=== PATIENT | male | born 1975 | race Hispanic/Latino ===

== ENCOUNTER 2017-01-26 17:33 | Inpatient (IN) | payer OTHER ==
[2017-01-26] MEDS ORDERED: HYDROmorphone 2 mg/ml ISec IVP STA (18:03)
--- NOTE | 2017-01-26 18:11 | ED PDOC ---
Arrival/HPI - General Chief Complaint: Male Genitourinary Time Seen by Provider: 01/26/17 17:51 Historian: Patient - History of Present Illness Narrative History of Present Illness (Text): 01/26/17 18:04 41yo male with PMHx of DM and PE present with complaint of swollen/painful scrotum x days. States it started as abscess on his left sided buttock clef, which he punctured with drained, but then it became worse and spread to his scrotum. States it became worse 2days ago, but he decided to come in today because he is unable to urinate note secondary to the scrotal swelling. States the penis went inside, covered by the scrotal swelling. He denies fever, chills , nausea, vomiting, abdominal pain in ED. Past Medical History - Provider Review Nursing Documentation Reviewed: Yes - Tetanus Immunization Tetanus Immunization: Unknown - Cardiac Hx Cardiac Disorders: Yes Hx Hypertension: Yes Hx Peripheral Edema: Yes - Pulmonary Hx Respiratory Disorders: Yes Hx Chronic Obstructive Pulmonary Disease (COPD): Yes Hx Pulmonary Embolism: Yes Hx Sleep Apnea: Yes - Neurological Hx Neurological Disorder: No - HEENT Hx HEENT Disorder: No - Renal Hx Renal Disorder: No - Endocrine/Metabolic Hx Endocrine Disorders: Yes Hx Diabetes Mellitus Type 1: Yes - Hematological/Oncological Hx Blood Disorders: No - Integumentary Hx Dermatological Disorder: No - Musculoskeletal/Rheumatological Hx Musculoskeletal Disorders: Yes Hx Back Pain: Yes Hx Falls: No - Gastrointestinal Hx Gastrointestinal Disorders: No - Genitourinary/Gynecological Hx Genitourinary Disorders: No - Psychiatric Hx Psychophysiologic Disorder: No Hx Substance Use: Yes - Past Surgical History Past Surgical History: No Previous - Suicidal Assessment Feels Threatened In Home Enviroment: No Family/Social History - Physician Review Nursing Documentation Reviewed: Yes Family/Social History: Unknown Family HX Smoking Status: Heavy Smoker > 10 Cigarettes Daily Hx Alcohol Use: No Hx Substance Use: Yes Allergies/Home Meds Allergies/Adverse Reactions: Allergies No Known Allergies Allergy (Verified 01/26/17 17:55) Home Medications: Home Meds Medication Instructions Recorded Confirmed Atorvastatin [Lipitor] 40 mg PO DAILY 01/26/17 01/26/17 Cholecalciferol [Vitamin D] 50,000 unit PO SAT 01/26/17 01/26/17 Clindamycin [Cleocin] 300 mg PO TID 01/26/17 01/26/17 Dulaglutide [Trulicity] 1.5 mg SC QWK 01/26/17 01/26/17 Empagliflozin [Jardiance] 10 mg PO BID 01/26/17 01/26/17 Furosemide [Lasix] 40 mg PO DAILY 01/26/17 01/26/17 Glyburide/Metformin HCl 2 tab PO BID 01/26/17 01/26/17 [Glyburide-Metformin 2.5-500 mg] Insulin Glargine,Hum.rec.anlog 60 unit SQ DAILY 01/26/17 01/26/17 [Toucristelao Solostar] Potassium Chloride [K-Dur 20] 20 meq PO BID 01/26/17 01/26/17 Pregabalin [Lyrica] 75 mg PO BID 01/26/17 01/26/17 Venlafaxine [Effexor-XR] 75 mg PO DAILY 01/26/17 01/26/17 Warfarin [Coumadin] 5 mg PO QOTHERDAY 01/26/17 01/26/17 Warfarin [Coumadin] 6 mg PO MWF 01/26/17 01/26/17 oxyCODONE [oxyCODONE Immediate 30 mg PO TID PRN 01/26/17 01/26/17 Release Tab] Review of Systems - Physician Review All systems were reviewed & negative as marked: Yes - Review of Systems Constitutional: Normal Eyes: Normal ENT: Normal Respiratory: Normal Cardiovascular: Normal Gastrointestinal: Normal Genitourinary Male: Other (Scrotal swelling) Musculoskeletal: Normal Skin: Normal Neurological: Normal Endocrine: Normal Hemo/Lymphatic: Normal Psychiatric: Normal Physical Exam Vital Signs Reviewed: Yes Vital Signs Temp Pulse Resp BP Pulse Ox 01/26/17 17:52 99.1 F 107 H 20 135/74 97 Temperature: Afebrile Blood Pressure: Normal Pulse: Tachycardic Respiratory Rate: Normal Appearance: Positive for: Well-Appearing, Non-Toxic, Comfortable, Other ( Morbidly obese) Pain Distress: Moderate Mental Status: Positive for: Alert and Oriented X 3 - Systems Exam Head: Present: Atraumatic, Normocephalic Pupils: Present: PERRL Extroacular Muscles: Present: EOMI Conjunctiva: Present: Normal Mouth: Present: Moist Mucous Membranes Neck: Present: Normal Range of Motion Respiratory/Chest: Present: Clear to Auscultation, Good Air Exchange. No: Respiratory Distress, Accessory Muscle Use Cardiovascular: Present: Regular Rate and Rhythm, Normal S1, S2. No: Murmurs Abdomen: Present: Normal Bowel Sounds. No: Tenderness, Distention, Peritoneal Signs Genitourinary Male: Present: Testicle Tenderness, Erythema (From the mid buttocks cleft to diffuse scrotum), Testicle Swelling, Other (No crepitus was noted). No: Penile Swelling (Unable to visualize secondary to scrotal swelling) Back: Present: Normal Inspection Upper Extremity: Present: Normal Inspection. No: Cyanosis, Edema Lower Extremity: Present: Normal Inspection. No: Edema Neurological: Present: GCS=15, CN II-XII Intact, Speech Normal Skin: Present: Warm, Dry, Normal Color. No: Rashes Psychiatric: Present: Alert, Oriented x 3, Normal Insight, Normal Concentration Medical Decision Making ED Course and Treatment: 01/26/17 21:02 IMPRESSION: 1. There is significant scrotal wall thickening/swelling. Clinical correlation is recommended. See the CT abdomen/pelvis report from the same day for further discussion. 2. Increased vascular flow is visualized within the right epididymis, consistent with epididymitis. 3. Bilateral epididymal cysts. There is enlargement of the bilateral epididymal heads, which are heterogeneous in echogenicity. 4. There is physiologic vascular flow within the bilateral testes, without evidence of torsion. 01/26/17 21:03 IMPRESSION: 1. Significant scrotal fluid and surrounding soft tissue swelling are visualized. There are multiple foci of gas within the scrotum extending towards the perineum. In the absence of trauma, these findings are concerning for necrotizing infection/necrotizing fasciitis. 2. Enlarging lymph nodes are seen bilaterally. Mildly enlarged intrapelvic lymph nodes are also visualized. 3. The gallbladder is distended with layering sludge and probable gallstones. Clinical correlation is recommended. 4. There is hypodense fatty infiltration of the liver. Hepatomegaly. 5. Splenomegaly. 6. Incidental/non-acute findings are described above. Dictated By: Lance Garcia MD, MD Dictated Date/Time: 01/26/171932 Signed By: Lance Moore MD Date Signed: 1932 Transcribed By: OLIMPIA Transcribe Date/Time : 01/26/171932 SANJAY/BETO 01/26/17 21:04 PT presented for stated history. He was physically in pain. His pain was controlled in ED with medication. He had prominent erythema/swelling of his perineum/scrotum. He have leukocytosis. Plasma Lactic acid was elevated. He was also hyponatremic. both Abdominal/pelvic/Testicular imaging result as noted above. Case was DW Dr. Cummins, while he was in ED. He saw the patient and accepted pt to his service. He requested Drs. Lara, Araseli, sami consult. Case was DW the surgical sales representative who saw pt in ED and DC findings with Dr. Lara. the community development aide paged Dr. Lara without response. The Resident notes that Dr Mclean wants him to call him back after seeing the pt. Dr. Lara is aware of the case and plan to take patient to OR at 1000pm. Dr. gallardo also aware of the case. Pt was started on Vancomycin and Zosyn in ED. Fluid was ordered EKG NSR; RBBB @95bpm the surgical sales representative added VBG. - Lab Interpretations Lab Results: 01/26/17 18:20 01/26/17 18:20 Lab Results 01/26/17 19:18: Lactic Acid 2.7 H 01/26/17 18:20: PT 28.0 H, INR 2.52 H, APTT 37.7 H 01/26/17 18:20: Sodium 129 L, Potassium 4.1, Chloride 97 L, Carbon Dioxide 23, Anion Gap 14, BUN 11, Creatinine 0.8, Est GFR ( Amer) > 60, Est GFR (Non- Af Amer) > 60, Random Glucose 163 H, Calcium 9.1, Total Bilirubin 1.0, AST 32, ALT 25, Alkaline Phosphatase 155 H, Total Protein 7.1, Albumin 3.5, Globulin 3.6 , Albumin/Globulin Ratio 1.0 L 01/26/17 18:20: WBC 20.2 H D, RBC 4.31, Hgb 12.5 L, Hct 37.6 L, MCV 87.2, MCH 29.0, MCHC 33.2, RDW 16.2 H, Plt Count 207, MPV 9.9, Gran % 87.9 H, Lymph % ( Auto) 6.3 L, White % (Auto) 5.6, Eos % (Auto) 0.1 L, Baso % (Auto) 0.1, Gran # 17.78 H, Lymph # 1.3, White # 1.1 H, Eos # 0.0, Baso # 0.02 - RAD Interpretation Radiology Orders: 01/26/17 18:03 ABD & PELVIS IV CONTRAST ONLY [CT] Stat 01/26/17 19:16 TESTES DUPLEX COMPLETE [US] Stat - Medication Orders Current Medication Orders: Hydromorphone HCl (Dilaudid) 1 mg IVP Q4H PRN PRN Reason: Pain, severe (8-10) Sodium Chloride (Sodium Chloride 0.9%) 1,000 mls @ 999 mls/hr IV .Q1H1M STA Stop: 01/26/17 21:46 Last Admin: 01/26/17 20:50 Dose: 999 mls/hr eMAR Start Stop Document 01/26/17 20:50 EQ (Rec: 01/26/17 20:50 EQ [id number]) Intravenous Solution Start Date 01/26/17 Start Time 20:50 Ondansetron HCl (Zofran Inj) 4 mg IVP Q6H PRN PRN Reason: Nausea/Vomiting Discontinued Medications Hydromorphone HCl (Dilaudid) 2 mg IVP STAT STA Stop: 01/26/17 18:04 Last Admin: 01/26/17 18:26 Dose: 2 mg MAR Pain Assessment Document 01/26/17 18:26 EQ (Rec: 01/26/17 18:26 EQ [id number]) Pain Reassessment Is this a pain reassessment? No Sleep Is patient sleeping during reassessment? No Presence of Pain Presence of Pain Yes Pain Scale Used Pain Scale Used Numeric IVP Administration Document 01/26/17 18:26 EQ (Rec: 01/26/17 18:26 EQ [id number]) Charges for Administration # of IVP Administrations 1 Vancomycin HCl (Vancomycin 1gm) 1 gm in 250 mls @ 167 mls/hr IVPB STAT STA PRN Reason: Protocol Stop: 01/26/17 20:52 Last Admin: 01/26/17 20:50 Dose: 167 mls/hr eMAR Start Stop Document 01/26/17 20:50 EQ (Rec: 01/26/17 20:51 EQ [id number]) Intravenous Solution Start Date 01/26/17 Start Time 20:50 Piperacillin Sod/Tazobactam Sod (Zosyn 3.375 In Ns 100ml) 100 mls @ 200 mls/hr IVPB STAT STA PRN Reason: Protocol Stop: 01/26/17 19:53 Last Admin: 01/26/17 20:36 Dose: 200 mls/hr eMAR Start Stop Document 01/26/17 20:36 EQ (Rec: 01/26/17 20:36 EQ [id number]) Intravenous Solution Start Date 01/26/17 Start Time 20:36 Sodium Chloride 4,500 ml/ IV (SUPPLIES) 4,500 mls @ 9,198.84 mls/hr IV ONCE ONE PRN Reason: 60 ML/KG/HR Stop: 01/26/17 20:47 Disposition/Present on Arrival - Present on Arrival Any Indicators Present on Arrival: No History of DVT/PE: Yes History of Uncontrolled Diabetes: No Urinary Catheter: No History of Decub. Ulcer: No History Surgical Site Infection Following: None - Disposition Have Diagnosis and Disposition been Completed?: Yes Diagnosis: Scrotal abscess, Perirectal abscess, Hyponatremia, Necrotizing fasciitis, Acute epididymitis Disposition: HOSPITALIZED Disposition Time: 19:30 Patient Problems: Current Active Problems Problem Status Onset Acute epididymitis Acute Hyponatremia Acute Necrotizing fasciitis Acute Perirectal abscess Acute Scrotal abscess Acute Condition: FAIR
[2017-01-26 18:36] LABS: BASO # 0.02 K/mm3 (0.0-2.0); BASO % 0.1 % (0.0-3.0); EOS % 0.1 % (1.5-5.0); GRAN # 17.78 (1.4-6.5); GRAN % 87.9 % (50.0-68.0); HEMATOCRIT 37.6 % (42.0-52.0); LYMPH # 1.3 (1.2-3.4); LYMPH % 6.3 % (22.0-35.0); MEAN CELL VOLUME 87.2 fl (80.0-105.0); MEAN CORPUSCULAR HGB CONC 33.2 g/dl (31.0-37.0); MEAN PLATELET VOLUME 9.9 fl (7.0-11.0); MONO # 1.1 (0.1-0.6); MONO % 5.6 % (1.0-6.0); RED CELL DISTRIBUTION WIDTH 16.2 % (11.5-14.5); WHITE BLOOD COUNT 20.2 10^3/ul (4.5-11.0)
[2017-01-26 18:42] LABS: ALKALINE PHOSPHATASE 155 U/L (38-126); ALT/SGPT 25 U/L (7-56); AST/SGOT 32 U/L (17-59); BLOOD UREA NITROGEN 11 mg/dL (7-21); CALCIUM 9.1 mg/dL (8.4-10.5); CARBON DIOXIDE 23 mmol/L (21-33); CHLORIDE 97 mmol/L (98-107); GFR AFRICAN-AMERICAN > 60; GLUCOSE,RANDOM 163 mg/dL (70-110); POTASSIUM 4.1 mmol/L (3.6-5.0); SODIUM 129 mmol/L (132-148); TOTAL PROTEIN 7.1 g/dL (5.8-8.3)
[2017-01-26] MEDS ORDERED: Iohexol 350 MG/100 ML VIAL ONE (18:49)
[2017-01-26] MEDS ORDERED: Vancomycin 1gm in NS 250ml 1 GM/250 ML BAG IVPB STA (19:23)
[2017-01-26] MEDS ORDERED: Piperacillin/Tazobact 3.375 gm 100 ML IVPB STA (19:24)
--- NOTE | 2017-01-26 19:34 | CT ---
EXAM: CT Abdomen and Pelvis With Intravenous Contrast EXAM DATE/TIME: 01/26/2017 6:03 PM CLINICAL HISTORY: The patient age is 41 years old and is male; Condition or disease; Abscess; Abscess location: Scrotal abcess; Additional info: Pelvic scrotal pain/swelling Facility exam id and description: Ct abdpelciv abd pelvis iv contrast only TECHNIQUE: Axial computed tomography images of the abdomen and pelvis with intravenous contrast. All CT scans at this facility use one or more dose reduction techniques, viz.: automated exposure control; ma/kV adjustment per patient size (including targeted exams where dose is matched to indication; i.e. head); or iterative reconstruction technique. Coronal and sagittal reformatted images were created and reviewed. CONTRAST: 100 mL of omni administered intravenously. COMPARISON: No relevant prior studies available. FINDINGS: Lower thorax: Mild atelectatic changes are identified within the right middle lobe of the lung. ABDOMEN: Liver: There is hypodense fatty infiltration of the liver. The liver measures 21.9 cm in the craniocaudad dimension, consistent with hepatomegaly. Gallbladder and bile ducts: The gallbladder is distended with layering sludge and probable gallstones of increased density. Pancreas: Normal contour, without acute peripancreatic stranding. Spleen: The spleen measures 14.6 cm in the AP dimension, consistent with splenomegaly. Adrenals: No mass. Kidneys and ureters: Mild nonspecific bilateral perinephric standing is seen. There is no hydronephrosis bilaterally. Stomach and bowel: There is moderate fecal material within the colon. Appendix: No findings to suggest acute appendicitis. PELVIS: Bladder: No mass. Reproductive: Calcifications identified within the prostate. ABDOMEN and PELVIS: Intraperitoneal space: No free air. Bones/joints: Degenerative changes are identified within the visualized lower thoracic spine. Soft tissues: There is significant soft tissue swelling within each groin and anterior pelvic soft tissues extending into the scrotum. Significant scrotal fluid is visualized. There are multiple foci of gas within the scrotum extending towards the perineum. In the absence of trauma, these findings are concerning for necrotizing infection/necrotizing fasciitis. There is a small fat containing ventral abdominal hernia. Vasculature: Mild atherosclerotic changes are identified. No abdominal aortic aneurysm. Lymph nodes: Enlarging lymph nodes are seen bilaterally. A left inguinal lymph node measures 2.3 cm in length. Mildly enlarged intrapelvic lymph nodes are also visualized. There is no significant retroperitoneal lymphadenopathy. IMPRESSION: 1. Significant scrotal fluid and surrounding soft tissue swelling are visualized. There are multiple foci of gas within the scrotum extending towards the perineum. In the absence of trauma, these findings are concerning for necrotizing infection/necrotizing fasciitis. 2. Enlarging lymph nodes are seen bilaterally. Mildly enlarged intrapelvic lymph nodes are also visualized. 3. The gallbladder is distended with layering sludge and probable gallstones. Clinical correlation is recommended. 4. There is hypodense fatty infiltration of the liver. Hepatomegaly. 5. Splenomegaly. 6. Incidental/non-acute findings are described above.
[2017-01-26 19:50] LABS: INR 2.52 (0.93-1.08); PARTIAL THROMBOPLASTIN TIME 37.7 Seconds (25.1-36.5)
--- NOTE | 2017-01-26 20:23 | CP.PCM.HP ---
<Edinson Carrera - Last Filed: 01/26/17 21:53> History of Present Illness - History of Present Illness History of Present Illness: CC: swollen/painful scrotum Subjective: HPI: Patient is a 41 year old male with past medical history of DM, hyperlipidemia, and PE who presents to the Ed for evaluation and treatment of swollen/painful scrotum which began 2 days ago. Patient states there was a lesion on his left buttock which he punctured with a needle leading to yellow drainage. The lesion then spread to his scrotum since drainage.States that he experienced multiple buttock lesions in the past. Admits to sharp localized pain in the scrotal region. Rated a 10/10. Exacerbated by touch and movement. No relieving factors. Admits to decreased urine output which he attributes to the scrotal swelling. Denies recent travel and sick contacts. Patient denies intractable headache, fever, chills, dizziness, blurry vision, ringing in the ears, chest pain, shortness of breath, abdominal pain, nausea, vomiting, diarrhea, constipation, and urinary symptoms. ROS: 12 point review of systems negative except as indicated in HPI PMHx: diabetes, pulmonary embolism, hyperlipidemia, depression PSHx: denies Family Hx: mother- breast cancer; father- colon cancer Social Hx: denies ETOH use, 1 ppd tobacco use for 30 years, denies illicit drug use Medications: Please see medication reconciliation PMD: lizzette smith Pharmacy: medicaid Physical Examination: - Constitutional Appears: Non-toxic, No Acute Distress - Head Exam Head Exam: atraumatic, normocephalic - Eye Exam Eye Exam: Normal appearance, PERRL. absent: Scleral icterus - ENT Exam ENT Exam: Mucous Membranes Moist - Neck Exam Neck exam: Normal Inspection - Respiratory Exam Respiratory Exam: Normal Breathing Pattern - Cardiovascular Exam Cardiovascular Exam: +S1, +S2. absent: Gallop, JVD - GI/Abdominal Exam GI & Abdominal Exam: Normal Bowel Sounds, absent: Distended, Guarding, Pulsatile Mass, Rebound, Rigid - Genital Exam Genital exam: Testicle Tenderness, Erythema (From the mid buttocks cleft to diffuse scrotum), Testicle Swelling, No crepitus was noted. Unable to visualize penis secondary to scrotal swelling - Extremities Exam Extremities exam: Negative for: calf tenderness - Neurological Exam Neurological exam: Patient is awake, alert, responds to verbal stimuli, answers questions appropriately, follows commands, and moves extremities past midline - Psychiatric Exam Psychiatric exam: Normal Affect, Normal Mood - Skin Skin Exam: warm and dry Assessment and Plan: Patient is a 41 year old male with past medical history of DM and PE who presents to the Ed for evaluation and treatment of swollen/painful scrotum. Symptoms of [place] Gangrene; Necrotizing infection/necrotizing fasciitis; Sepsis - greater than 2/4 SIRS criteria met in setting of infectious source - lactic acid elevated - blood cultures x 2 - wound cultures - urine culture - IVF 30cc/kg bolus and IVF maintainence fluids - vancomycin and zosyn - CT abdomen and pelvis IV contrast only- 1. Significant scrotal fluid and surrounding soft tissue swelling are visualized. There are multiple foci of gas within the scrotum extending towards the perineum. In the absence of trauma, these findings are concerning for necrotizing infection/necrotizing fasciitis. 2. Enlarging lymph nodes are seen bilaterally. Mildly enlarged intrapelvic lymph nodes are also visualized. 3. The gallbladder is distended with layering sludge and probable gallstones. 4. There is hypodense fatty infiltration of the liver. Hepatomegaly. 5. Splenomegaly - testicular ultrasound is pending - pain control diluadid prn - general surgery consulted- appreciate recommendations- OR today for potential debridement - urology consulted- appreciated recommendations - infectious disease is consulted- appreciate recommendations Electrolyte Abnormality - hyponatremia IVF - repleted and monitor closely via CMP Elevated INR - patient is on warfarin for PE - FFP ordered- OR planned for today Hx of PE - HR and BP reviewed, trended, and appreciated - hold warfarin as per surgery team Hx of Anemia - Hgb reviewed, trended, and appreciated - monitor closely via CBC - consider iron, tibc, ferritin, peripheral smear pending patients clinical course Hx of Hyperlipidemia - c/w statin - lipid profile pending Hx of Diabetes - hold home diabetic medications - fingersticks ACHS - insulin sliding scale- lispro medium - resume diet as carb consistent once no longer NPO Tobacco Abuse - nicotine patch offered - smoking cessation advised - patient education provided on dangers of tobacco abuse Prophylaxis - DVT ppx- patients INR between 2-3, hold coumadin, will add subq heparin pending patients clinical course - GI ppx- protonix Patient case discussed with and plan approved by attending physician. 01/26/17 20:06 Present on Admission - Present on Admission Any Indicators Present on Admission: Yes Past Patient History - Tetanus Immunizations Tetanus Immunization: Unknown - Past Social History Smoking Status: Heavy Smoker > 10 Cigarettes Daily - CARDIAC Hx Cardiac Disorders: Yes Hx Hypertension: Yes Hx Peripheral Edema: Yes - PULMONARY Hx Respiratory Disorders: Yes Hx Chronic Obstructive Pulmonary Disease (COPD): Yes Hx Pulmonary Embolism: Yes Hx Sleep Apnea: Yes - NEUROLOGICAL Hx Neurological Disorder: No - HEENT Hx HEENT Problems: No - RENAL Hx Chronic Kidney Disease: No - ENDOCRINE/METABOLIC Hx Endocrine Disorders: Yes Hx Diabetes Mellitus Type 1: Yes - HEMATOLOGICAL/ONCOLOGICAL Hx Blood Disorders: No - INTEGUMENTARY Hx Dermatological Problems: No - MUSCULOSKELETAL/RHEUMATOLOGICAL Hx Musculoskeletal Disorders: Yes Hx Back Pain: Yes Hx Falls: No - GASTROINTESTINAL Hx Gastrointestinal Disorders: No - GENITOURINARY/GYNECOLOGICAL Hx Genitourinary Disorders: No - PSYCHIATRIC Hx Psychophysiologic Disorder: No Hx Substance Use: Yes - SURGICAL HISTORY Hx Surgeries: No Meds Allergies/Adverse Reactions: Allergies Allergy/AdvReac Type Severity Reaction Status Date / Time No Known Allergies Allergy Verified 01/26/17 17:55 Results - Vital Signs Recent Vital Signs: Last Vital Signs Temp 99.1 F 01/26/17 17:52 Pulse 107 H 01/26/17 17:52 Resp 20 01/26/17 17:52 BP 135/74 01/26/17 17:52 Pulse Ox 97 01/26/17 17:52 - Labs Result Diagrams: 01/26/17 18:20 01/26/17 18:20 <Maria GDakotah U - Last Filed: 02/07/17 14:49> Results - Vital Signs Recent Vital Signs: Last Vital Signs Temp 97.8 F 02/02/17 08:15 Pulse 57 L 02/02/17 09:13 Resp 18 02/02/17 08:15 BP 137/73 02/02/17 09:13 Pulse Ox 96 02/02/17 08:15 - Labs Result Diagrams: 02/02/17 05:30 02/02/17 05:30 Attending/Attestation - Attestation I have personally seen and examined this patient.: Yes I have fully participated in the care of the patient.: Yes I have reviewed all pertinent clinical information: Yes Notes (Text): Please read/see my dictated notes.
--- NOTE | 2017-01-26 20:42 | CP.PCM.CON ---
History of Present Illness - History of Present Illness History of Present Illness: General Surgery Consult Note for Dr. Lara Reason for consult: Perineal erythema and edema with Ct findings concerning for Dakota'guillermo 41 M with past medical history of DM, hyperlipidemia, DVT and PE who presents to [facility] for swollen and painful scrotum/perineum which began 2 days ago. Patient states he discovered a "boil" on his left buttock 5 days ago which he punctured with a needle to drain. The lesion did not get better and then spread to his scrotum. He states that entire perineum is extremely swollen and painful. The swelling is so severe that he is unable to urinate properly. He reports to having experienced countless buttock lesions in the past that he has drained in similar manner. He rates pain as severe. He describes pain as constant and sharp located in his scrotum with radiation throughout perineum to rectum. He states it is exacerbated by touch and movement. Denies alleviating factors. swelling. Admits subjective fever/chills, diaphoresis, nausea and constipation. Denies headache, SOB, chest pain, abdominal pain, vomiting, diarrhea, incontinence. PMHx: diabetes, pulmonary embolism, hyperlipidemia, depression Meds: as per EMR Allergy: NKDA PSHx: denies Family Hx: breast cancer, colon cancer Social: denies ETOH use, 1 ppd tobacco use for 30 years, denies illicit drug use Review of Systems - Review of Systems All systems: reviewed and no additional remarkable complaints except (as per HPI ) Past Patient History - Tetanus Immunizations Tetanus Immunization: Unknown - Past Social History Smoking Status: Heavy Smoker > 10 Cigarettes Daily - CARDIAC Hx Cardiac Disorders: Yes Hx Hypertension: Yes Hx Peripheral Edema: Yes - PULMONARY Hx Respiratory Disorders: Yes Hx Chronic Obstructive Pulmonary Disease (COPD): Yes Hx Pulmonary Embolism: Yes Hx Sleep Apnea: Yes - NEUROLOGICAL Hx Neurological Disorder: No - HEENT Hx HEENT Problems: No - RENAL Hx Chronic Kidney Disease: No - ENDOCRINE/METABOLIC Hx Endocrine Disorders: Yes Hx Diabetes Mellitus Type 1: Yes - HEMATOLOGICAL/ONCOLOGICAL Hx Blood Disorders: No - INTEGUMENTARY Hx Dermatological Problems: No - MUSCULOSKELETAL/RHEUMATOLOGICAL Hx Musculoskeletal Disorders: Yes Hx Back Pain: Yes Hx Falls: No - GASTROINTESTINAL Hx Gastrointestinal Disorders: No - GENITOURINARY/GYNECOLOGICAL Hx Genitourinary Disorders: No - PSYCHIATRIC Hx Psychophysiologic Disorder: No Hx Substance Use: Yes - SURGICAL HISTORY Hx Surgeries: No Meds Allergies/Adverse Reactions: Allergies Allergy/AdvReac Type Severity Reaction Status Date / Time No Known Allergies Allergy Verified 01/26/17 17:55 - Medications Medications: Current Medications Vancomycin HCl (Vancomycin 1gm) 1 gm in 250 mls @ 167 mls/hr IVPB STAT STA PRN Reason: Protocol Stop: 01/26/17 20:52 Physical Exam - Constitutional Appears: Toxic, In Acute Distress - Head Exam Head Exam: ATRAUMATIC, NORMOCEPHALIC - Eye Exam Eye Exam: EOMI, Normal appearance Pupil Exam: PERRL - ENT Exam ENT Exam: Mucous Membranes Dry - Respiratory Exam Respiratory Exam: NORMAL BREATHING PATTERN - Cardiovascular Exam Cardiovascular Exam: Tachycardia - GI/Abdominal Exam GI & Abdominal Exam: Hernia (reducible ventral hernia), Soft. absent: Tenderness - Exam Exam: Scrotal Swelling, Testicular Tenderness. absent: Uretheral Discharge Additional comments: tender to palpation, erythema, edema through perineum - Extremities Exam Extremities exam: Positive for: normal capillary refill, pedal edema, pedal pulses present - Back Exam Back exam: absent: CVA tenderness (L), CVA tenderness (R) - Neurological Exam Neurological exam: Alert, CN II-XII Intact, Oriented x3 - Psychiatric Exam Psychiatric exam: Normal Affect, Normal Mood - Skin Skin Exam: Dry, Warm Additional comments: erythema/edema in scrotum and perineum numerous scars from previous lanced boils on bilateral buttock and groin Results - Vital Signs Recent Vital Signs: Last Vital Signs Temp 99.1 F 01/26/17 17:52 Pulse 107 H 01/26/17 17:52 Resp 20 01/26/17 17:52 BP 135/74 01/26/17 17:52 Pulse Ox 97 01/26/17 17:52 - Labs Result Diagrams: 01/26/17 18:20 01/26/17 18:20 Assessment & Plan - Assessment and Plan (Free Text) Plan: 41 M with multiple perirectal and scrotal abscesses with CT findings of gas in scrotum and rectum -OR for I&D -Aggressive IV hydration -IV antibiotics -Analgesics/Antiemetics PRN -FFP for coagulopathy -Monitor H/H -Discussed with Dr. Marco Shelby PGY1
[2017-01-26] MEDS ORDERED: Sodium Chloride 0.9% 1,000 ML IV STA (20:46)
--- NOTE | 2017-01-26 20:50 | US ---
EXAM: US Scrotum EXAM DATE/TIME: 01/26/2017 7:16 PM CLINICAL HISTORY: The patient age is 41 years old and is male; Pain; Scrotum pain; Additional info: Testicular swelling/pain Facility exam id and description: Us testidp testes duplex complete TECHNIQUE: Real-time ultrasound of the scrotum with color Doppler and image documentation. COMPARISON: CT - ABD PELVIS IV CONTRAST ONLY 01/26/2017 6:57:16 PM FINDINGS: Right testicle: The right testis measures 3.1 x 1.8 x 1.6 cm. There is physiologic vascular flow within the right testis, without evidence of torsion. No intratesticular mass. Left testicle: The left testis measures 2.7 x 1.9 x 2.6 cm. There is physiologic vascular flow within the left testis, without evidence of torsion. No intratesticular mass Epididymides: The right epididymal head is enlarged and heterogeneous in echogenicity measuring 2.2 x 1.6 x 1.4 cm. Within the right epididymal head, there is a hypoechoic cyst measuring 0.7 x 0.5 x 0.7 cm. Increased vascular flow is visualized within the right epididymis, consistent with epididymitis. The left epididymal head measures 3.4 x 1.2 x 1.1 cm and is enlarged. Within the left epididymal head, there is a 0.4 x 0.3 by 0.5 cm hypoechoic cyst. An additional tiny hypoechoic cyst is seen within the left epididymal head. Scrotum: There is significant scrotal wall thickening/swelling. This measures up to 1.7 cm in thickness. IMPRESSION: 1. There is significant scrotal wall thickening/swelling. Clinical correlation is recommended. See the CT abdomen/pelvis report from the same day for further discussion. 2. Increased vascular flow is visualized within the right epididymis, consistent with epididymitis. 3. Bilateral epididymal cysts. There is enlargement of the bilateral epididymal heads, which are heterogeneous in echogenicity. 4. There is physiologic vascular flow within the bilateral testes, without evidence of torsion.
[2017-01-26] MEDS ORDERED: HYDROmorphone 1 mg/ml ISec IVP PRN (20:55)
[2017-01-26 21:04] LABS: URINE BILIRUBIN NEGATIVE (NEGATIVE); URINE BLOOD LARGE (NEGATIVE); URINE GLUCOSE (UA) >=1000 mg/dL (NEGATIVE); URINE KETONE NEGATIVE (NEGATIVE); URINE LEUKOCYTE ESTERASE TRACE Leu/uL (NEGATIVE); URINE PROTEIN 30 mg/dL (<30 mg/dL); URINE UROBILINOGEN 0.2 E.U./dL (<1 E.U./dL)
[2017-01-26 21:11] LABS: URINE APPEARANCE CLEAR (CLEAR); URINE COLOR YELLOW (YELLOW)
[2017-01-26] MEDS ORDERED: Sodium Chloride 0.9% 1,000 ML IV SCH ×4 (21:15→23:26)
[2017-01-26 21:24] LABS: VENOUS BLOOD GAS BASE EXCESS -0.4 mmol/L (0.0-2.0); VENOUS BLOOD PH 7.31 (7.32-7.43)
[2017-01-26 21:31] LABS: CHOLESTEROL 175 mg/dL (130-200)
[2017-01-26 21:45] LABS: URINE AMORPHOUS SEDIMENT SMALL; URINE BACTERIA MANY (NEG)
[2017-01-26] MEDS ORDERED: Bupivacaine 0.5% Inj(30mL) ONE (21:57)
[2017-01-26] MEDS ORDERED: Oxychlorosene Topical 2 gm Packet TOP ONE (21:58)
[2017-01-26] MEDS ORDERED: Morphine 2 mg/ml ISec IVP PRN (22:06)
[2017-01-26] MEDS ORDERED: Propofol 10 mg/ml Inj (20 ML) ONE (22:20)
[2017-01-26] MEDS ORDERED: Midazolam 2 MG/2 ML VIAL ONE (22:21)
[2017-01-26] MEDS ORDERED: metroNIDAZOLE IV 500 mg/100 ml 500 MG/100 ML BAG ONE (22:23)
[2017-01-26 22:30] VITALS: BMI 44.6
[2017-01-26] MEDS ORDERED: Sevoflurane - Inhalation Anesthetic Liq (250 ml) ONE (22:59)
[2017-01-26] MEDS ORDERED: Ergocalciferol 50,000 Intl Units Cap PO SCH (23:01)
--- NOTE | 2017-01-26 23:25 | PCM.SURG1 ---
Surgeon's Initial Post Op Note - Surgeon's Notes Surgeon: Dr. Lara Maintenance Of Way Supervisor: Heron Ellison PGY1 Type of Anesthesia: General Mask Anesthesia Administered By: Dr. 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
[2017-01-26] MEDS ORDERED: HYDROmorphone 2 mg/ml ISec IVP PRN (23:43)
[2017-01-27] MEDS ORDERED: Piperacillin/Tazobact 3.375 gm 100 ML IVPB SCH
--- NOTE | 2017-01-27 00:34 | CP.PCM.CON ---
<Edinson Carrera - Last Filed: 01/27/17 00:10> History of Present Illness - History of Present Illness History of Present Illness: CC: swollen/painful scrotum Subjective: HPI: Patient is a 41 year old male with past medical history of DM, hyperlipidemia, and PE who presented to the Ed for evaluation and treatment of swollen/painful scrotum which began 2 days ago. Patient states there was a lesion on his left buttock which he punctured with a needle leading to yellow drainage. The lesion then spread to his scrotum since drainage.States that he experienced multiple buttock lesions in the past. Admits to sharp localized pain in the scrotal region. Rated a 10/10. Exacerbated by touch and movement. No relieving factors. Admits to decreased urine output which he attributes to the scrotal swelling. Denies recent travel and sick contacts. Patient was taken to the OR for surgical intervention and was transferred to the ICU for management of initial post operative course. Patient denies intractable headache, fever, chills, dizziness, blurry vision, ringing in the ears, chest pain, shortness of breath, abdominal pain, nausea, vomiting, diarrhea, constipation, and urinary symptoms. ROS: 12 point review of systems negative except as indicated in HPI PMHx: diabetes, pulmonary embolism, hyperlipidemia, depression PSHx: denies Family Hx: mother- breast cancer; father- colon cancer Social Hx: denies ETOH use, 1 ppd tobacco use for 30 years, denies illicit drug use Medications: Please see medication reconciliation PMD: lizzette smith Pharmacy: medicaid Physical Examination: - Constitutional Appears: Non-toxic, No Acute Distress - Head Exam Head Exam: atraumatic, normocephalic - Eye Exam Eye Exam: Normal appearance, PERRL. absent: Scleral icterus - ENT Exam ENT Exam: Mucous Membranes Moist - Neck Exam Neck exam: Normal Inspection - Respiratory Exam Respiratory Exam: Normal Breathing Pattern - Cardiovascular Exam Cardiovascular Exam: +S1, +S2. absent: Gallop, JVD - GI/Abdominal Exam GI & Abdominal Exam: Normal Bowel Sounds, absent: Distended, Guarding, Pulsatile Mass, Rebound, Rigid - Genital Exam Genital exam: ruthie catheters in place, packing noted - Extremities Exam Extremities exam: Negative for: calf tenderness - Neurological Exam Neurological exam: Patient is awake, alert, responds to verbal stimuli, answers questions appropriately, follows commands, and moves extremities past midline - Psychiatric Exam Psychiatric exam: Normal Affect, Normal Mood - Skin Skin Exam: warm and dry Assessment and Plan: Patient is a 41 year old male with past medical history of DM and PE who presents to the Ed for evaluation and treatment of swollen/painful scrotum. Neuro - GCS 15 - monitor closely post anesthesia Cardiovascular Hx of Hyperlipidemia - c/w statin - lipid profile reviewed and appreciated- TAG elevated and low HDL Tobacco Abuse - nicotine patch offered - smoking cessation advised - patient education provided on dangers of tobacco abuse Pulm Hx of PE - HR and BP reviewed, trended, and appreciated - hold warfarin as per surgery team - abg reviewed and appreciated- keep SaO2 > 92% GI - alkaline phos elevated- abdominal ultrasound pending as per primary - HH diet as per surgery in AM - ppx via protonix Infectious Disease Multiple Scrotal Abscess; Sepsis - greater than 2/4 SIRS criteria met in setting of infectious source - lactic acid elevated - blood cultures x 2 - wound cultures - urine culture - IVF 30cc/kg bolus and IVF maintainence fluids - c/w vancomycin and meropenem - CT abdomen and pelvis IV contrast only- 1. Significant scrotal fluid and surrounding soft tissue swelling are visualized. There are multiple foci of gas within the scrotum extending towards the perineum. In the absence of trauma, these findings are concerning for necrotizing infection/necrotizing fasciitis. 2. Enlarging lymph nodes are seen bilaterally. Mildly enlarged intrapelvic lymph nodes are also visualized. 3. The gallbladder is distended with layering sludge and probable gallstones. 4. There is hypodense fatty infiltration of the liver. Hepatomegaly. 5. Splenomegaly - testicular ultrasound- reviewed and appreciated 1. There is significant scrotal wall thickening/swelling. 2. Increased vascular flow is visualized within the right epididymis, consistent with epididymitis. 3. Bilateral epididymal cysts. There is enlargement of the bilateral epididymal heads, which are heterogeneous in echogenicity. 4. There is physiologic vascular flow within the bilateral testes, without evidence of torsion. - pain control diluadid prn - general surgery consulted- appreciate recommendations - urology consulted- appreciated recommendations - infectious disease is consulted- appreciate recommendations Renal/Electrolytes Electrolyte Abnormality - hyponatremia- c/w IVF, monitor closely via CMP Heme Hx of Anemia - Hgb reviewed, trended, and appreciated - monitor closely via CBC - consider iron, tibc, ferritin, peripheral smear pending patients clinical course Endo Hx of Diabetes - hold home diabetic medications - fingersticks ACHS - insulin sliding scale- lispro medium - resume diet as carb consistent once no longer NPO - HgbA1c pending Patient case discussed with and plan approved by attending physician. Past Patient History - Tetanus Immunizations Tetanus Immunization: Unknown - Past Social History Smoking Status: Current Some Days Smoker - CARDIAC Hx Cardiac Disorders: Yes Hx Hypertension: Yes Hx Peripheral Edema: Yes - PULMONARY Hx Respiratory Disorders: Yes Hx Chronic Obstructive Pulmonary Disease (COPD): Yes Hx Sleep Apnea: Yes - NEUROLOGICAL Hx Neurological Disorder: No - HEENT Hx HEENT Problems: No Hx Deafness: Yes ([place]) - RENAL Hx Chronic Kidney Disease: No - ENDOCRINE/METABOLIC Hx Endocrine Disorders: Yes Hx Diabetes Mellitus Type 1: Yes - HEMATOLOGICAL/ONCOLOGICAL Hx Blood Disorders: No - INTEGUMENTARY Hx Dermatological Problems: Yes Other/Comment: abscess to buttocks - MUSCULOSKELETAL/RHEUMATOLOGICAL Hx Falls: No - GASTROINTESTINAL Hx Gastrointestinal Disorders: No - GENITOURINARY/GYNECOLOGICAL Other/Comment: scrotum swollen and gangrenedifficulty voiding from swelling - PSYCHIATRIC Hx Psychophysiologic Disorder: No Hx Substance Use: No - SURGICAL HISTORY Hx Surgeries: No - ANESTHESIA Hx Anesthesia Reactions: No (never had) Hx Malignant Hyperthermia: No Meds Allergies/Adverse Reactions: Allergies Allergy/AdvReac Type Severity Reaction Status Date / Time No Known Allergies Allergy Verified 01/26/17 17:55 - Medications Medications: Current Medications Acetylcysteine (Acetylcysteine 20%) 4 ml IH [id number] [facility] Atorvastatin Calcium (Lipitor) 40 mg PO DAILY [facility] Carvedilol (Coreg) 3.125 mg PO BID [facility] Ergocalciferol (Drisdol 50,000 Intl Units Cap) 1 cap PO Q7D [facility] Hydromorphone HCl (Dilaudid) 2 mg IVP Q3H PRN PRN Reason: Pain, moderate (4-7) Sodium Chloride (Sodium Chloride 0.9%) 1,000 mls @ 75 mls/hr IV .[id number] [facility] Stop: 01/27/17 00:16 Meropenem 1 gm/ Dextrose 100 mls @ 100 mls/hr IVPB Q8 JUN PRN Reason: Protocol Stop: 02/02/17 23:16 Vancomycin HCl 1.5 gm/ Sodium (Chloride) 500 mls @ 250 mls/hr IVPB Q12H JUN PRN Reason: Protocol Sodium Chloride (Sodium Chloride 0.9%) 1,000 mls @ 200 mls/hr IV .Q5H [facility] Acetaminophen (Ofirmev) 1,000 mg in 100 mls @ 400 mls/hr IVPB Q6H JUN Stop: 01/29/17 00:16 Insulin Human Lispro (Humalog Med) 0 units SC ACHS JUN PRN Reason: Protocol Insulin Human NPH (Humulin N) 20 units SC ACB JUN Insulin Human NPH (Humulin N) 20 units SC DAILY@1745 [facility] Levalbuterol HCl (Xopenex) 0.63 mg IH [id number] [facility] Morphine Sulfate (Morphine) 2 mg IVP Q15M PRN PRN Reason: Pain, severe (8-10) Stop: 01/27/17 01:00 Nicotine (Nicoderm Cq) 1 patch TD DAILY PRN PRN Reason: URGE TO SMOKE Ondansetron HCl (Zofran Inj) 4 mg IVP Q6H PRN PRN Reason: Nausea/Vomiting Ondansetron HCl (Zofran Inj) 4 mg IVP ONCE PRN PRN Reason: Nausea/Vomiting Stop: 01/27/17 04:00 Pantoprazole Sodium (Protonix Inj) 40 mg IVP DAILY [facility] Polyethylene Glycol (Miralax) 17 gm PO BID [facility] Pregabalin (Lyrica) 75 mg PO BID [facility] Ursodiol (Actigall) 300 mg PO BID [facility] Venlafaxine HCl (Effexor Xr) 75 mg PO DAILY [facility] Results - Vital Signs Recent Vital Signs: Last Vital Signs Temp 98.6 F 01/26/17 22:20 Pulse 98 H 01/26/17 22:37 Resp 19 01/26/17 22:20 BP 179/88 H 01/26/17 22:20 Pulse Ox 95 01/26/17 22:20 - Labs Result Diagrams: 01/26/17 18:20 01/26/17 18:20 Labs: Laboratory Results - last 24 hr 01/26/17 01/26/17 01/26/17 20:49 21:10 21:17 pO2 30 VBG pH 7.31 L VBG pCO2 53.0 VBG HCO3 26.7 VBG Total CO2 28.3 H VBG O2 Sat (Calc) 69.8 H VBG Base Excess -0.4 L VBG Potassium 3.5 L Sodium 129.0 L Chloride 96.0 L Glucose 95 Lactate 1.8 FiO2 21.0 Venous Blood Potassium 3.5 L Urine Color Yellow Urine Appearance Clear Urine pH 6.0 Ur Specific [place] <= 1.005 Urine Protein 30 H Urine Glucose (UA) >=1000 Urine Ketones Negative Urine Blood Large H Urine Nitrate Negative Urine Bilirubin Negative Urine Urobilinogen 0.2 Ur Leukocyte Esterase Trace H Urine RBC 5 - 10 Urine WBC 2 - 5 Ur Epithelial Cells 1 - 3 Amorphous Sediment Small Urine Bacteria Many Blood Type A NEGATIVE Blood Type Confirm Antibody Screen Negative Crossmatch See Detail BBK History Checked No verified bt 01/26/17 21:56 pO2 VBG pH VBG pCO2 VBG HCO3 VBG Total CO2 VBG O2 Sat (Calc) VBG Base Excess VBG Potassium Sodium Chloride Glucose Lactate FiO2 Venous Blood Potassium Urine Color Urine Appearance Urine pH Ur Specific [place] Urine Protein Urine Glucose (UA) Urine Ketones Urine Blood Urine Nitrate Urine Bilirubin Urine Urobilinogen Ur Leukocyte Esterase Urine RBC Urine WBC Ur Epithelial Cells Amorphous Sediment Urine Bacteria Blood Type Blood Type Confirm A NEGATIVE Antibody Screen Crossmatch BBK History Checked <Sarbjit Guzman Q - Last Filed: 01/27/17 01:57> Meds - Medications Medications: Current Medications Acetylcysteine (Acetylcysteine 20%) 4 ml IH [id number] [facility] Atorvastatin Calcium (Lipitor) 40 mg PO DAILY [facility] Carvedilol (Coreg) 3.125 mg PO BID [facility] Last Admin: 01/27/17 00:39 Dose: 3.125 mg Ergocalciferol (Drisdol 50,000 Intl Units Cap) 1 cap PO Q7D [facility] Last Admin: 01/27/17 00:38 Dose: 1 cap Hydromorphone HCl (Dilaudid) 1 mg IVP Q3H PRN PRN Reason: Pain, moderate (4-7) Last Admin: 01/27/17 01:08 Dose: 1 mg Hydromorphone HCl (Dilaudid) 2 mg IVP Q3H PRN PRN Reason: Pain, severe (8-10) Meropenem 1 gm/ Dextrose 100 mls @ 100 mls/hr IVPB Q8 [facility] PRN Reason: Protocol Stop: 02/02/17 23:16 Last Admin: 01/27/17 00:50 Dose: 100 mls/hr Vancomycin HCl 1.5 gm/ Sodium (Chloride) 500 mls @ 250 mls/hr IVPB Q12H JUN PRN Reason: Protocol Acetaminophen (Ofirmev) 1,000 mg in 100 mls @ 400 mls/hr IVPB Q6H JUN Stop: 01/29/17 00:16 Last Admin: 01/27/17 00:39 Dose: 400 mls/hr Sodium Chloride (Sodium Chloride 0.9%) 1,000 mls @ 150 mls/hr IV .Q6H40M [facility] Last Admin: 01/27/17 01:03 Dose: 150 mls/hr Insulin Human Lispro (Humalog Med) 0 units SC ACHS JUN PRN Reason: Protocol Last Admin: 01/27/17 01:16 Dose: Not Given Insulin Human NPH (Humulin N) 20 units SC ACB [facility] Insulin Human NPH (Humulin N) 20 units SC DAILY@1745 [facility] Levalbuterol HCl (Xopenex) 0.63 mg IH [id number] [facility] Nicotine (Nicoderm Cq) 1 patch TD DAILY PRN PRN Reason: URGE TO SMOKE Ondansetron HCl (Zofran Inj) 4 mg IVP Q6H PRN PRN Reason: Nausea/Vomiting Ondansetron HCl (Zofran Inj) 4 mg IVP ONCE PRN PRN Reason: Nausea/Vomiting Stop: 01/27/17 04:00 Pantoprazole Sodium (Protonix Inj) 40 mg IVP DAILY [facility] Polyethylene Glycol (Miralax) 17 gm PO BID [facility] Pregabalin (Lyrica) 75 mg PO BID [facility] Ursodiol (Actigall) 300 mg PO BID [facility] Venlafaxine HCl (Effexor Xr) 75 mg PO DAILY [facility] Results - Vital Signs Recent Vital Signs: Last Vital Signs Temp 98.6 F 01/26/17 22:20 Pulse 98 H 01/26/17 22:37 Resp 19 01/26/17 22:20 BP 179/88 H 01/26/17 22:20 Pulse Ox 95 01/26/17 22:20 - Labs Result Diagrams: 01/27/17 00:20 01/26/17 18:20 Labs: Laboratory Results - last 24 hr 01/26/17 01/26/17 01/26/17 20:49 21:10 21:17 WBC RBC Hgb Hct MCV MCH MCHC RDW Plt Count MPV Gran % Lymph % (Auto) [place] % (Auto) Eos % (Auto) Baso % (Auto) Gran # Lymph # [place] # Eos # Baso # pO2 30 VBG pH 7.31 L VBG pCO2 53.0 VBG HCO3 26.7 VBG Total CO2 28.3 H VBG O2 Sat (Calc) 69.8 H VBG Base Excess -0.4 L VBG Potassium 3.5 L Sodium 129.0 L Chloride 96.0 L Glucose 95 Lactate 1.8 FiO2 21.0 POC Glucose (mg/dL) Venous Blood Potassium 3.5 L Urine Color Yellow Urine Appearance Clear Urine pH 6.0 Ur Specific [place] <= 1.005 Urine Protein 30 H Urine Glucose (UA) >=1000 Urine Ketones Negative Urine Blood Large H Urine Nitrate Negative Urine Bilirubin Negative Urine Urobilinogen 0.2 Ur Leukocyte Esterase Trace H Urine RBC 5 - 10 Urine WBC 2 - 5 Ur Epithelial Cells 1 - 3 Amorphous Sediment Small Urine Bacteria Many Blood Type A NEGATIVE Blood Type Confirm Antibody Screen Negative Crossmatch See Detail BBK History Checked No verified bt 01/26/17 01/27/17 01/27/17 21:56 00:20 01:00 WBC 19.4 H RBC 4.12 Hgb 11.9 L Hct 36.4 L MCV 88.3 MCH 28.9 MCHC 32.7 RDW 16.4 H Plt Count 205 MPV 9.8 Gran % 87.4 H Lymph % (Auto) 6.1 L [place] % (Auto) 6.2 H Eos % (Auto) 0.2 L Baso % (Auto) 0.1 Gran # 16.98 H Lymph # 1.2 [place] # 1.2 H Eos # 0.0 Baso # 0.02 pO2 VBG pH VBG pCO2 VBG HCO3 VBG Total CO2 VBG O2 Sat (Calc) VBG Base Excess VBG Potassium Sodium Chloride Glucose Lactate FiO2 POC Glucose (mg/dL) 120 H Venous Blood Potassium Urine Color Urine Appearance Urine pH Ur Specific [place] Urine Protein Urine Glucose (UA) Urine Ketones Urine Blood Urine Nitrate Urine Bilirubin Urine Urobilinogen Ur Leukocyte Esterase Urine RBC Urine WBC Ur Epithelial Cells Amorphous Sediment Urine Bacteria Blood Type Blood Type Confirm A NEGATIVE Antibody Screen Crossmatch BBK History Checked Attending/Attestation - Attestation I have personally seen and examined this patient.: Yes I have fully participated in the care of the patient.: Yes I have reviewed all pertinent clinical information: Yes Notes (Text): 01/27/17 01:52 I agree with the above note and exam by the resident with the addition of the followin41 y/o male with a PMHx DM, DLD and PE in 08/2014 presented to the ED with a history of worsening 2-3 days of abscess pain as well as scrotal swelling. 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 Patient was taken to the OR by the surgical team where he underwent further drainage of his abscess(es) and exploration for necrotic tissue which was largely not found. The patient has been brought to the ICU now and is resting comfortably with [address] He will remain in the ICU overnight for closer monitoring and care. labs and images reviewed case discussed with both the medical and surgical garment inspector
[2017-01-27 00:37] LABS: BASO # 0.02 K/mm3 (0.0-2.0); BASO % 0.1 % (0.0-3.0); EOS % 0.2 % (1.5-5.0); GRAN # 16.98 (1.4-6.5); GRAN % 87.4 % (50.0-68.0); HEMATOCRIT 36.4 % (42.0-52.0); LYMPH # 1.2 (1.2-3.4); LYMPH % 6.1 % (22.0-35.0); MEAN CELL VOLUME 88.3 fl (80.0-105.0); MEAN CORPUSCULAR HEMOGLOBIN 28.9 pg (25.0-35.0); MEAN CORPUSCULAR HGB CONC 32.7 g/dl (31.0-37.0); MEAN PLATELET VOLUME 9.8 fl (7.0-11.0); MONO # 1.2 (0.1-0.6); MONO % 6.2 % (1.0-6.0); RED CELL DISTRIBUTION WIDTH 16.4 % (11.5-14.5); WHITE BLOOD COUNT 19.4 10^3/ul (4.5-11.0)
[2017-01-27] MEDS: Meropenem 1 GM in Dextrose 5% In Water 100 ML IVPB SCH ×3 (00:50→13:31)
[2017-01-27] MEDS: Sodium Chloride 0.9% 1,000 ML IV SCH ×4 (01:03→21:02)
[2017-01-27] MEDS: HYDROmorphone 1 mg/ml ISec IVP PRN ×3 (01:08→17:15)
[2017-01-27] MEDS: Insulin Lispro (humaLOG) MEDIUM Coverage SC SCH ×5 (01:16→22:04)
[2017-01-27] MEDS: Levalbuterol 0.63 MG/3 ML Inhal Soln UD IH SCH ×4 (02:52→20:07)
[2017-01-27] MEDS: Acetylcysteine 20% Inhal Soln (4ml) IH SCH ×4 (02:52→20:07)
--- NOTE | 2017-01-27 05:58 | HP ---
HISTORY OF PRESENT ILLNESS: The patient is a 41-year-old morbidly obese male presented to the [facility] Emergency Room. The patient came to the Emergency Room by the [facility]. The patient stated that the patient has been noticing increasing of scrotal swelling and redness and pain with severe pain in the perineum, perirectal area and scrotum area of 10/10. The patient stated that the patient's symptoms started about few days ago when he noticed a blister around the perineum area which he busted and after that the patient noticed the redness and swelling of the perineum area, swelling of the scrotum and the patient also noted that he had difficulty urinating and probably in the last 24 hours, the patient's stats he could even not urinate because his penis was all buried into the scrotum. The patient also stated that he had a boil on the left side of the buttock, which he punctured with the needle and it became worse and spread to the scrotum. The patient states that all of this is happened in the last 3-5 days, but the patient came to the Emergency Room today. The patient also stated that he was unable to urinate secondary to scrotal swelling and the penis going inside the scrotum. The patient also reported swelling and painful scrotum for the last 3-5 days and this happened after the patient punctured left buttock and left gluteal area blister around the perineum area, which the patient noted that he had purulent discharge. After that, the patient noted that the swelling and redness spread anteriorly around the scrotum. The patient stated that the pain scale was 10/10. CODE STATUS: Full code. The patient was seen in stretcher #18 in the Emergency Room. The patient is lying in the bed with the patient's son at bedside. LIVING WILL ADVANCE DIRECTIVE: None. Height is 6 feet 1 inch. Weight is 338 pounds. BMI is 45. HOME MEDICATIONS: 1. Oxycodone IR 30 mg t.i.d. p.r.n. 2. Glyburide and metformin 2.5/500, 2 tablets twice a day. 3. Toujeo SoloStar insulin 60 units daily. 4. Trulicity 1.5 mg subcutaneous weekly. 5. Coumadin 5 mg Thursday, , Thursday and Thursday and 6 mg Thursday, Thursday and Thursday. 6. Vitamin D2 50,000 units weekly. 7. Lasix 40 mg daily. 8. Lipitor 40 mg daily. 9. Effexor 75 mg daily. 10. Lyrica 75 mg twice a day. 11. Jardiance 10 mg twice a day. 12. K-Dur 20 mEq twice a day. 13. Clindamycin 300 mg three times a day. SOCIAL HISTORY: Positive for smoking, active smoking. Denies alcohol. Denies drug use. Denies communicable transmissible disease. OCCUPATIONAL HISTORY: Disabled. FAMILY HISTORY: Positive for diabetes and hypertension. PAST MEDICAL AND SURGICAL HISTORY: 1. History of chronic narcotic dependent pain syndrome. 2. History of type 1 insulin-requiring diabetes mellitus. 3. History of pulmonary embolism, history of hypovitaminosis D, history of dyslipidemia, history of diabetic neuropathy, history of depression, history of hypokalemia. Past medical history is also significant for hypertension, hyperlipidemia. Bilateral lower extremity venous stasis, history of diabetes mellitus, history of hearing deficit, history of degenerative joint disease, history of nicotine dependence, history of chronic obstructive pulmonary disease, history of sleep apnea, history of pulmonary embolism. The patient's past medical history is significant for anemia, history of Coumadin dependent, pulmonary embolism. The patient's past medical history is significant for elevated antithrombin III activity. 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 The patient's past medical history is significant for morbid obesity, history of multiple bilateral upper and lower lobe pulmonary embolism, history of nicotine addiction and dependence, history of right popliteal vein adherent hypoechoic thrombus, history of right popliteal vein DVT. The patient's past medical history is significant for bilateral ethmoid sinusitis, history of bilateral maxillary sinusitis, history of bilateral ostiomeatal complex soft tissue thickening and obstruction, history of narcotic dependent pain syndrome, history of pulmonary arterial hypertension with elevated right ventricular systolic pressure of 70 mmHg, history of moderate concentric left ventricular hypertrophy with left ventricle ejection fraction around 50%, history of severely dilated right ventricle, history of severely reduced right ventricular systolic function, history of severely dilated right atrium and mildly dilated left atrium, history of thickened tricuspid valve leaflet, history of [id number] tricuspid regurgitation with elevated right ventricular systolic pressure of 68 mmHg, history of pulmonary arterial hypertension, history of right ventricular dysfunction, history of bilateral lower extremity venous stasis, history of diastolic right-sided congestive heart failure with tricuspid regurgitation and elevated right ventricular systolic pressure, history of right bundle-branch block, history of improving left ventricle ejection fraction to 61% in 2016, history of decreasing right ventricular systolic pressure to 46 mmHg on echo of 2016, history of moderately dilated right ventricle, history of tricuspid regurgitation, history of intra-atrial septal aneurysm, history of left anterior hemiblock and bifascicular block, history of knee pain, history of deep venous thrombosis of the right lower extremity, history of bilateral multiple pulmonary embolism, history of tricuspid regurgitation, history of deconditioning, history of signing out against medical advise, family history of malignancy and deep venous thrombosis, history of noncompliance and signing out against medical advise, history of diabetes mellitus, history of right right popliteal vein DVT. The patient's past medical history is also significant for hyperlipidemia, history of depression. PHYSICAL EXAMINATION GENERAL: The patient is seen in stretcher #18 in the emergency room with the patient's son at bedside. The patient lying in the bed. VITAL SIGNS: T-max 99.1, heart rate is 107, 94, 98, and 91, blood pressure is 135/74, 127/65. The patient is seen lying in the bed. The patient is unable to sit up or stand up because of the scrotal and lower abdominal and perineal pain. HEAD: Examination normocephalic, atraumatic. HEENT: Examination shows pinkish pale conjunctivae. Dry oral mucosa. No neck rigidity. CHEST: Examination symmetrical. LUNGS: Examination shows bilateral upper lung field rhonchi bilaterally. CARDIOVASCULAR: S1 and S2, tachycardic rhythm. Positive systolic murmur, right second intercostal space, left sternal border, left second intercostal space. ABDOMEN: Morbidly obese. GENITALIA: Shows severely swollen and erythematous scrotum, unable to visualize penis, positive suprapubic and bilateral inguinal area and lower abdominal severe tenderness. Positive rebound tenderness. Positive scrotal tenderness. RECTAL: Examination could not be assessed. LOWER EXTREMITY: Shows positive varicose veins and chronic swelling of the lower extremity. VASCULAR: Examination palpable decreased pulses. MUSCULOSKELETAL: Examination shows a body mass index of 45. NEUROLOGIC: The patient is alert, awake, oriented x3, is able to move upper extremity without assistance. The patient has difficulty moving lower extremity because of the scrotal and groin area pain. PSYCHIATRIC: Examination positive for depression and anxiety. Gait examination could not be tested. Patient psychiatric examination is also negative for anxiety. Negative for suicidal, homicidal ideation. Negative for auditory visualization. DIAGNOSTICS: On 01/26/2017, WBC 20.2, hemoglobin/hematocrit 12.5, 37.6, platelet 207. Granulocytes 88% segs. PT/PTT 28.0, INR 2.5, PTT 38. VBG shows a pH of 7.31, pO2 30, pCO2 53, bicarb 27, saturation of 70%. Lactate 1.8. Sodium 129, potassium 4.1, chloride 97, CO2 23, anion gap 14, BUN 11, creatinine 0.8, GRF greater than 60, glucose 163, lactic acid 2.7, alk phos 155, triglyceride 241, cholesterol 175, LDL 88, HDL 23. Urine pH is 6.0, specific gravity less than 1.005, 30 protein, large blood, urine glucose greater than 1000, trace leukocyte esterase, many bacteria, blood type is A negative. The patient's CT of the abdomen and pelvis was done in the Emergency Room, which was reviewed. The patient's testicular ultrasound was done, which was reviewed. The patient was seen in the Emergency Room by the physician assistant to the dean. The patient was later on seen by the medical delivery driver. The patient's EKG, chest x-ray pending. IMPRESSION AND PLAN: 1. 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 2. Bilateral adenopathy with intrapelvic adenopathy. 3. Distended gallbladder with gallbladder sludge and possible cholelithiasis. 4. Hepatic steatosis and hepatomegaly and fatty infiltration of the liver. 5. Hepatosplenomegaly. 6. Super morbid obesity. 7. Questionable and possible perineal and scrotal abscess. 8. Bibasilar atelectasis, right more than the left. 9. Hepatic steatosis and fatty infiltration of the liver and hepatic splenomegaly. 10. Distended gallbladder with gallbladder sludge and probable gallstone. 11. Splenomegaly. 12. Bilateral perinephric stranding. 13. Fecal retention and fecal stasis. 14. Prostatic calcification. 15. Degenerative joint disease of the bones and the spine. 16. Inguinal and anterior pelvic soft tissue swelling extending into the scrotum with multiple foci of gas within the scrotum extending towards the perineum suggestive of necrotizing infection versus necrotizing fasciitis. 17. Fat containing ventral abdominal hernia. 18. Inguinal and intrapelvic lymphadenopathy. 19. Sepsis. 20. Fever. 21. Tachycardia. 22. Leukocytosis with granulocytosis. 23. Normocytic anemia. 24. Coumadin dependent, history of deep venous thrombosis and pulmonary embolism. 25. Insulin-requiring and dependent diabetes mellitus. 26. Hyponatremia. 27. Mild hypochloremia. 28. Hyperglycemia. 29. Lactic acidosis. 30. Hypertriglyceridemia, hypercholesteremia with decreased HDL. 31. Proteinuria, glycosuria, hematuria, pyuria and bacteriuria. 32. A negative blood type. 33. Nicotine addiction and dependence. 34. History of chronic narcotic dependent pain syndrome. 35. Hypovitaminosis D. 36. History of depression. 37. Diabetic neuropathy. 38. Hypokalemia. PLAN: At this time, the patient is admitted to [place], the patient was seen by the medical delivery driver, Dr. Carrera. The patient has been admitted to ICU. The patient has been ordered C-reactive protein. Urine drug screen and hemoglobin A1c has been ordered. The patient will be ordered an ultrasound of the abdomen. Actigall will be started, MiraLax will be started, repeat CMP, LFTs, magnesium has been ordered, thyroid panel, vitamin D level ordered, fructosamine, hemoglobin A1c, erythrocyte sedimentary rate, CBC, daily PT/PTT ordered. Blood and urine cultures ordered. CURRENT CONSULTATIONS: 1. Endocrinology. 2. Surgery. 3. Infectious Disease ordered. The patient has been ordered type and crossmatch. PRBC and FFP, procalcitonin level ordered. The patient is currently started on Mucomyst nebulizer with Xopenex nebulizer every 6 hours, Coreg 3.125 twice a day, Dilaudid 1 mg IV q. 4 hours p.r.n., Drisdol 50,000 units q. 7 days has been ordered. The patient's Effexor is resumed at 75 mg daily, Humalog medium dose sliding scale coverage a.c. and at bedtime. The patient is started NPH insulin 20 units with breakfast, 20 units with supper, Lipitor 40 mg daily reordered, Lyrica 75 mg twice a day ordered. The patient is on nicotine patch 21 mg daily, Protonix 40 mg daily, the patient is started on IV fluid replacement for sepsis at 30-35 mL per kg per hour. After the patient's fluid challenges are complete, the patient will be started on 0.9 normal saline at 125 mL an hour. The patient received vancomycin 1 g IV stat in the ER. The patient is put on Zofran 4 mg q. 6 p.r.n., the patient is also started on Zosyn 3.375 g IV q. 6. Chest x-ray PA and lateral ordered and EKG ordered. The patient is presently ordered n.p.o. diet. The patient is on SCDs, CHRISTIAN stockings. The patient has been ordered transfusion of FFP in anticipation for surgical intervention by surgery who have been consulted in the Emergency Room at present. The patient's further management at this time will be dependent upon the patient's clinical condition, hemodynamic status and as per response to therapeutic intervention and as per recommendation by all the physician involved in the care of the patient. Addendum to the impression 1. Possible right epididymitis with enlarged right epididymal head and heterogenous echogenicity hypoechoic cyst with increased vascular flow of the right epididymis consistent with right epididymitis with significant scrotal wall thickening and swelling. 2. Bilateral epididymal cyst with enlargement of the bilateral epididymal head with heterogenous echogenicity. 3. Uncontrolled diabetes mellitus. 4. Morbid obesity. 5. Active nicotine addiction and dependence. At present, the patient was seen in the Emergency Room. The patient is awaiting for a bed assignment. The patient was seen by the surgical team. The patient is in anticipation for surgical intervention tonight, which the patient is agreeable to proceed with. The patient's further management will be dependent upon the patient's clinical condition, hemodynamic status and as per the patient response to therapeutic intervention, as per the patient's diagnostic test results and as per recommendation by all the above physicians involved in the care of the patient. Dictated and electronically signed, not read. Signing off; Dakotah Cummins MD
[2017-01-27 07:15] LABS: BASO # 0.02 K/mm3 (0.0-2.0); BASO % 0.1 % (0.0-3.0); EOS # 0.1 (0.0-0.7); EOS % 0.3 % (1.5-5.0); GRAN # 16.41 (1.4-6.5); GRAN % 84.9 % (50.0-68.0); HEMATOCRIT 34.2 % (42.0-52.0); LYMPH # 1.4 (1.2-3.4); LYMPH % 7.2 % (22.0-35.0); MEAN CELL VOLUME 89.3 fl (80.0-105.0); MEAN CORPUSCULAR HEMOGLOBIN 28.2 pg (25.0-35.0); MEAN CORPUSCULAR HGB CONC 31.6 g/dl (31.0-37.0); MONO # 1.4 (0.1-0.6); MONO % 7.5 % (1.0-6.0); RED CELL DISTRIBUTION WIDTH 16.6 % (11.5-14.5); WHITE BLOOD COUNT 19.3 10^3/ul (4.5-11.0)
--- NOTE | 2017-01-27 07:32 | CON ---
DATE: ENDOCRINOLOGY CONSULTATION LOCATION: ICU 128, room 4. 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 PAST MEDICAL HISTORY: History of type 2 insulin-requiring diabetes, currently on a combination of both oral hypoglycemic therapy and insulin therapy as given. He is currently on Jardiance at 10 mg b.i.d. with metformin/glyburide combination of 2.5/500 given as 2 tabs b.i.d. He is also on Trulicity given as 1.5 mg once a week with Toujeo long-acting insulin given as 60 units once daily. History of morbid obesity with concomitant hypertension and dyslipidemia. History of pulmonary embolism, currently on warfarin anticoagulation therapy. History of generalized anxiety and depression. FAMILY HISTORY: Positive for diabetes, hypertension, and also breast and colon cancer with his parents. SOCIAL HISTORY: The patient admits to nicotine dependence over 30 years. He has a supportive family, otherwise. REVIEW OF SYSTEMS: Admits to generalized body weakness with easy fatigability and tiredness and suboptimal energy level. Also admits to episodic bouts of dizziness and lightheadedness with bifrontal headaches. No chest pains, palpitations, or PNDs. His oral intake has been variable with nausea, dyspepsia, and vague upper abdominal pains. Also admits to sudden swelling in the scrotal and perirectal areas and also in the gluteal areas as noted. PHYSICAL EXAMINATION: GENERAL: This is an obese male in no apparent distress. VITAL SIGNS: Blood pressure of 150/90, pulse of 70 beats per minute and regular, temperature 99, respirations 20. Height is 6 feet 1 inch, weight is 338 pounds. HEENT: Head is normocephalic. Eyes anicteric with pink conjunctivae. Funduscopy is not possible at this time. Ears, nose and throat otherwise normal. NECK: Supple. Thyroid gland is normal in size. No carotid bruits or any cervical adenopathy. CARDIOPULMONARY: Has some adynamic precordium. S1 and S2 are rapid and regular. LUNGS: Clear to auscultation. ABDOMEN: Obese, soft with positive bowel sounds. EXTREMITIES: No peripheral edema. Pulses are +2 bilaterally. The above-mentioned gluteal and scrotal areas have been noted as per the historical data. LABORATORY DATA: The initial CBC showed a WBC of 20.2, hemoglobin of 12.5, hematocrit of 37.6, MCV 87, platelets 207. Chemistry showed a BUN of 11, sodium 129, potassium 4.1, chloride 97, CO2 of 23, glucose 163, and creatinine 0.8. ASSESSMENT: This is a 41-year-old male with uncontrolled and decompensated type 2 insulin-requiring diabetes, presenting here with perirectal and scrotal abscesses with concomitant Dakota's gangrene and underwent incision and drainage procedure today as noted. PLAN OF MANAGEMENT: As discussed with the patient and staff. We will continue the current combination of NPH given twice daily and Humalog insulin given as a coverage scale. If hyperglycemic levels supervene by tomorrow, we will modify his dosing regimen to a more physiologic insulin drug combination with Levemir at bedtime and Humalog given before each meal t.i.d. as indicated. We will obtain a hemoglobin A1c to confirm his prior glycemic control and baseline thyroid function studies will be ordered. We will follow and advise accordingly. Kirti Mc MD
[2017-01-27 07:35] LABS: INR 2.4 (0.93-1.08); PARTIAL THROMBOPLASTIN TIME 38.6 Seconds (25.1-36.5)
[2017-01-27 07:38] LABS: ALB/GLOB RATIO 0.9 (1.1-1.8); ALKALINE PHOSPHATASE 145 U/L (38-126); ALT/SGPT 30 U/L (7-56); AST/SGOT 30 U/L (17-59); BILIRUBIN,DIRECT 0.8 mg/dL (0.0-0.4); BILIRUBIN,TOTAL 0.8 mg/dL (0.2-1.3); BLOOD UREA NITROGEN 9 mg/dL (7-21); CALCIUM 8.5 mg/dL (8.4-10.5); CARBON DIOXIDE 24 mmol/L (21-33); CHLORIDE 101 mmol/L (98-107); CHOLESTEROL 161 mg/dL (130-200); GFR AFRICAN-AMERICAN > 60; GLUCOSE,RANDOM 120 mg/dL (70-110); MAGNESIUM 1.5 mg/dL (1.7-2.2); POTASSIUM 4.1 mmol/L (3.6-5.0); SODIUM 134 mmol/L (132-148); TOTAL PROTEIN 6.9 g/dL (5.8-8.3)
--- NOTE | 2017-01-27 08:25 | RAD ---
HISTORY: Sepsis Patient COMPARISON: 09/06/2014 FINDINGS: LUNGS: No active pulmonary disease. PLEURA: No significant pleural effusion identified, no pneumothorax apparent. CARDIOVASCULAR: Mild cardiomegaly OSSEOUS STRUCTURES: No significant abnormalities. VISUALIZED UPPER ABDOMEN: Normal. OTHER FINDINGS: None. IMPRESSION: No active disease.
--- NOTE | 2017-01-27 08:45 | CP.PCM.PN ---
Subjective - Date & Time of Evaluation Date of Evaluation: 01/27/17 Time of Evaluation: 08:43 - Subjective Subjective: Surgery Pt s&e. Pt underwent surgery yesterday. Tolerated it well. C/O pain. Denies F/C/ N/V/D/CP/SOB. Objective - Vital Signs/Intake and Output Vital Signs (last 24 hours): Temp Pulse Resp BP Pulse Ox 99 F 82 20 101/54 L 98 01/27/17 04:44 01/27/17 04:40 01/27/17 04:40 01/27/17 04:01 01/27/17 04:40 Intake and Output: 01/27/17 01/27/17 06:59 18:59 Intake Total 1650 Output Total 1200 Balance 450 - Medications Medications: Current Medications Acetylcysteine (Acetylcysteine 20%) 4 ml IH [id number] [facility] Last Admin: 01/27/17 07:07 Dose: 4 ml Atorvastatin Calcium (Lipitor) 40 mg PO DAILY [facility] Carvedilol (Coreg) 3.125 mg PO BID [facility] Last Admin: 01/27/17 00:39 Dose: 3.125 mg Docusate Sodium (Colace) 100 mg PO DAILY [facility] Ergocalciferol (Drisdol 50,000 Intl Units Cap) 1 cap PO Q7D [facility] Last Admin: 01/27/17 00:38 Dose: 1 cap Hydromorphone HCl (Dilaudid) 1 mg IVP Q3H PRN PRN Reason: Pain, moderate (4-7) Last Admin: 01/27/17 01:08 Dose: 1 mg Hydromorphone HCl (Dilaudid) 2 mg IVP Q3H PRN PRN Reason: Pain, severe (8-10) Meropenem 1 gm/ Dextrose 100 mls @ 100 mls/hr IVPB Q8 [facility] PRN Reason: Protocol Stop: 02/02/17 23:16 Last Admin: 01/27/17 05:07 Dose: 100 mls/hr Vancomycin HCl 1.5 gm/ Sodium (Chloride) 500 mls @ 250 mls/hr IVPB Q12H [facility] PRN Reason: Protocol Acetaminophen (Ofirmev) 1,000 mg in 100 mls @ 400 mls/hr IVPB Q6H [facility] Stop: 01/29/17 00:16 Last Admin: 01/27/17 00:39 Dose: 400 mls/hr Sodium Chloride (Sodium Chloride 0.9%) 1,000 mls @ 150 mls/hr IV .Q6H40M [facility] Last Admin: 01/27/17 01:03 Dose: 150 mls/hr Insulin Human Lispro (Humalog Med) 0 units SC ACHS [facility] PRN Reason: Protocol Last Admin: 01/27/17 08:23 Dose: Not Given Insulin Human NPH (Humulin N) 20 units SC ACB [facility] Insulin Human NPH (Humulin N) 20 units SC DAILY@1745 [facility] Levalbuterol HCl (Xopenex) 0.63 mg IH [id number] [facility] Last Admin: 01/27/17 07:07 Dose: 0.63 mg Nicotine (Nicoderm Cq) 1 patch TD DAILY PRN PRN Reason: URGE TO SMOKE Ondansetron HCl (Zofran Inj) 4 mg IVP Q6H PRN PRN Reason: Nausea/Vomiting Oxycodone HCl (Oxycodone Immediate Release Tab) 10 mg PO Q6H PRN PRN Reason: Pain, moderate (4-7) Pantoprazole Sodium (Protonix Inj) 40 mg IVP DAILY [facility] Polyethylene Glycol (Miralax) 17 gm PO BID [facility] Pregabalin (Lyrica) 75 mg PO BID [facility] Ursodiol (Actigall) 300 mg PO BID [facility] Venlafaxine HCl (Effexor Xr) 75 mg PO DAILY [facility] - Labs Labs: 01/27/17 06:30 01/27/17 06:30 PT 26.9 SECONDS (9.4-12.5) H 01/27/17 06:30 INR 2.40 (0.93-1.08) H 01/27/17 06:30 APTT 38.6 Seconds (25.1-36.5) H 01/27/17 06:30 - Constitutional Appears: In Acute Distress - Head Exam Head Exam: ATRAUMATIC, NORMAL INSPECTION, NORMOCEPHALIC - Eye Exam Eye Exam: EOMI, Normal appearance, PERRL Pupil Exam: NORMAL ACCOMODATION, PERRL - ENT Exam ENT Exam: Mucous Membranes Moist, Normal Exam - Neck Exam Neck Exam: Full ROM, Normal Inspection. absent: Lymphadenopathy - Respiratory Exam Respiratory Exam: Clear to Ausculation Bilateral, NORMAL BREATHING PATTERN - Cardiovascular Exam Cardiovascular Exam: REGULAR RHYTHM, +S1, +S2. absent: Murmur - GI/Abdominal Exam GI & Abdominal Exam: Soft, Normal Bowel Sounds. absent: Tenderness - Rectal Exam Rectal Exam: absent: NORMAL INSPECTION - Exam Exam: Scrotal Swelling, Testicular Tenderness. absent: NORMAL INSPECTION, Uretheral Discharge External exam: Erythema, Swelling Additional comments: jock strap , dressing in place. saturated. - Extremities Exam Extremities Exam: Full ROM, Normal Capillary Refill, Normal Inspection. absent : Joint Swelling, Pedal Edema - Back Exam Back Exam: NORMAL INSPECTION - Neurological Exam Neurological Exam: Alert, Awake, CN II-XII Intact, Normal Gait, Oriented x3 - Psychiatric Exam Psychiatric exam: Normal Affect, Normal Mood - Skin Skin Exam: Dry, Intact, Normal Color, Warm Assessment and Plan - Assessment and Plan (Free Text) Assessment: sp Incision and drainage of perirectal abscess POD 1 -MOnitor Labs/ VS -Urology on board. -ABX -Pain control -Medical management Will DW Dr. Galeana
[2017-01-27] MEDS: Insulin Human NPH 1 UNITS/0.01 ML SC SCH (08:47)
[2017-01-27] MEDS: HYDROmorphone 2 mg/ml ISec IVP PRN ×3 (08:56→23:48)
[2017-01-27 09:06] LABS: FREE T4 1.77 ng/dL (0.78-2.19); T4 7.8 ug/dL (5.5-11.0)
[2017-01-27 09:20] LABS: THYROID STIMULATING HORMONE 1.08 mIU/mL (0.46-4.68)
--- NOTE | 2017-01-27 09:31 | US ---
HISTORY: Leg pain and swelling. Evaluate for DVT PHYSICIAN(S): Fidel Manzano MD. TECHNIQUE: Duplex sonography and color-flow Doppler with graded compression were used to evaluate the deep venous systems of both lower extremities. The exam is very limited by body habitus and edema. The tibial veins are not adequately seen FINDINGS: The visualized deep venous systems of both lower extremities are sonographically normal and compressible. Normal wave forms and augmentation are seen. There is no sonographic evidence for deep venous thrombosis in the visualized segments of both lower extremities. IMPRESSION: No sonographic evidence for deep venous thrombosis in the visualized segments of both lower extremities. Limited study.
[2017-01-27] MEDS: Vancomycin 1.5 GM in Sodium Chloride 0.9% 500 ML IVPB SCH ×2 (09:39→20:51)
[2017-01-27] MEDS: Venlafaxine 75 mg ER Cap PO SCH (09:40)
[2017-01-27] MEDS: POLYETHYLENE GLYCOL 3350 17 GM/Dose PACKET PO SCH ×2 (09:40→18:28)
--- NOTE | 2017-01-27 09:53 | CP.PCM.PN ---
Subjective - Date & Time of Evaluation Date of Evaluation: 01/27/17 Time of Evaluation: 08:00 - Subjective Subjective: Critical Care Progress Note Patient seen and examined, reports to be doing well, no major complaints. POD #1 , perirectal abscess drainage in the OR by surgery. Objective - Vital Signs/Intake and Output Vital Signs (last 24 hours): Temp Pulse Resp BP Pulse Ox 99 F 82 20 101/54 L 98 01/27/17 04:44 01/27/17 04:40 01/27/17 04:40 01/27/17 04:01 01/27/17 04:40 Intake and Output: 01/27/17 01/27/17 06:59 18:59 Intake Total 1650 Output Total 1200 Balance 450 - Medications Medications: Current Medications Acetylcysteine (Acetylcysteine 20%) 4 ml IH [id number] [facility] Last Admin: 01/27/17 07:07 Dose: 4 ml Atorvastatin Calcium (Lipitor) 40 mg PO DAILY [facility] Carvedilol (Coreg) 3.125 mg PO BID [facility] Last Admin: 01/27/17 00:39 Dose: 3.125 mg Docusate Sodium (Colace) 100 mg PO DAILY [facility] Ergocalciferol (Drisdol 50,000 Intl Units Cap) 1 cap PO Q7D [facility] Last Admin: 01/27/17 00:38 Dose: 1 cap Hydromorphone HCl (Dilaudid) 1 mg IVP Q3H PRN PRN Reason: Pain, moderate (4-7) Last Admin: 01/27/17 01:08 Dose: 1 mg Hydromorphone HCl (Dilaudid) 2 mg IVP Q3H PRN PRN Reason: Pain, severe (8-10) Last Admin: 01/27/17 08:56 Dose: 2 mg Meropenem 1 gm/ Dextrose 100 mls @ 100 mls/hr IVPB Q8 [facility] PRN Reason: Protocol Stop: 02/02/17 23:16 Last Admin: 01/27/17 05:07 Dose: 100 mls/hr Vancomycin HCl 1.5 gm/ Sodium (Chloride) 500 mls @ 250 mls/hr IVPB Q12H JUN PRN Reason: Protocol Acetaminophen (Ofirmev) 1,000 mg in 100 mls @ 400 mls/hr IVPB Q6H [facility] Stop: 01/29/17 00:16 Last Admin: 01/27/17 00:39 Dose: 400 mls/hr Sodium Chloride (Sodium Chloride 0.9%) 1,000 mls @ 150 mls/hr IV .Q6H40M [facility] Last Admin: 01/27/17 01:03 Dose: 150 mls/hr Insulin Human Lispro (Humalog Med) 0 units SC ACHS [facility] PRN Reason: Protocol Last Admin: 01/27/17 08:23 Dose: Not Given Insulin Human NPH (Humulin N) 20 units SC ACB [facility] Last Admin: 01/27/17 08:47 Dose: 20 units Insulin Human NPH (Humulin N) 20 units SC DAILY@1745 [facility] Levalbuterol HCl (Xopenex) 0.63 mg IH [id number] [facility] Last Admin: 01/27/17 07:07 Dose: 0.63 mg Nicotine (Nicoderm Cq) 1 patch TD DAILY PRN PRN Reason: URGE TO SMOKE Ondansetron HCl (Zofran Inj) 4 mg IVP Q6H PRN PRN Reason: Nausea/Vomiting Oxycodone HCl (Oxycodone Immediate Release Tab) 10 mg PO Q6H PRN PRN Reason: Pain, moderate (4-7) Pantoprazole Sodium (Protonix Inj) 40 mg IVP DAILY [facility] Polyethylene Glycol (Miralax) 17 gm PO BID [facility] Pregabalin (Lyrica) 75 mg PO BID [facility] Ursodiol (Actigall) 300 mg PO BID [facility] Venlafaxine HCl (Effexor Xr) 75 mg PO DAILY [facility] - Labs Labs: 01/27/17 06:30 01/27/17 06:30 PT 26.9 SECONDS (9.4-12.5) H 01/27/17 06:30 INR 2.40 (0.93-1.08) H 01/27/17 06:30 APTT 38.6 Seconds (25.1-36.5) H 01/27/17 06:30 - Constitutional Appears: Well, No Acute Distress - Head Exam Head Exam: NORMAL INSPECTION - Eye Exam Eye Exam: Normal appearance - ENT Exam ENT Exam: Mucous Membranes Moist - Respiratory Exam Respiratory Exam: Clear to Ausculation Bilateral, NORMAL BREATHING PATTERN - Cardiovascular Exam Cardiovascular Exam: REGULAR RHYTHM, +S1, +S2 - GI/Abdominal Exam GI & Abdominal Exam: Soft, Normal Bowel Sounds - Exam Additional comments: dressing over perianal region - Neurological Exam Neurological Exam: Alert, Awake, Oriented x3 Assessment and Plan - Assessment and Plan (Free Text) Assessment: 41yo male s/p POD#1 perianal abscess drainage Perirectal Abscess s/p drainage DM Hx of PE/DVT on A/C Obesity HTN - currently afebrile, HD stable, comfortable on room air, sat 99% - tolerated surgical procedure well, surgery following Recommend: - supp o2 as needed - antibiotics as per ID, follow up ID - resume BP meds - IVF hydration - Pain control - follow up surgery - FS control - follow up endocrinology - repeat DVT study negative, A/C as per primary team - Gi ppx - Stable
[2017-01-27] MEDS ORDERED: Vancomycin 1gm in NS 250ml 1 GM/250 ML BAG IVPB SCH (10:00)
--- NOTE | 2017-01-27 10:14 | US ---
HISTORY: HEPATOSPLENOMEAGLY COMPARISON: None. TECHNIQUE: Sonographic evaluation of the abdomen. FINDINGS: LIVER: Measures 26.4 cm. Diffusely increased echogenicity of the liver parenchyma. Consistent with fatty infiltration GALLBLADDER: No cholelithiasis. Echogenic sludge. No mural thickening or pericholecystic fluid. Negative sonographic Orellana sign. COMMON BILE DUCT: Measures 7 mm. No stones. No dilatation. PANCREAS: Unremarkable as visualized. No mass. No ductal dilatation. RIGHT KIDNEY: Measures 14.0cm. Normal echogenicity. No calculus, mass, or hydronephrosis. LEFT KIDNEY: Measures 13.8cm. Normal echogenicity. No calculus, mass, or hydronephrosis. SPLEEN: 17.7 cm. This is enlarged. No focal mass. AORTA: No aneurysmal dilatation. IVC: Unremarkable. OTHER FINDINGS: None. IMPRESSION: Hepatosplenomegaly. Gallbladder sludge without evidence of cholelithiasis or cholecystitis. Otherwise unremarkable.
--- NOTE | 2017-01-27 10:53 | CARD ---
APPROVED REPORT EKG Measurement Heart [id number] <Conclusion> Normal sinus rhythm Right bundle branch block Abnormal ECG
[2017-01-27] MEDS: Magnesium Sulfate 2 GM in Sodium Chloride 0.9% 100 ML IVPB SCH ×2 (11:21→13:30)
--- NOTE | 2017-01-27 14:14 | PN ---
DATE: 01/27/2017 LOCATION: The patient is seen in room ICU bed 2. SUBJECTIVE: The patient is seen lying in the bed. The patient underwent emergency surgery last night. The patient is postoperative day number 1. The patient is lying in the bed. The patient is still complaining of pain in the scrotum and the lower abdominal area. PHYSICAL EXAMINATION: VITAL SIGNS: T-max is 99. Telemetry shows heart rate 70s and 80s and initial heart rate was 90s and 100s. Blood pressure in the last 12 to 24 hours is 115/47, 101/54, 118/56, 127/51, 161/83 and 179/88, it does go up the stairs. Respirations of 20 and O2 saturation is 97% to 98%. INTAKE AND OUTPUT: Intake of 1550 and output of 1220. HEENT: Head examination is normocephalic and atraumatic. HEENT examination shows pinkish pale conjunctivae. Dry oral mucosa. No neck rigidity. RESPIRATORY: Chest examination symmetrical. Lungs examination shows no rales, crackles or wheezing. Positive rhonchi bilaterally. CARDIOVASCULAR: Examination shows S1 and S2, regular rhythm. GASTROINTESTINAL: Abdomen is protuberant and obese. Positive suprapubic and lower abdominal wall tenderness. GENITOURINARY: Positive scrotal dressing noted. Positive Nava catheter noted. Positive erythema and swelling of the scrotum noted. EXTREMITIES: Lower extremity shows positive swelling and positive varicose veins. MUSCULOSKELETAL: Examination shows a body mass index of 45. NEUROLOGIC: The patient is alert, awake, and oriented x3. Neurologically, the patient is awake and responsive. Gait examination could not be tested. DIAGNOSTIC DATA: On 01/27/2017, WBC count of 19.3 and 19.4, hemoglobin and hematocrit of 10.8 and 34.2 and 11.9 and 36.4, and platelet of 201,000 to 205,000. Granulocytes of 86 to 87. ESR is 98 which is high. PT of 26.9, INR of 2.4, and PTT 38.6. Sodium of 134, potassium of 4.1, chloride of 101, CO2 of 24, anion gap of 13, BUN of 9, and creatinine of 0.8. GFR is greater than 60. Point of contact glucose of 120, 120 and 127. Lactic acid is 1.0, magnesium is 1.5, total direct bilirubin is 0.8, and alkaline phosphatase of 145. Triglyceride of 255, cholesterol of 161, HDL is low as 24, and LDL of 83. Thyroid panel is within normal limit. Urinalysis noted. Urine drug screen is positive for benzos and positive for opiates. Microbiology cultures pending. Blood bank; the patient received 2 units of FFP yesterday. Chest x-ray was reviewed. Venous Doppler and abdominal ultrasound was reviewed. IMPRESSION AND PLAN: 1. Status post incision and drainage of perirectal abscess. 2. Necrotizing fasciitis. 3. Severe scrotal wall thickening and swelling. 4. Right epididymitis with increased vascular flow. 5. Bilateral epididymal cyst with enlargement of the bilateral epididymal heads heterogenous echogenicity 6. Enlarged right epididymal head and with heterogenous echogenicity with hypoechoic cyst. 7. Right epididymitis. 8. Fatty infiltration of the liver with hepatic steatosis. 9. Hepatosplenomegaly. 10. Gallbladder sludge without cholelithiasis an d cholecystitis. 11. Mild cardiomegaly. 12. Right bundle-branch block. 13. Nicotine addiction and dependence. 14. Narcotic dependent pain syndrome. 15. Multiple perineal scrotal abscess. 16. Sepsis. 17. Insulin-requiring diabetes mellitus. 18. Low grade fever. 19. Hypotension and history of hypertension. 20. Leukocytosis with granulocytosis. 21. Normocytic anemia. 22. Elevated erythrocyte sedimentation rate of 98. 23. 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 24. Hyperglycemia. 25. Hyponatremia. 26. Hypomagnesemia. 27. Elevated alkaline phosphatase, etiology undetermined. 28. Hypertriglyceridemia and hypercholesteremia with decreased HDL. 29. Lactic acidosis. 30. Proteinuria, glycosuria and microscopic hematuria, and bacteriuria 31. Super morbid obesity with body mass index of 45. 32. Perirectal abscess status post incision and drainage postop day number 1. 33. Uncontrolled decompensated type 2 insulin-requiring diabetes mellitus. 34. 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 35. 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 36. Status post incision and drainage washout and packing of the perirectal and scrotal abscess. 1. 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 2. Bilateral adenopathy with intrapelvic adenopathy. 3. Distended gallbladder with gallbladder sludge and possible cholelithiasis. 4. Hepatic steatosis and hepatomegaly and fatty infiltration of the liver. 5. Hepatosplenomegaly. 6. Super morbid obesity. 7. Questionable and possible perineal and scrotal abscess. 8. Bibasilar atelectasis, right more than the left. 9. Hepatic steatosis and fatty infiltration of the liver and hepatic splenomegaly. 10. Distended gallbladder with gallbladder sludge and probable gallstone. 11. Splenomegaly. 12. Bilateral perinephric stranding. 13. Fecal retention and fecal stasis. 14. Prostatic calcification. 15. Degenerative joint disease of the bones and the spine. 16. Inguinal and anterior pelvic soft tissue swelling extending into the scrotum with multiple foci of gas within the scrotum extending towards the perineum suggestive of necrotizing infection versus necrotizing fasciitis. 17. Fat containing ventral abdominal hernia. 18. Inguinal and intrapelvic lymphadenopathy. 19. Sepsis. 20. Fever. 21. Tachycardia. 22. Leukocytosis with granulocytosis. 23. Normocytic anemia. 24. Coumadin dependent, history of deep venous thrombosis and pulmonary embolism. 25. Insulin-requiring and dependent diabetes mellitus. 26. Hyponatremia. 27. Mild hypochloremia. 28. Hyperglycemia. 29. Lactic acidosis. 30. Hypertriglyceridemia, hypercholesteremia with decreased HDL. 31. Proteinuria, glycosuria, hematuria, pyuria and bacteriuria. 32. A negative blood type. 33. Nicotine addiction and dependence. 34. History of chronic narcotic dependent pain syndrome. 35. Hypovitaminosis D. 36. History of depression. 37. Diabetic neuropathy. 38. Hypokalemia. PLAN: At this time, the patient is to be continued in ICU. The patient has been ordered serial labs. The patient's hepatitis panel, repeat labs, repeat LFT, thyroid panel, CBC, and PTT is pending. Blood and urine cultures and wound cultures are pending. Current consultation, Endocrinology, Surgery, Urology, and Infectious Disease. Procalcitonin level is pending. The patient is on Tylenol IV 1000 mg every 6 hours, Mucomyst nebulizer with Xopenex nebulizer every 6 hours round the clock. The patient is on Actigall 300 twice a day, Colace 100 mg daily, Coreg 3.125 mg twice a day, and Dilaudid 1 mg IV q. 3 hours., p.r.n. and Tylenol. The patient is on Drisdol 50,000 weekly, Effexor 75 mg daily, Humalog medium dose sliding scale coverage a.c. and at bedtime. NPH 20 units with breakfast and 20 units with supper, Lipitor 40 mg daily Lyrica 75 mg twice a day, magnesium sulfate riders x2 ordered, meropenem 1 g IV q. 8 hours., MiraLax 17 g twice a day, and nicotine patch 21 mg daily. The patient is on oxycodone 10 mg q. 6 hours. p.r.n. and Protonix 40 mg IV daily. The patient is on IV fluid 0.9 normal saline at 150 mL an hour. The patient is on vancomycin 1.5 grams IV q. 12 hours. and Zofran 4 mg IV q. 6 hours. The patient has been ordered SCDs, CHRISTIAN stockings. At present, the patient's further management will be dependent upon the patient's clinical condition, hemodynamic status and as per the patient response to therapeutic intervention as per the patient's diagnostic test results and as per recommendation by all the physician involved in the care of the patient. Time spent in the entire management more than 35 minutes. Dictated and electronically signed, not read. Signing off Dakotah Cummins MD Dakotah Cummins MD MTDD
--- NOTE | 2017-01-27 16:48 | PCM.URO ---
Urology Progress Note - Objective Lab Studies: Reviewed (dx: sepsis, plans: see previously dictated consult and op notes, no gu change, maintain fernandes and local wound care, will follow along , full note from today to be dictated) Lab Results Last 24 Hours: Laboratory Results - last 24 hr 01/26/17 01/26/17 01/26/17 20:49 21:10 21:17 WBC RBC Hgb Hct MCV MCH MCHC RDW Plt Count MPV Gran % Lymph % (Auto) Winn % (Auto) Eos % (Auto) Baso % (Auto) Gran # Lymph # Winn # Eos # Baso # PT INR APTT pO2 30 VBG pH 7.31 L VBG pCO2 53.0 VBG HCO3 26.7 VBG Total CO2 28.3 H VBG O2 Sat (Calc) 69.8 H VBG Base Excess -0.4 L VBG Potassium 3.5 L Sodium 129.0 L Chloride 96.0 L Glucose 95 Lactate 1.8 FiO2 21.0 Potassium Carbon Dioxide Anion Gap BUN Creatinine Est GFR ( Amer) Est GFR (Non-Af Amer) POC Glucose (mg/dL) Random Glucose Hemoglobin A1c Lactic Acid Calcium Magnesium Total Bilirubin Direct Bilirubin AST ALT Alkaline Phosphatase C-React Prot High Sens Total Protein Albumin Globulin Albumin/Globulin Ratio Triglycerides Cholesterol LDL Cholesterol Direct HDL Cholesterol 25-OH Vitamin D Total Free T4 Thyroxine (T4) TSH 3rd Generation Venous Blood Potassium 3.5 L Urine Color Yellow Urine Appearance Clear Urine pH 6.0 Ur Specific [place] <= 1.005 Urine Protein 30 H Urine Glucose (UA) >=1000 Urine Ketones Negative Urine Blood Large H Urine Nitrate Negative Urine Bilirubin Negative Urine Urobilinogen 0.2 Ur Leukocyte Esterase Trace H Urine RBC 5 - 10 Urine WBC 2 - 5 Ur Epithelial Cells 1 - 3 Amorphous Sediment Small Urine Bacteria Many Urine Opiates Screen Urine Methadone Screen Ur Barbiturates Screen Ur Phencyclidine Scrn Ur Amphetamines Screen U Benzodiazepines Scrn U Oth Cocaine Metabols U Cannabinoids Screen Hepatitis A IgM Ab Hep Bs Antigen Hep B Core IgM Ab Hepatitis C Antibody Blood Type A NEGATIVE Blood Type Confirm Antibody Screen Negative Crossmatch See Detail BBK History Checked No verified bt 01/26/17 01/27/17 01/27/17 21:56 00:20 00:20 WBC RBC Hgb Hct MCV MCH MCHC RDW Plt Count MPV Gran % Lymph % (Auto) Winn % (Auto) Eos % (Auto) Baso % (Auto) Gran # Lymph # Winn # Eos # Baso # PT INR APTT pO2 VBG pH VBG pCO2 VBG HCO3 VBG Total CO2 VBG O2 Sat (Calc) VBG Base Excess VBG Potassium Sodium Chloride Glucose Lactate FiO2 Potassium Carbon Dioxide Anion Gap BUN Creatinine Est GFR ( Amer) Est GFR (Non-Af Amer) POC Glucose (mg/dL) Random Glucose Hemoglobin A1c 6.0 Lactic Acid Calcium Magnesium Total Bilirubin Direct Bilirubin AST ALT Alkaline Phosphatase C-React Prot High Sens Total Protein Albumin Globulin Albumin/Globulin Ratio Triglycerides Cholesterol LDL Cholesterol Direct HDL Cholesterol 25-OH Vitamin D Total Free T4 Thyroxine (T4) TSH 3rd Generation Venous Blood Potassium Urine Color Urine Appearance Urine pH Ur Specific [place] Urine Protein Urine Glucose (UA) Urine Ketones Urine Blood Urine Nitrate Urine Bilirubin Urine Urobilinogen Ur Leukocyte Esterase Urine RBC Urine WBC Ur Epithelial Cells Amorphous Sediment Urine Bacteria Urine Opiates Screen Urine Methadone Screen Ur Barbiturates Screen Ur Phencyclidine Scrn Ur Amphetamines Screen U Benzodiazepines Scrn U Oth Cocaine Metabols U Cannabinoids Screen Hepatitis A IgM Ab Negative Hep Bs Antigen Negative Hep B Core IgM Ab Negative Hepatitis C Antibody Negative Blood Type Blood Type Confirm A NEGATIVE Antibody Screen Crossmatch BBK History Checked 01/27/17 01/27/17 01/27/17 00:20 00:46 01:00 WBC 19.4 H RBC 4.12 Hgb 11.9 L Hct 36.4 L MCV 88.3 MCH 28.9 MCHC 32.7 RDW 16.4 H Plt Count 205 MPV 9.8 Gran % 87.4 H Lymph % (Auto) 6.1 L Winn % (Auto) 6.2 H Eos % (Auto) 0.2 L Baso % (Auto) 0.1 Gran # 16.98 H Lymph # 1.2 Winn # 1.2 H Eos # 0.0 Baso # 0.02 PT INR APTT pO2 VBG pH VBG pCO2 VBG HCO3 VBG Total CO2 VBG O2 Sat (Calc) VBG Base Excess VBG Potassium Sodium Chloride Glucose Lactate FiO2 Potassium Carbon Dioxide Anion Gap BUN Creatinine Est GFR ( Amer) Est GFR (Non-Af Amer) POC Glucose (mg/dL) 120 H Random Glucose Hemoglobin A1c Lactic Acid Calcium Magnesium Total Bilirubin Direct Bilirubin AST ALT Alkaline Phosphatase C-React Prot High Sens > 15.00 H Total Protein Albumin Globulin Albumin/Globulin Ratio Triglycerides Cholesterol LDL Cholesterol Direct HDL Cholesterol 25-OH Vitamin D Total Free T4 1.77 Thyroxine (T4) 7.8 TSH 3rd Generation 1.08 Venous Blood Potassium Urine Color Urine Appearance Urine pH Ur Specific [place] Urine Protein Urine Glucose (UA) Urine Ketones Urine Blood Urine Nitrate Urine Bilirubin Urine Urobilinogen Ur Leukocyte Esterase Urine RBC Urine WBC Ur Epithelial Cells Amorphous Sediment Urine Bacteria Urine Opiates Screen Urine Methadone Screen Ur Barbiturates Screen Ur Phencyclidine Scrn Ur Amphetamines Screen U Benzodiazepines Scrn U Oth Cocaine Metabols U Cannabinoids Screen Hepatitis A IgM Ab Hep Bs Antigen Hep B Core IgM Ab Hepatitis C Antibody Blood Type Blood Type Confirm Antibody Screen Crossmatch BBK History Checked 01/27/17 01/27/17 01/27/17 06:30 06:30 06:30 WBC 19.3 H RBC 3.83 Hgb 10.8 L Hct 34.2 L MCV 89.3 MCH 28.2 MCHC 31.6 RDW 16.6 H Plt Count 201 MPV 10.0 Gran % 84.9 H Lymph % (Auto) 7.2 L Winn % (Auto) 7.5 H Eos % (Auto) 0.3 L Baso % (Auto) 0.1 Gran # 16.41 H Lymph # 1.4 Winn # 1.4 H Eos # 0.1 Baso # 0.02 PT INR APTT pO2 VBG pH VBG pCO2 VBG HCO3 VBG Total CO2 VBG O2 Sat (Calc) VBG Base Excess VBG Potassium Sodium 134 Chloride 101 Glucose Lactate FiO2 Potassium 4.1 Carbon Dioxide 24 Anion Gap 13 BUN 9 Creatinine 0.8 Est GFR ( Amer) > 60 Est GFR (Non-Af Amer) > 60 POC Glucose (mg/dL) Random Glucose 120 H Hemoglobin A1c 6.0 Lactic Acid Calcium 8.5 Magnesium 1.5 L Total Bilirubin 0.8 Direct Bilirubin 0.8 H AST 30 ALT 30 Alkaline Phosphatase 145 H C-React Prot High Sens Total Protein 6.9 Albumin 3.3 Globulin 3.6 Albumin/Globulin Ratio 0.9 L Triglycerides 255 H Cholesterol 161 LDL Cholesterol Direct 83 HDL Cholesterol 24 L 25-OH Vitamin D Total Free T4 Thyroxine (T4) TSH 3rd Generation Venous Blood Potassium Urine Color Urine Appearance Urine pH Ur Specific [place] Urine Protein Urine Glucose (UA) Urine Ketones Urine Blood Urine Nitrate Urine Bilirubin Urine Urobilinogen Ur Leukocyte Esterase Urine RBC Urine WBC Ur Epithelial Cells Amorphous Sediment Urine Bacteria Urine Opiates Screen Urine Methadone Screen Ur Barbiturates Screen Ur Phencyclidine Scrn Ur Amphetamines Screen U Benzodiazepines Scrn U Oth Cocaine Metabols U Cannabinoids Screen Hepatitis A IgM Ab Hep Bs Antigen Hep B Core IgM Ab Hepatitis C Antibody Blood Type Blood Type Confirm Antibody Screen Crossmatch BBK History Checked 01/27/17 01/27/17 01/27/17 06:30 06:30 06:57 WBC RBC Hgb Hct MCV MCH MCHC RDW Plt Count MPV Gran % Lymph % (Auto) Winn % (Auto) Eos % (Auto) Baso % (Auto) Gran # Lymph # Winn # Eos # Baso # PT 26.9 H INR 2.40 H APTT 38.6 H pO2 VBG pH VBG pCO2 VBG HCO3 VBG Total CO2 VBG O2 Sat (Calc) VBG Base Excess VBG Potassium Sodium Chloride Glucose Lactate FiO2 Potassium Carbon Dioxide Anion Gap BUN Creatinine Est GFR ( Amer) Est GFR (Non-Af Amer) POC Glucose (mg/dL) Random Glucose Hemoglobin A1c Lactic Acid Calcium Magnesium Total Bilirubin Direct Bilirubin AST ALT Alkaline Phosphatase C-React Prot High Sens Total Protein Albumin Globulin Albumin/Globulin Ratio Triglycerides Cholesterol LDL Cholesterol Direct HDL Cholesterol 25-OH Vitamin D Total 19.1 L Free T4 Thyroxine (T4) TSH 3rd Generation Venous Blood Potassium Urine Color Urine Appearance Urine pH Ur Specific [place] Urine Protein Urine Glucose (UA) Urine Ketones Urine Blood Urine Nitrate Urine Bilirubin Urine Urobilinogen Ur Leukocyte Esterase Urine RBC Urine WBC Ur Epithelial Cells Amorphous Sediment Urine Bacteria Urine Opiates Screen Positive H Urine Methadone Screen Negative Ur Barbiturates Screen Negative Ur Phencyclidine Scrn Negative Ur Amphetamines Screen Negative U Benzodiazepines Scrn Positive U Oth Cocaine Metabols Negative U Cannabinoids Screen Negative Hepatitis A IgM Ab Hep Bs Antigen Hep B Core IgM Ab Hepatitis C Antibody Blood Type Blood Type Confirm Antibody Screen Crossmatch BBK History Checked 01/27/17 01/27/17 01/27/17 08:05 09:00 11:24 WBC RBC Hgb Hct MCV MCH MCHC RDW Plt Count MPV Gran % Lymph % (Auto) Winn % (Auto) Eos % (Auto) Baso % (Auto) Gran # Lymph # Winn # Eos # Baso # PT INR APTT pO2 VBG pH VBG pCO2 VBG HCO3 VBG Total CO2 VBG O2 Sat (Calc) VBG Base Excess VBG Potassium Sodium Chloride Glucose Lactate FiO2 Potassium Carbon Dioxide Anion Gap BUN Creatinine Est GFR ( Amer) Est GFR (Non-Af Amer) POC Glucose (mg/dL) 127 H 148 H Random Glucose Hemoglobin A1c Lactic Acid 1.0 Calcium Magnesium Total Bilirubin Direct Bilirubin AST ALT Alkaline Phosphatase C-React Prot High Sens Total Protein Albumin Globulin Albumin/Globulin Ratio Triglycerides Cholesterol LDL Cholesterol Direct HDL Cholesterol 25-OH Vitamin D Total Free T4 Thyroxine (T4) TSH 3rd Generation Venous Blood Potassium Urine Color Urine Appearance Urine pH Ur Specific [place] Urine Protein Urine Glucose (UA) Urine Ketones Urine Blood Urine Nitrate Urine Bilirubin Urine Urobilinogen Ur Leukocyte Esterase Urine RBC Urine WBC Ur Epithelial Cells Amorphous Sediment Urine Bacteria Urine Opiates Screen Urine Methadone Screen Ur Barbiturates Screen Ur Phencyclidine Scrn Ur Amphetamines Screen U Benzodiazepines Scrn U Oth Cocaine Metabols U Cannabinoids Screen Hepatitis A IgM Ab Hep Bs Antigen Hep B Core IgM Ab Hepatitis C Antibody Blood Type Blood Type Confirm Antibody Screen Crossmatch BBK History Checked 01/27/17 15:05 WBC RBC Hgb Hct MCV MCH MCHC RDW Plt Count MPV Gran % Lymph % (Auto) Winn % (Auto) Eos % (Auto) Baso % (Auto) Gran # Lymph # Winn # Eos # Baso # PT INR APTT pO2 VBG pH VBG pCO2 VBG HCO3 VBG Total CO2 VBG O2 Sat (Calc) VBG Base Excess VBG Potassium Sodium Chloride Glucose Lactate FiO2 Potassium Carbon Dioxide Anion Gap BUN Creatinine Est GFR ( Amer) Est GFR (Non-Af Amer) POC Glucose (mg/dL) 176 H Random Glucose Hemoglobin A1c Lactic Acid Calcium Magnesium Total Bilirubin Direct Bilirubin AST ALT Alkaline Phosphatase C-React Prot High Sens Total Protein Albumin Globulin Albumin/Globulin Ratio Triglycerides Cholesterol LDL Cholesterol Direct HDL Cholesterol 25-OH Vitamin D Total Free T4 Thyroxine (T4) TSH 3rd Generation Venous Blood Potassium Urine Color Urine Appearance Urine pH Ur Specific [place] Urine Protein Urine Glucose (UA) Urine Ketones Urine Blood Urine Nitrate Urine Bilirubin Urine Urobilinogen Ur Leukocyte Esterase Urine RBC Urine WBC Ur Epithelial Cells Amorphous Sediment Urine Bacteria Urine Opiates Screen Urine Methadone Screen Ur Barbiturates Screen Ur Phencyclidine Scrn Ur Amphetamines Screen U Benzodiazepines Scrn U Oth Cocaine Metabols U Cannabinoids Screen Hepatitis A IgM Ab Hep Bs Antigen Hep B Core IgM Ab Hepatitis C Antibody Blood Type Blood Type Confirm Antibody Screen Crossmatch BBK History Checked Intake & Output: Intake & Output 01/26/17 01/27/17 01/27/17 18:59 06:59 18:59 Intake Total 1650 Output Total 1200 Balance 450 Weight 338 lb Intake: IV 1500 Bilateral Antecubital 1400 Oral 150 Output: Urine 1200 Urethral (Fernandes) 1200 Stool 0 Vital Signs: Vital Signs - 24 hr 01/26/17 01/26/17 01/26/17 21:13 21:31 21:40 Temperature Pulse Rate 91 H 90 102 H Respiratory 18 Rate Blood Pressure 135/85 O2 Sat by Pulse 99 Oximetry 01/26/17 01/26/17 01/26/17 21:50 22:00 22:08 Temperature 98.6 F Pulse Rate 94 H 93 H 94 H Respiratory 20 Rate Blood Pressure 127/65 O2 Sat by Pulse Oximetry 01/26/17 01/26/17 01/26/17 22:10 22:20 22:37 Temperature 98.6 F Pulse Rate 91 H 104 H 98 H Respiratory 19 Rate Blood Pressure 179/88 H O2 Sat by Pulse 95 Oximetry 01/26/17 01/26/17 01/27/17 23:42 23:50 00:00 Temperature Pulse Rate 104 H 103 H 103 H Respiratory 16 17 17 Rate Blood Pressure 161/83 H O2 Sat by Pulse 91 L 92 L 98 Oximetry 01/27/17 01/27/17 01/27/17 00:01 00:10 00:20 Temperature Pulse Rate 101 H 98 H 96 H Respiratory 11 L 13 Rate Blood Pressure 130/64 O2 Sat by Pulse 98 98 99 Oximetry 01/27/17 01/27/17 01/27/17 00:30 00:40 00:49 Temperature Pulse Rate 101 H 99 H 97 H Respiratory 17 18 Rate Blood Pressure 142/69 O2 Sat by Pulse 97 96 98 Oximetry 01/27/17 01/27/17 01/27/17 00:50 01:00 01:01 Temperature Pulse Rate 98 H 96 H 97 H Respiratory 14 14 25 H Rate Blood Pressure 127/51 L O2 Sat by Pulse 95 98 94 L Oximetry 01/27/17 01/27/17 01/27/17 01:10 01:20 01:30 Temperature Pulse Rate 94 H 93 H 90 Respiratory 20 21 Rate Blood Pressure O2 Sat by Pulse 93 L 94 L 95 Oximetry 01/27/17 01/27/17 01/27/17 01:40 01:50 02:00 Temperature Pulse Rate 89 87 87 Respiratory 18 16 19 Rate Blood Pressure O2 Sat by Pulse 95 95 94 L Oximetry 01/27/17 01/27/17 01/27/17 02:01 02:10 02:20 Temperature Pulse Rate 85 82 83 Respiratory 15 18 17 Rate Blood Pressure 118/56 L O2 Sat by Pulse 95 97 97 Oximetry 01/27/17 01/27/17 01/27/17 02:30 02:40 02:50 Temperature Pulse Rate 80 79 79 Respiratory 16 16 16 Rate Blood Pressure O2 Sat by Pulse 97 97 97 Oximetry 01/27/17 01/27/17 01/27/17 02:57 03:00 03:10 Temperature Pulse Rate 77 77 79 Respiratory 16 17 17 Rate Blood Pressure 114/46 L 115/47 L O2 Sat by Pulse 97 97 97 Oximetry 01/27/17 01/27/17 01/27/17 03:20 03:30 03:40 Temperature Pulse Rate 77 80 81 Respiratory 17 17 17 Rate Blood Pressure O2 Sat by Pulse 98 98 97 Oximetry 01/27/17 01/27/17 01/27/17 03:50 04:00 04:01 Temperature Pulse Rate 82 81 82 Respiratory 9 L 19 20 Rate Blood Pressure 101/54 L O2 Sat by Pulse 100 95 95 Oximetry 01/27/17 01/27/17 01/27/17 04:10 04:20 04:30 Temperature Pulse Rate 82 83 78 Respiratory 22 19 19 Rate Blood Pressure O2 Sat by Pulse 97 98 97 Oximetry 01/27/17 01/27/17 01/27/17 04:40 04:44 09:49 Temperature 99 F Pulse Rate 82 81 Respiratory 20 Rate Blood Pressure 106/47 L O2 Sat by Pulse 98 Oximetry 01/27/17 01/27/17 10:00 14:00 Temperature Pulse Rate 86 74 Respiratory Rate Blood Pressure O2 Sat by Pulse Oximetry
[2017-01-27] MEDS ORDERED: Insulin Human NPH 1 UNITS/0.01 ML SC SCH (17:45)
--- NOTE | 2017-01-27 19:07 | OP ---
PROCEDURE DATE: UROLOGY OPERATIVE REPORT Most of the operative report will be dictated by Dr. Lara or his residents. PREOPERATIVE DIAGNOSIS: Necrotizing fasciitis of the perineum and scrotal wall. POSTOPERATIVE DIAGNOSIS: Necrotizing fasciitis of the perineum and scrotal wall, trauma, and urethral stricture. Urology input is assisting during the procedure, as an electrical assistant surgeon, and also for Nava catheter insertion. From urology standpoint, there are no complications. There is drain to be managed as per the surgical team and we will continue to follow along. See the urology consultation and see history and physical and operative report elsewhere. Just dictating the urology standpoint. The patient presents with what appears to be necrotizing fasciitis with gas pockets seen on CT scan. From urology standpoint, there is no specific scrotal abscesses detected today. We made incision into the scrotum with drainage of fluid from edema. There is some area, perhaps under fine inspection with the patient in lithotomy position, that may appear as some skin discoloration, but it is definitely not the blackened skin of a truly necrotic process, and therefore, these were not sent off as samples. From urology standpoint, we started the procedure by inserting the Nava catheter via urethra. The urethral meatus is very hidden with moderate skin edema. We have to work gently and carefully till we roll back the skin and identify the penis meatus. And at the meatus, in fact, the meatus was very, very tight, and required a little soft dilation just to insert the Nava Catheter, but once we inserted it through the meatus, the remainder of the urethra was within normal limits. I was able to insert a 16-Burmese Nava catheter by the urethra and drain out clear yellow urine. From urology standpoint, other than the remainder of the procedure, we are available in assisting and observing and that will be dictated through Dr. Lara. From urology standpoint, at this point, at the termination procedure, drains were placed. Packing was done. The Nava catheter remained in place. We are going to continue to monitor along with the surgical team and follow the patient. Albert Andrews MD [facility] # [id number]
--- NOTE | 2017-01-27 19:18 | PN ---
ENDOCRINOLOGY FOLLOWUP NOTE DATE: LOCATION: ICU room 128, bed 4. 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 He has also been followed closely for metabolic management and his glucose values are improved ranging from 127 to 148 mg/dL. His latest chemistry showed a BUN of 9, sodium of 134, potassium 4.1, chloride 101, CO2 24, glucose 120, and creatinine 0.8. At this time, we will continue the same basal and bolus insulin regimen as given by the primary physician with NPH given as 20 units before breakfast and 20 units at dinnertime as ordered. We will continue the medium dose coverage using regular insulin as ordered. We will titrate incremental as indicated to optimize metabolic control. We will follow with you. Kirti Mc MD
[2017-01-27] MEDS: Ergocalciferol 50,000 Intl Units Cap PO SCH (20:52)
--- NOTE | 2017-01-27 21:45 | CON ---
DATE: The patient is in bed in the ICU 128, bed 4. CHIEF COMPLAINT: Fever and pain times several days. HISTORY OF PRESENT ILLNESS: This is a 41-year-old morbidly obese male with a BMI of 44 with diabetes mellitus admitted with a painful, swollen scrotum times several days and he had an abscess on his left side of the buttocks which he punctured and drained and it became worse and spread to his scrotum. He was taken to the OR last night and had an incision and drainage of a perirectal abscess in the perineal area and a scrotal abscess drainage. Infectious consultation requested. The patient still is having some pain but it is improved. He does have low grade fevers now. No chest pain, shortness of breath and no abdominal pain or diarrhea. No headaches or blurred vision. PAST MEDICAL HISTORY: Significant for diabetes mellitus, hypertension, [id number], chronic obstructive lung disease, pulmonary emboli, obstructive sleep apnea, tobacco use, chronic back pain. PAST SURGICAL HISTORY: Noncontributory. ALLERGIES: THE PATIENT HAS NO KNOWN ALLERGIES. MEDICATIONS AT HOME: Include oxycodone, insulin, Coumadin, Lasix, Lipitor. PHYSICAL EXAMINATION: VITAL SIGNS: He is in bed with a temperature of 99, heart rate 97, respiratory rate was up to 25, and blood pressure is 101/60. HEENT: Examination of HEENT is unremarkable. NECK: Supple. LUNGS: Have decreased breath sounds. HEART: Normal S1, S2. ABDOMEN: Soft. : Examination of scrotum has a primary dressing and wound drainage. LABORATORY EXAMINATION: Reveals a white count of 20,000 with a hemoglobin of 12, platelets of 207, and coagulation is noted. Chemistries reveal a BUN of 9, creatinine of 0.8, glucose of 120, alk phos is 145. Urinalysis is reviewed. Toxicology reveals positive opiates. The patient had an ultrasound of lower extremities, no evidence of DVT. The patient also had a CAT scan, abdomen and pelvis. Scrotal fluid and surrounding soft tissue swelling is noted. Multiple foci of gas within the scrotum extending enlarged lymph nodes. He had a chest x-ray this morning. No active pulmonary disease. Dr. Efren Leone's progress note is reviewed. Dr. Ambrosio's progress note is reviewed. Dr. Schaffer's consultation is reviewed. Dr. Cummins's history and physical examination is reviewed. Postoperative surgery note is reviewed, written by Dr. Santiago and Dr. Hardy who states the patient had perirectal and scrotal abscesses, Dakota's gangrene. We will treat the patient with vancomycin and meropenem pending culture results and further wound culture results and blood culture results and surgical evaluation. We will follow closely with you. Barak Marx MD
[2017-01-27] MEDS: Meropenem IV 1 gm in NS 50 ML IVPB SCH (22:02)
[2017-01-28 01:08] LABS: HEMATOCRIT 35.9 % (38.5-50.0); HEMOGLOBIN 11.8 g/dL (13.2-17.1); RDW 17.4 % (11.0-15.0)
[2017-01-28] MEDS: Acetylcysteine 20% Inhal Soln (4ml) IH SCH ×4 (03:33→20:30)
[2017-01-28] MEDS: Levalbuterol 0.63 MG/3 ML Inhal Soln UD IH SCH ×4 (03:33→20:30)
[2017-01-28] MEDS: HYDROmorphone 2 mg/ml ISec IVP PRN ×4 (03:56→12:48)
[2017-01-28] MEDS: Sodium Chloride 0.9% 1,000 ML IV SCH ×2 (03:56→23:00)
[2017-01-28] MEDS: Meropenem IV 1 gm in NS 50 ML IVPB SCH ×3 (05:07→22:20)
[2017-01-28 06:51] LABS: INR 2.83 (0.93-1.08)
[2017-01-28 07:53] LABS: ALB/GLOB RATIO 0.9 (1.1-1.8); ALKALINE PHOSPHATASE 175 U/L (38-126); ALT/SGPT 30 U/L (7-56); AST/SGOT 34 U/L (17-59); BILIRUBIN,DIRECT 0.9 mg/dL (0.0-0.4); BILIRUBIN,TOTAL 0.9 mg/dL (0.2-1.3); BLOOD UREA NITROGEN 10 mg/dL (7-21); CALCIUM 8.5 mg/dL (8.4-10.5); CARBON DIOXIDE 24 mmol/L (21-33); CHLORIDE 103 mmol/L (98-107); GFR AFRICAN-AMERICAN > 60; GLUCOSE,RANDOM 86 mg/dL (70-110); MAGNESIUM 2.1 mg/dL (1.7-2.2); POTASSIUM 3.9 mmol/L (3.6-5.0); SODIUM 133 mmol/L (132-148); TOTAL PROTEIN 6.6 g/dL (5.8-8.3)
[2017-01-28 07:54] LABS: BASO # 0.02 K/mm3 (0.0-2.0); BASO % 0.1 % (0.0-3.0); EOS # 0.1 (0.0-0.7); EOS % 0.4 % (1.5-5.0); GRAN # 13.51 (1.4-6.5); GRAN % 86.5 % (50.0-68.0); HEMATOCRIT 32.5 % (42.0-52.0); LYMPH # 0.9 (1.2-3.4); LYMPH % 5.9 % (22.0-35.0); MEAN CELL VOLUME 89.5 fl (80.0-105.0); MEAN CORPUSCULAR HEMOGLOBIN 28.4 pg (25.0-35.0); MEAN CORPUSCULAR HGB CONC 31.7 g/dl (31.0-37.0); MEAN PLATELET VOLUME 10.3 fl (7.0-11.0); MONO # 1.1 (0.1-0.6); MONO % 7.1 % (1.0-6.0); RED CELL DISTRIBUTION WIDTH 17.1 % (11.5-14.5); WHITE BLOOD COUNT 15.6 10^3/ul (4.5-11.0)
--- NOTE | 2017-01-28 08:09 | CON ---
DATE: 01/26/2017 UROLOGY CONSULTATION This is an emergency consult requested by Dr. Kaur from the ER. The patient is with a necrotizing fasciitis of his scrotal and perineal region and possible rectal involvement. The patient has gone to the OR with Dr. Lara emergently and Urology was also consulted for input. We are going to brining the patient to the operating room together. See the plans listed below. This is a very pleasant gentlemen who has previously had some drainage problem with little pimples in his groin and perineal region, which he just "sterilely" drained himself by heating up a pin and just draining. Now though, he did the same thing about a week ago, but it has gotten worse over the last week. He describes what he says as a little pin hole just 5 days ago, he says nobody will believe him, but it was just a little pin hole 5 days ago (we do believe that of course, I explained this to the patient that that was what the nature of infections are). He reports that this has become painfully worsening over the last couple of days and over the last couple of hours. He has at this point on a CT scan gas pockets, suggestive of necrotizing fasciitis (see the physical exam below). Urology is consulted for our input regarding the scrotal involvement. Patient reports that he is able to void reasonably well. The flow of stream is okay. There is no history of urethral trauma per se. PAST MEDICAL AND SURGICAL HISTORY: As listed on the chart. SOCIAL HISTORY: He currently not working. 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 He has and a child. Otherwise unremarkable. MEDICATIONS: ALLERGIES: PHYSICAL EXAMINATION GENERAL: A well-nourished male, he actually is somewhat uncomfortable. He is just lying on the gurney. ABDOMEN: Difficult to evaluate, but does not seem to be grossly distended. GENITOURINARY: He has normal male phallus. His scrotal and perineal exam are somewhat difficult. Because of his discomfort, but just the skin is grossly erythematous. I do not see per se any black areas. (We will see him when we bring him to the operating room, see below). There does not appear, but is very tender to be a specific abscess around the scrotal region. There is crepitus felt and he could feel different area along the skin wall that are harder and softer, but there is no specific blackened areas that will definitely require absolute removal, see below in plans and recommendations. Rectal exam was deferred at this time secondary to the patient's discomfort. DIAGNOSIS: Necrotizing fasciitis. Urology plan as is follows: From urology standpoint, we are going to be available to operate with Dr. Lara. We will bring the patient for exploration, removal of skin. I have explained to the patient, we may also have to remove some scrotal wall skin. I have explained this to the carefully in detail with the patient and the depending on work involved. I also explained that some time the cellulitis and necrotizing fascitis at the same time. there is not blackened scrotal skin. We will see what the operative findings. From urology standpoint, also we will plan to insert a Nava catheter during the procedure so as to rule out any urethral stricture disease involvement and plus also of may be any difficult to void postop. So, the urology plan is as follows: 1. Nava insertion during the operating room under sterile technique. 2. Assist the general surgical team as they perform their procedure. Albert Andrews MD
--- NOTE | 2017-01-28 08:42 | CP.PCM.PN ---
Subjective - Date & Time of Evaluation Date of Evaluation: 01/28/17 Time of Evaluation: 08:39 - Subjective Subjective: Pt seen and examined, reports he has testicular pain. Denies fever, chills, cough, chest pain, palpitations, MIRANDA, dizziness. Objective - Vital Signs/Intake and Output Vital Signs (last 24 hours): Temp Pulse Resp BP Pulse Ox 98.7 F 70 18 119/47 L 95 01/28/17 06:14 01/28/17 06:00 01/28/17 06:00 01/28/17 06:00 01/28/17 06:00 Intake and Output: 01/28/17 01/28/17 06:59 18:59 Intake Total 4470 Output Total 2225 Balance 2245 - Medications Medications: Current Medications Acetylcysteine (Acetylcysteine 20%) 4 ml IH [id number] [facility] Last Admin: 01/28/17 07:06 Dose: Not Given Atorvastatin Calcium (Lipitor) 40 mg PO DAILY [facility] Last Admin: 01/27/17 09:40 Dose: 40 mg Carvedilol (Coreg) 3.125 mg PO BID [facility] Last Admin: 01/27/17 18:28 Dose: 3.125 mg Docusate Sodium (Colace) 100 mg PO DAILY [facility] Last Admin: 01/27/17 09:43 Dose: 100 mg Ergocalciferol (Drisdol 50,000 Intl Units Cap) 1 cap PO Q48H [facility] Stop: 02/18/17 19:31 Last Admin: 01/27/17 20:52 Dose: 1 cap Hydromorphone HCl (Dilaudid) 2 mg IVP Q3H PRN PRN Reason: Pain, moderate (4-7) Last Admin: 01/28/17 06:49 Dose: 2 mg Vancomycin HCl 1.5 gm/ Sodium (Chloride) 500 mls @ 250 mls/hr IVPB Q12H JUN PRN Reason: Protocol Last Admin: 01/27/17 20:51 Dose: 250 mls/hr Acetaminophen (Ofirmev) 1,000 mg in 100 mls @ 400 mls/hr IVPB Q6H [facility] Stop: 01/29/17 00:16 Last Admin: 01/28/17 05:17 Dose: Not Given Sodium Chloride (Sodium Chloride 0.9%) 1,000 mls @ 150 mls/hr IV .Q6H40M [facility] Last Admin: 01/28/17 03:56 Dose: 150 mls/hr Meropenem (Merrem Iv 1 Gm Premix) 50 mls @ 100 mls/hr IVPB Q8 [facility] PRN Reason: Protocol Stop: 02/02/17 23:16 Last Admin: 01/28/17 05:07 Dose: 100 mls/hr Insulin Human Lispro (Humalog Med) 0 units SC ACHS [facility] PRN Reason: Protocol Last Admin: 01/27/17 22:04 Dose: Not Given Insulin Human NPH (Humulin N) 20 units SC ACB [facility] Last Admin: 01/27/17 08:47 Dose: 20 units Insulin Human NPH (Humulin N) 20 units SC DAILY@1745 [facility] Last Admin: 01/27/17 17:46 Dose: 20 units Levalbuterol HCl (Xopenex) 0.63 mg IH [id number] [facility] Last Admin: 01/28/17 07:06 Dose: 0.63 mg Nicotine (Nicoderm Cq) 1 patch TD DAILY PRN PRN Reason: URGE TO SMOKE Ondansetron HCl (Zofran Inj) 4 mg IVP Q6H PRN PRN Reason: Nausea/Vomiting Oxycodone HCl (Oxycodone Immediate Release Tab) 10 mg PO Q6H PRN PRN Reason: Pain, moderate (4-7) Pantoprazole Sodium (Protonix Ec Tab) 40 mg PO DAILY [facility] Polyethylene Glycol (Miralax) 17 gm PO BID [facility] Last Admin: 01/27/17 18:28 Dose: 17 gm Pregabalin (Lyrica) 75 mg PO BID [facility] Last Admin: 01/27/17 18:28 Dose: 75 mg Ursodiol (Actigall) 300 mg PO BID [facility] Last Admin: 01/27/17 18:28 Dose: 300 mg Venlafaxine HCl (Effexor Xr) 75 mg PO DAILY [facility] Last Admin: 01/27/17 09:40 Dose: 75 mg - Labs Labs: 01/28/17 06:00 01/28/17 06:00 PT 31.8 SECONDS (9.4-12.5) H 01/28/17 06:00 INR 2.83 (0.93-1.08) H 01/28/17 06:00 APTT 37.0 Seconds (25.1-36.5) H 01/28/17 06:00 - Constitutional Appears: Well, Non-toxic, No Acute Distress - Eye Exam Eye Exam: Normal appearance - ENT Exam ENT Exam: Mucous Membranes Moist - Respiratory Exam Respiratory Exam: Clear to Ausculation Bilateral, NORMAL BREATHING PATTERN - Cardiovascular Exam Cardiovascular Exam: REGULAR RHYTHM, +S1, +S2 - GI/Abdominal Exam GI & Abdominal Exam: Soft, Normal Bowel Sounds Additional comments: Obese - Exam Additional comments: dressing present - Neurological Exam Neurological Exam: Alert, Awake, Oriented x3 Assessment and Plan - Assessment and Plan (Free Text) Assessment: 41yo male s/p POD#2 perianal abscess drainage Perirectal Abscess s/p drainage DM Hx of PE/DVT on A/C Obesity HTN - currently afebrile, HD stable, comfortable on room air, sat 99% - labs reviewed Recommend: - supp o2 as needed - antibiotics as per ID, follow up cultures - BP control - IVF hydration - Pain control - follow up surgery - FS control - repeat DVT study negative, A/C as per primary team - GI ppx - Stable, transfer to regional medical floor
[2017-01-28] MEDS: Insulin Lispro (humaLOG) MEDIUM Coverage SC SCH ×4 (08:56→22:15)
[2017-01-28] MEDS: Insulin Human NPH 1 UNITS/0.01 ML SC SCH ×2 (09:01→18:13)
[2017-01-28] MEDS: Vancomycin 1.5 GM in Sodium Chloride 0.9% 500 ML IVPB SCH ×2 (10:10→21:05)
[2017-01-28] MEDS: Pantoprazole 40 mg EC Tab PO SCH (10:14)
[2017-01-28] MEDS: Venlafaxine 75 mg ER Cap PO SCH (10:15)
[2017-01-28] MEDS: POLYETHYLENE GLYCOL 3350 17 GM/Dose PACKET PO SCH ×2 (10:15→17:45)
--- NOTE | 2017-01-28 10:40 | CP.PCM.PN ---
<HiramOtilia - Last Filed: 01/28/17 12:48> Subjective - Date & Time of Evaluation Date of Evaluation: 01/28/17 Time of Evaluation: 09:00 - Subjective Subjective: PGY-[address] Cummins Pt states that pain has kept him from sleeping. Educated pt re: notify RN to give pain med. Last BM 3 days ago. Usu no hx of constipation. Denies f/c Objective - Vital Signs/Intake and Output Vital Signs (last 24 hours): Temp Pulse Resp BP Pulse Ox 98.7 F 80 18 114/52 L 95 01/28/17 06:14 01/28/17 10:14 01/28/17 06:00 01/28/17 10:14 01/28/17 06:00 Intake and Output: 01/28/17 01/28/17 06:59 18:59 Intake Total 4470 Output Total 2225 Balance 2245 - Medications Medications: Current Medications Acetylcysteine (Acetylcysteine 20%) 4 ml IH [id number] [facility] Last Admin: 01/28/17 07:06 Dose: Not Given Atorvastatin Calcium (Lipitor) 40 mg PO DAILY [facility] Last Admin: 01/28/17 10:13 Dose: 40 mg Carvedilol (Coreg) 3.125 mg PO BID [facility] Last Admin: 01/28/17 10:14 Dose: 3.125 mg Docusate Sodium (Colace) 100 mg PO DAILY [facility] Last Admin: 01/28/17 10:13 Dose: 100 mg Ergocalciferol (Drisdol 50,000 Intl Units Cap) 1 cap PO Q48H [facility] Stop: 02/18/17 19:31 Last Admin: 01/27/17 20:52 Dose: 1 cap Hydromorphone HCl (Dilaudid) 2 mg IVP Q3H PRN PRN Reason: Pain, moderate (4-7) Last Admin: 01/28/17 10:07 Dose: 2 mg Vancomycin HCl 1.5 gm/ Sodium (Chloride) 500 mls @ 250 mls/hr IVPB Q12H [facility] PRN Reason: Protocol Last Admin: 01/28/17 10:10 Dose: 250 mls/hr Acetaminophen (Ofirmev) 1,000 mg in 100 mls @ 400 mls/hr IVPB Q6H [facility] Stop: 01/29/17 00:16 Last Admin: 01/28/17 05:17 Dose: Not Given Sodium Chloride (Sodium Chloride 0.9%) 1,000 mls @ 150 mls/hr IV .Q6H40M [facility] Last Admin: 01/28/17 03:56 Dose: 150 mls/hr Meropenem (Merrem Iv 1 Gm Premix) 50 mls @ 100 mls/hr IVPB Q8 [facility] PRN Reason: Protocol Stop: 02/02/17 23:16 Last Admin: 01/28/17 05:07 Dose: 100 mls/hr Insulin Human Lispro (Humalog Med) 0 units SC ACHS [facility] PRN Reason: Protocol Last Admin: 01/28/17 08:56 Dose: Not Given Insulin Human NPH (Humulin N) 20 units SC ACB [facility] Last Admin: 01/28/17 09:01 Dose: 20 units Insulin Human NPH (Humulin N) 20 units SC DAILY@1745 [facility] Last Admin: 01/27/17 17:46 Dose: 20 units Levalbuterol HCl (Xopenex) 0.63 mg IH [id number] [facility] Last Admin: 01/28/17 07:06 Dose: 0.63 mg Nicotine (Nicoderm Cq) 1 patch TD DAILY PRN PRN Reason: URGE TO SMOKE Last Admin: 01/28/17 10:15 Dose: 1 patch Ondansetron HCl (Zofran Inj) 4 mg IVP Q6H PRN PRN Reason: Nausea/Vomiting Oxycodone HCl (Oxycodone Immediate Release Tab) 10 mg PO Q6H PRN PRN Reason: Pain, moderate (4-7) Pantoprazole Sodium (Protonix Ec Tab) 40 mg PO DAILY [facility] Last Admin: 01/28/17 10:14 Dose: 40 mg Polyethylene Glycol (Miralax) 17 gm PO BID [facility] Last Admin: 01/28/17 10:15 Dose: 17 gm Pregabalin (Lyrica) 75 mg PO BID [facility] Last Admin: 01/28/17 10:15 Dose: 75 mg Ursodiol (Actigall) 300 mg PO BID [facility] Last Admin: 01/28/17 10:15 Dose: 300 mg Venlafaxine HCl (Effexor Xr) 75 mg PO DAILY [facility] Last Admin: 01/28/17 10:15 Dose: 75 mg - Labs Labs: 01/28/17 06:00 01/28/17 06:00 PT 31.8 SECONDS (9.4-12.5) H 01/28/17 06:00 INR 2.83 (0.93-1.08) H 01/28/17 06:00 APTT 37.0 Seconds (25.1-36.5) H 01/28/17 06:00 - Constitutional Appears: No Acute Distress - Head Exam Head Exam: ATRAUMATIC, NORMAL INSPECTION, NORMOCEPHALIC - Eye Exam Eye Exam: EOMI, Normal appearance, PERRL. absent: Scleral icterus Pupil Exam: NORMAL ACCOMODATION - ENT Exam ENT Exam: Mucous Membranes Moist - Neck Exam Additional comments: supple - Respiratory Exam Respiratory Exam: Decreased Breath Sounds (bibasilar), Clear to Ausculation Bilateral, NORMAL BREATHING PATTERN. absent: Rales, Rhonchi, Wheezes - Cardiovascular Exam Cardiovascular Exam: REGULAR RHYTHM, +S1, +S2 - GI/Abdominal Exam GI & Abdominal Exam: Soft, Normal Bowel Sounds. absent: Guarding, Rigid, Tenderness - Exam Additional comments: inguinal area erythma with increased warmth, improved from yesterday - Extremities Exam Extremities Exam: Normal Capillary Refill, Pedal Edema. absent: Calf Tenderness Additional comments: + pedal pulses - Neurological Exam Neurological Exam: Alert, Awake Neuro motor strength exam: Left Upper Extremity: 5, Right Upper Extremity: 5, Left Lower Extremity: 5, Right Lower Extremity: 5 - Psychiatric Exam Psychiatric exam: Normal Affect, Normal Mood - Skin Skin Exam: Dry, Warm Assessment and Plan - Assessment and Plan (Free Text) Plan: Mr Waggoner, 41 year old morbidly obese male with BMI of 44, with PMHx of DM , HTN, COPD, ASBI, active tobacco use, hx pulmonary emboli, admitted with a pain , swellen scrotum x several days. He had an abscess on L buttocks which pt punctures and drained and it because worse and spread to his scrotum. On 01/26, He had an incision and drainage of (1) perirectal abscess in perineal area and ( 2) scrotal abscess. Post opPt developed a low grade fever. 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 His urine grows gram (+) cocci Fornier gangrene, I&D s/p POD 2 Perirectal and scrotal abscesses possibly from Epididymitis, R - Vancomycin and meropenem - Pending culture - maintain fernandes, local wound care - pain: Durgesic 25 JUN; dilaudid 1q3 PRN; Oxycodone IR 10 PO q6 UTI vs gram (+) cocci asymptomatic bactereuria - on ABX per ID Cholethiasis, asymptomatic - Added ursodiol (actigall 300 BID) DM, A1C 6 - NPH 18u ACB, 14u ACD, regular insulin sliding -med HTN CAD risk - Carvedilol 3.125 BID, Lipitor 40, vit D Hx pulmonary emboli on Warfarin, goal INR 2-3. 2.6 today Hx COPD, SABI Smoker, tobacco dependent - Acetylcystein, xopenex - nicoderm - HOLD WARFARIN Morbid obesity - Dietitian referral Chronic pain - lyrica bid, Effecxor XR Qd GI regimen - Colace qd, miralax bid, zofran prn PVX - protonix, AE hose, SCD FEN - NS@150, HHD, Consult - Endocrin - Dr. Mc - Surgery - Dr. Lara - Urol - Dr. Sylvester Andrews - ID - Dr. Marx CT A/P IV (01/26) - scrotal fluid with surrounding tissue - gas in scrotum extending to perineum - distended gallbladder with sludge - fatty liver, hepatomegaly, splenomegaly - enlarge ingunal lymph nodes b/l but no retroperitoneal lymph nodes Testicular U/S - increase vasculular flow to R epididymis - b/l epididymal cyst, enlarged epididymal heads, heterogenoeous - no testicular torsion EKG - NSR 95, RBBB, QTc 500 Abd u/s - gb sludge LE u/s - no dvt CXR on admission - no acive dz 01/27 - no active dz 01/28 - pending s/r/d/w Dr. Cummins <Dakotah Cummins U - Last Filed: 02/07/17 14:51> Objective - Vital Signs/Intake and Output Vital Signs (last 24 hours): Temp Pulse Resp BP Pulse Ox 97.8 F 57 L 18 137/73 96 02/02/17 08:15 02/02/17 09:13 02/02/17 08:15 02/02/17 09:13 02/02/17 08:15 - Labs Labs: 02/02/17 05:30 02/02/17 05:30 PT 23.8 SECONDS (9.4-12.5) H 02/02/17 05:30 INR 2.13 (0.93-1.08) H 02/02/17 05:30 APTT 35.0 Seconds (25.1-36.5) 02/02/17 05:30 Attending/Attestation - Attestation I have personally seen and examined this patient.: Yes I have fully participated in the care of the patient.: Yes I have reviewed all pertinent clinical information, including history, physical exam and plan: Yes Notes (Text): Please see/read my dictated notes.
--- NOTE | 2017-01-28 11:09 | CP.PCM.PN ---
Subjective - Date & Time of Evaluation Date of Evaluation: 01/28/17 Time of Evaluation: 11:06 - Subjective Subjective: Surgery Pt s&e. NAEON. Denies F/C/N/V/D/CP/SOB. Dressing changed this AM. c/o pain. Objective - Vital Signs/Intake and Output Vital Signs (last 24 hours): Temp Pulse Resp BP Pulse Ox 98.7 F 80 18 114/52 L 95 01/28/17 06:14 01/28/17 10:14 01/28/17 06:00 01/28/17 10:14 01/28/17 06:00 Intake and Output: 01/28/17 01/28/17 06:59 18:59 Intake Total 4470 Output Total 2225 Balance 2245 - Medications Medications: Current Medications Acetylcysteine (Acetylcysteine 20%) 4 ml IH [id number] [facility] Last Admin: 01/28/17 07:06 Dose: Not Given Atorvastatin Calcium (Lipitor) 40 mg PO DAILY [facility] Last Admin: 01/28/17 10:13 Dose: 40 mg Carvedilol (Coreg) 3.125 mg PO BID [facility] Last Admin: 01/28/17 10:14 Dose: 3.125 mg Docusate Sodium (Colace) 100 mg PO DAILY [facility] Last Admin: 01/28/17 10:13 Dose: 100 mg Ergocalciferol (Drisdol 50,000 Intl Units Cap) 1 cap PO Q48H [facility] Stop: 02/18/17 19:31 Last Admin: 01/27/17 20:52 Dose: 1 cap Hydromorphone HCl (Dilaudid) 2 mg IVP Q3H PRN PRN Reason: Pain, moderate (4-7) Last Admin: 01/28/17 10:07 Dose: 2 mg Vancomycin HCl 1.5 gm/ Sodium (Chloride) 500 mls @ 250 mls/hr IVPB Q12H [facility] PRN Reason: Protocol Last Admin: 01/28/17 10:10 Dose: 250 mls/hr Acetaminophen (Ofirmev) 1,000 mg in 100 mls @ 400 mls/hr IVPB Q6H [facility] Stop: 01/29/17 00:16 Last Admin: 01/28/17 05:17 Dose: Not Given Sodium Chloride (Sodium Chloride 0.9%) 1,000 mls @ 150 mls/hr IV .Q6H40M [facility] Last Admin: 01/28/17 03:56 Dose: 150 mls/hr Meropenem (Merrem Iv 1 Gm Premix) 50 mls @ 100 mls/hr IVPB Q8 [facility] PRN Reason: Protocol Stop: 02/02/17 23:16 Last Admin: 01/28/17 05:07 Dose: 100 mls/hr Insulin Human Lispro (Humalog Med) 0 units SC ACHS [facility] PRN Reason: Protocol Last Admin: 01/28/17 08:56 Dose: Not Given Insulin Human NPH (Humulin N) 20 units SC ACB [facility] Last Admin: 01/28/17 09:01 Dose: 20 units Insulin Human NPH (Humulin N) 20 units SC DAILY@1745 [facility] Last Admin: 01/27/17 17:46 Dose: 20 units Levalbuterol HCl (Xopenex) 0.63 mg IH [id number] [facility] Last Admin: 01/28/17 07:06 Dose: 0.63 mg Nicotine (Nicoderm Cq) 1 patch TD DAILY PRN PRN Reason: URGE TO SMOKE Last Admin: 01/28/17 10:15 Dose: 1 patch Ondansetron HCl (Zofran Inj) 4 mg IVP Q6H PRN PRN Reason: Nausea/Vomiting Oxycodone HCl (Oxycodone Immediate Release Tab) 10 mg PO Q6H PRN PRN Reason: Pain, moderate (4-7) Pantoprazole Sodium (Protonix Ec Tab) 40 mg PO DAILY [facility] Last Admin: 01/28/17 10:14 Dose: 40 mg Polyethylene Glycol (Miralax) 17 gm PO BID [facility] Last Admin: 01/28/17 10:15 Dose: 17 gm Pregabalin (Lyrica) 75 mg PO BID [facility] Last Admin: 01/28/17 10:15 Dose: 75 mg Ursodiol (Actigall) 300 mg PO BID [facility] Last Admin: 01/28/17 10:15 Dose: 300 mg Venlafaxine HCl (Effexor Xr) 75 mg PO DAILY [facility] Last Admin: 01/28/17 10:15 Dose: 75 mg - Labs Labs: 01/28/17 06:00 01/28/17 06:00 PT 31.8 SECONDS (9.4-12.5) H 01/28/17 06:00 INR 2.83 (0.93-1.08) H 01/28/17 06:00 APTT 37.0 Seconds (25.1-36.5) H 01/28/17 06:00 - Constitutional Appears: Non-toxic - Head Exam Head Exam: ATRAUMATIC, NORMAL INSPECTION, NORMOCEPHALIC - Eye Exam Eye Exam: EOMI, Normal appearance, PERRL Pupil Exam: NORMAL ACCOMODATION, PERRL - ENT Exam ENT Exam: Mucous Membranes Moist, Normal Exam - Neck Exam Neck Exam: Full ROM, Normal Inspection. absent: Lymphadenopathy - Respiratory Exam Respiratory Exam: Clear to Ausculation Bilateral, NORMAL BREATHING PATTERN - Cardiovascular Exam Cardiovascular Exam: REGULAR RHYTHM, +S1, +S2. absent: Murmur - GI/Abdominal Exam GI & Abdominal Exam: Soft, Normal Bowel Sounds. absent: Tenderness - Rectal Exam Rectal Exam: NORMAL INSPECTION - Exam Exam: Scrotal Swelling, Testicular Tenderness. absent: NORMAL INSPECTION, Uretheral Discharge, Bladder Distension External exam: Erythema, Swelling. absent: NORMAL EXTERNAL EXAM Additional comments: Nava in place. Multiple ruthie drain in place. Dressing saturated. - Extremities Exam Extremities Exam: Full ROM - Back Exam Back Exam: NORMAL INSPECTION - Neurological Exam Neurological Exam: Alert, Awake, CN II-XII Intact, Oriented x3. absent: Normal Gait - Psychiatric Exam Psychiatric exam: Normal Affect, Normal Mood - Skin Skin Exam: Erythema, Warm. absent: Intact, Normal Color Assessment and Plan - Assessment and Plan (Free Text) Assessment: sp Incision and drainage of perirectal abscess POD 2 Leukocytosis : trending down -Dressing change as needed. -MOnitor Labs/ VS -Urology on board. -ABX -Pain control -Medical management Will DW Dr. Galeana
--- NOTE | 2017-01-28 11:53 | PN ---
DATE: 01/28/2017 SUBJECTIVE: The patient is seen earlier this morning. No acute distress. Nontoxic. He is still having significant amount of pain he states. PHYSICAL EXAMINATION: VITAL SIGNS: Temperature is 98, blood pressure is 119/40, respiratory rate of 18, heart rate of 70. HEENT: Unremarkable. NECK: Supple. LUNGS: Have decreased breath sounds. HEART: Normal S1 and S2. ABDOMEN: Soft and nontender. LABORATORY EXAMINATION: Reveals a white count of 15,600, hemoglobin of 10, platelets of 211. Chemistries reveal the patient with a BUN of 10, creatinine of 0.8, and an alk phos is 175. Microbiology reveals the blood cultures have no growth at 24 hours, and the wound cultures and cultures are pending. MEDICATIONS: Review of orders reveals the patient to be on vancomycin and meropenem. Dr. Cummins's note is reviewed. Dr. Efren Leone's note is reviewed from this morning and Dr. Andrews's note is reviewed. ASSESSMENT AND PLAN: A 41-year-old morbidly obese male with a body mass index of 45 and diabetes mellitus, who was admitted with scrotal pain, was taken to the operating room, had a drainage. 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 We will follow closely with you. Barak Marx MD
[2017-01-28 12:19] LABS: HEMOGLOBIN F <1.0 Percent (<2.0)
--- NOTE | 2017-01-28 13:36 | RAD ---
HISTORY: BIBASILAR DECREASE LUNG SOUND COMPARISON: 01/27/2017 FINDINGS: LUNGS: No active pulmonary disease. PLEURA: No significant pleural effusion identified, no pneumothorax apparent. CARDIOVASCULAR: Mild cardiomegaly OSSEOUS STRUCTURES: No significant abnormalities. VISUALIZED UPPER ABDOMEN: Normal. OTHER FINDINGS: None. IMPRESSION: No active disease.
[2017-01-28] MEDS ORDERED: Naproxen 550 mg Tab PO PRN (14:23)
--- NOTE | 2017-01-28 14:39 | PN ---
DATE: ENDO FOLLOWUP NOTE LOCATION: ICU 128, room 4. SUMMARY: This is a 41-year-old male with recent uncontrolled type 2 insulin-requiring diabetes presenting here with perirectal and scrotal abscesses and underwent incision and drainage procedures and is now being followed closely for metabolic management. He has ongoing IV antibiotics as given and noted. His glycemic levels are fluctuating, but much improved at this time and the latest glucose levels have ranged from 95 mg dL to 98 mg/dL. The latest chemistries showed BUN of 10, sodium of 133, potassium of 3.9, chloride of 103, CO2 of 24, glucose of 86, and creatinine of 0.8. So at this time, we will modify his current basal regimen and lower the Humulin NPH to 14 units at dinner time and 18 units at breakfast time as ordered. We will continue the medium dose correction scale using Humalog insulin as given. We will obtain serial chemistries and supplement accordingly as needed. We will follow with the patient. Kirti Mc MD
[2017-01-28] MEDS: HYDROmorphone 1 mg/ml ISec IVP PRN ×2 (17:03→22:20)
[2017-01-28] MEDS: oxyCODONE 10 mg Immediate Release Tab PO PRN (21:16)
[2017-01-29] MEDS: HYDROmorphone 1 mg/ml ISec IVP PRN ×2 (01:54→05:24)
[2017-01-29] MEDS: Levalbuterol 0.63 MG/3 ML Inhal Soln UD IH SCH ×4 (02:40→20:05)
[2017-01-29] MEDS: Acetylcysteine 20% Inhal Soln (4ml) IH SCH ×4 (02:40→20:05)
[2017-01-29] MEDS: oxyCODONE 10 mg Immediate Release Tab PO PRN (04:20)
[2017-01-29] MEDS: Sodium Chloride 0.9% 1,000 ML IV SCH ×3 (04:21→12:54)
[2017-01-29] MEDS: Meropenem IV 1 gm in NS 50 ML IVPB SCH ×3 (05:23→21:26)
[2017-01-29 06:29] LABS: BASO # 0.03 K/mm3 (0.0-2.0); BASO % 0.2 % (0.0-3.0); EOS # 0.1 (0.0-0.7); EOS % 0.8 % (1.5-5.0); GRAN # 10.02 (1.4-6.5); GRAN % 76.6 % (50.0-68.0); HEMATOCRIT 31.4 % (42.0-52.0); LYMPH # 1.8 (1.2-3.4); LYMPH % 13.6 % (22.0-35.0); MEAN CELL VOLUME 88.7 fl (80.0-105.0); MEAN CORPUSCULAR HEMOGLOBIN 29.4 pg (25.0-35.0); MEAN CORPUSCULAR HGB CONC 33.1 g/dl (31.0-37.0); MEAN PLATELET VOLUME 9.8 fl (7.0-11.0); MONO # 1.2 (0.1-0.6); MONO % 8.8 % (1.0-6.0); WHITE BLOOD COUNT 13.1 10^3/ul (4.5-11.0)
[2017-01-29 07:16] LABS: INR 2.66 (0.93-1.08); PARTIAL THROMBOPLASTIN TIME 35.9 Seconds (25.1-36.5)
[2017-01-29] MEDS ORDERED: HYDROmorphone 2 mg/ml ISec IVP STA (07:25)
[2017-01-29 07:48] LABS: POTASSIUM 3.8 mmol/L (3.6-5.0)
[2017-01-29 08:15] LABS: ALB/GLOB RATIO 0.9 (1.1-1.8); ALKALINE PHOSPHATASE 243 U/L (38-126); ALT/SGPT 27 U/L (7-56); AST/SGOT 38 U/L (17-59); BILIRUBIN,DIRECT 0.7 mg/dL (0.0-0.4); BILIRUBIN,TOTAL 0.7 mg/dL (0.2-1.3); BLOOD UREA NITROGEN 10 mg/dL (7-21); CALCIUM 8.7 mg/dL (8.4-10.5); CARBON DIOXIDE 25 mmol/L (21-33); CHLORIDE 103 mmol/L (98-107); GFR AFRICAN-AMERICAN > 60; GLUCOSE,RANDOM 123 mg/dL (70-110); MAGNESIUM 1.7 mg/dL (1.7-2.2); SODIUM 133 mmol/L (132-148); TOTAL PROTEIN 6.4 g/dL (5.8-8.3)
[2017-01-29] MEDS: Insulin Lispro (humaLOG) MEDIUM Coverage SC SCH ×3 (08:55→21:25)
[2017-01-29] MEDS ORDERED: oxyCODONE 30 mg Immediate Release Tab PO PRN (09:09)
[2017-01-29] MEDS ORDERED: oxyCODONE 30 mg Immediate Release Tab PO ONE ×2 (09:45→10:00)
--- NOTE | 2017-01-29 09:47 | CP.PCM.PN ---
Subjective - Date & Time of Evaluation Date of Evaluation: 01/29/17 Time of Evaluation: 09:43 - Subjective Subjective: Surgery Pt s&e. CLARENCE. Denies F/C/N/V/D/CP/SOVB. c/o back pain. 2 ruthie removed and Dressing changed this AM. Tolerated it well. Objective - Vital Signs/Intake and Output Vital Signs (last 24 hours): Temp Pulse Resp BP Pulse Ox 97.4 F L 64 20 106/46 L 99 01/29/17 08:03 01/29/17 08:03 01/29/17 08:03 01/29/17 08:03 01/29/17 08:03 Intake and Output: 01/29/17 01/29/17 06:59 18:59 Intake Total 1280 480 Output Total 2000 700 Balance -720 -220 - Medications Medications: Current Medications Acetylcysteine (Acetylcysteine 20%) 4 ml IH [id number] [facility] Last Admin: 01/29/17 07:49 Dose: Not Given Atorvastatin Calcium (Lipitor) 40 mg PO DAILY [facility] Last Admin: 01/28/17 10:13 Dose: 40 mg Carvedilol (Coreg) 3.125 mg PO BID [facility] Last Admin: 01/28/17 17:45 Dose: 3.125 mg Docusate Sodium (Colace) 100 mg PO DAILY [facility] Last Admin: 01/28/17 10:13 Dose: 100 mg Ergocalciferol (Drisdol 50,000 Intl Units Cap) 1 cap PO Q48H [facility] Stop: 02/18/17 19:31 Last Admin: 01/27/17 20:52 Dose: 1 cap Fentanyl (Duragesic) 1 patch TD Q72H [facility] Last Admin: 01/28/17 13:46 Dose: 1 patch Hydromorphone HCl (Dilaudid) 1 mg IVP Q3H PRN PRN Reason: Pain, moderate (4-7) Last Admin: 01/29/17 05:24 Dose: 1 mg Vancomycin HCl 1.5 gm/ Sodium (Chloride) 500 mls @ 250 mls/hr IVPB Q12H JUN PRN Reason: Protocol Last Admin: 01/28/17 21:05 Dose: 250 mls/hr Sodium Chloride (Sodium Chloride 0.9%) 1,000 mls @ 150 mls/hr IV .Q6H40M [facility] Last Admin: 01/29/17 04:21 Dose: 150 mls/hr Meropenem (Merrem Iv 1 Gm Premix) 50 mls @ 100 mls/hr IVPB Q8 [facility] PRN Reason: Protocol Stop: 02/02/17 23:16 Last Admin: 01/29/17 05:23 Dose: 100 mls/hr Insulin Human Lispro (Humalog Med) 0 units SC ACHS [facility] PRN Reason: Protocol Last Admin: 01/29/17 08:55 Dose: Not Given Insulin Human NPH (Humulin N) 14 units SC DAILY@1745 [facility] Last Admin: 01/28/17 18:13 Dose: 14 units Insulin Human NPH (Humulin N) 18 units SC ACB [facility] Levalbuterol HCl (Xopenex) 0.63 mg IH S8JSIVE [facility] Last Admin: 01/29/17 07:48 Dose: 0.63 mg Nicotine (Nicoderm Cq) 1 patch TD DAILY PRN PRN Reason: URGE TO SMOKE Last Admin: 01/28/17 10:15 Dose: 1 patch Ondansetron HCl (Zofran Inj) 4 mg IVP Q6H PRN PRN Reason: Nausea/Vomiting Oxycodone HCl (Oxycodone Immediate Release Tab) 10 mg PO Q6H PRN PRN Reason: Pain, moderate (4-7) Last Admin: 01/29/17 04:20 Dose: 10 mg Oxycodone HCl (Oxycodone Immediate Release Tab) 30 mg PO Q8 PRN PRN Reason: pain Oxycodone HCl (Oxycodone Immediate Release Tab) 30 mg PO ONCE ONE Stop: 01/29/17 10:01 Pantoprazole Sodium (Protonix Ec Tab) 40 mg PO DAILY [facility] Last Admin: 01/28/17 10:14 Dose: 40 mg Polyethylene Glycol (Miralax) 17 gm PO BID [facility] Last Admin: 01/28/17 17:45 Dose: 17 gm Pregabalin (Lyrica) 75 mg PO BID [facility] Last Admin: 01/28/17 17:45 Dose: 75 mg Ursodiol (Actigall) 300 mg PO BID [facility] Last Admin: 01/28/17 17:45 Dose: 300 mg Venlafaxine HCl (Effexor Xr) 75 mg PO DAILY [facility] Last Admin: 01/28/17 10:15 Dose: 75 mg - Labs Labs: 01/29/17 05:40 01/29/17 05:40 PT 29.8 SECONDS (9.4-12.5) H 01/29/17 05:40 INR 2.66 (0.93-1.08) H 01/29/17 05:40 APTT 35.9 Seconds (25.1-36.5) 01/29/17 05:40 - Constitutional Appears: No Acute Distress - Head Exam Head Exam: ATRAUMATIC, NORMAL INSPECTION, NORMOCEPHALIC - Eye Exam Eye Exam: EOMI, Normal appearance, PERRL Pupil Exam: NORMAL ACCOMODATION, PERRL - ENT Exam ENT Exam: Mucous Membranes Moist, Normal Exam - Neck Exam Neck Exam: Full ROM, Normal Inspection. absent: Lymphadenopathy - Respiratory Exam Respiratory Exam: Clear to Ausculation Bilateral, NORMAL BREATHING PATTERN - Cardiovascular Exam Cardiovascular Exam: REGULAR RHYTHM, +S1, +S2. absent: Murmur - GI/Abdominal Exam GI & Abdominal Exam: Soft, Normal Bowel Sounds. absent: Distended, Firm, Guarding, Tenderness - Rectal Exam Rectal Exam: absent: Black Stool, Bloody Stool, Hemorrhoids, Fecal Impaction, NORMAL INSPECTION Additional comments: ruthie in place. Erythema. SeroSang drainage. Dressing changed. - Exam Exam: Scrotal Swelling, Testicular Tenderness. absent: NORMAL INSPECTION Additional comments: Wetzle in place. - Extremities Exam Extremities Exam: Full ROM, Normal Capillary Refill, Normal Inspection. absent : Joint Swelling, Pedal Edema - Back Exam Back Exam: NORMAL INSPECTION - Neurological Exam Neurological Exam: Alert, Awake, CN II-XII Intact, Oriented x3 - Psychiatric Exam Psychiatric exam: Normal Affect, Normal Mood - Skin Skin Exam: Erythema, Warm. absent: Intact Assessment and Plan - Assessment and Plan (Free Text) Assessment: sp Incision and drainage of perirectal abscess POD 3 Leukocytosis 13 : trending down Urine cx : Staph -Dressing change as needed. -Monitor Labs/ VS -Urology on board. -ABX -Pain control -Medical management LESLY Galeana
[2017-01-29] MEDS: Venlafaxine 75 mg ER Cap PO SCH (10:04)
[2017-01-29] MEDS: Pantoprazole 40 mg EC Tab PO SCH (10:05)
[2017-01-29] MEDS: Insulin Human NPH 1 UNITS/0.01 ML SC SCH ×2 (10:05→17:20)
[2017-01-29] MEDS: POLYETHYLENE GLYCOL 3350 17 GM/Dose PACKET PO SCH ×2 (10:06→17:20)
[2017-01-29] MEDS: Vancomycin 1.5 GM in Sodium Chloride 0.9% 500 ML IVPB SCH ×2 (10:07→21:58)
[2017-01-29] MEDS: oxyCODONE 30 mg Immediate Release Tab PO PRN ×2 (12:53→22:00)
[2017-01-29] MEDS ORDERED: Barium Sulfate Susp 2.1% w/v, 2.0% w/w 450 mL Bottle PO ONE (13:13)
[2017-01-29 14:56] LABS: GLYCOMARK(R) 2.6 mcg/mL (7.3-36.6)
--- NOTE | 2017-01-29 14:57 | CP.PCM.PN ---
<Otilia Gandhi - Last Filed: 01/29/17 14:52> Subjective - Date & Time of Evaluation Date of Evaluation: 01/29/17 Time of Evaluation: 14:53 - Subjective Subjective: PGY-[address] Cummins Pt has no BM yet. Pt complained that pain regimen was not enough and wanted his home regimen Objective - Vital Signs/Intake and Output Vital Signs (last 24 hours): Temp Pulse Resp BP Pulse Ox 97.4 F L 68 20 120/62 99 01/29/17 08:03 01/29/17 10:03 01/29/17 08:03 01/29/17 10:03 01/29/17 08:03 Intake and Output: 01/29/17 01/29/17 06:59 18:59 Intake Total 1280 480 Output Total 2000 700 Balance -720 -220 - Medications Medications: Current Medications Acetylcysteine (Acetylcysteine 20%) 4 ml IH [id number] [facility] Last Admin: 01/29/17 13:48 Dose: Not Given Atorvastatin Calcium (Lipitor) 40 mg PO DAILY [facility] Last Admin: 01/29/17 10:03 Dose: 40 mg Carvedilol (Coreg) 3.125 mg PO BID [facility] Last Admin: 01/29/17 10:03 Dose: 3.125 mg Docusate Sodium (Colace) 100 mg PO DAILY [facility] Last Admin: 01/29/17 10:03 Dose: 100 mg Ergocalciferol (Drisdol 50,000 Intl Units Cap) 1 cap PO Q48H [facility] Stop: 02/18/17 19:31 Last Admin: 01/27/17 20:52 Dose: 1 cap Hydromorphone HCl (Dilaudid) 0.5 mg IVP Q6H PRN PRN Reason: Pain, moderate (4-7) Vancomycin HCl 1.5 gm/ Sodium (Chloride) 500 mls @ 250 mls/hr IVPB Q12H [facility]UN PRN Reason: Protocol Last Admin: 01/29/17 10:07 Dose: 250 mls/hr Sodium Chloride (Sodium Chloride 0.9%) 1,000 mls @ 150 mls/hr IV .Q6H40M [facility] Last Admin: 01/29/17 12:54 Dose: Not Given Meropenem (Merrem Iv 1 Gm Premix) 50 mls @ 100 mls/hr IVPB Q8 [facility] PRN Reason: Protocol Stop: 02/02/17 23:16 Last Admin: 01/29/17 14:41 Dose: 100 mls/hr Insulin Human Lispro (Humalog Med) 0 units SC ACHS [facility] PRN Reason: Protocol Last Admin: 01/29/17 12:35 Dose: Not Given Insulin Human NPH (Humulin N) 14 units SC DAILY@1745 [facility] Last Admin: 01/28/17 18:13 Dose: 14 units Insulin Human NPH (Humulin N) 18 units SC ACB [facility] Last Admin: 01/29/17 10:05 Dose: 18 units Levalbuterol HCl (Xopenex) 0.63 mg IH [id number] [facility] Last Admin: 01/29/17 13:45 Dose: 0.63 mg Nicotine (Nicoderm Cq) 1 patch TD DAILY PRN PRN Reason: URGE TO SMOKE Last Admin: 01/29/17 10:06 Dose: 1 patch Ondansetron HCl (Zofran Inj) 4 mg IVP Q6H PRN PRN Reason: Nausea/Vomiting Oxycodone HCl (Oxycodone Immediate Release Tab) 30 mg PO TID PRN PRN Reason: Pain, moderate (4-7) Last Admin: 01/29/17 12:53 Dose: 30 mg Pantoprazole Sodium (Protonix Ec Tab) 40 mg PO DAILY [facility] Last Admin: 01/29/17 10:05 Dose: 40 mg Polyethylene Glycol (Miralax) 17 gm PO BID [facility] Last Admin: 01/29/17 10:06 Dose: 17 gm Pregabalin (Lyrica) 75 mg PO BID [facility] Last Admin: 01/29/17 10:06 Dose: 75 mg Ursodiol (Actigall) 300 mg PO BID [facility] Last Admin: 01/29/17 10:05 Dose: 300 mg Venlafaxine HCl (Effexor Xr) 75 mg PO DAILY [facility] Last Admin: 01/29/17 10:04 Dose: 75 mg - Labs Labs: 01/29/17 05:40 01/29/17 05:40 PT 29.8 SECONDS (9.4-12.5) H 01/29/17 05:40 INR 2.66 (0.93-1.08) H 01/29/17 05:40 APTT 35.9 Seconds (25.1-36.5) 01/29/17 05:40 - Constitutional Appears: No Acute Distress - Head Exam Head Exam: ATRAUMATIC, NORMAL INSPECTION, NORMOCEPHALIC - Eye Exam Eye Exam: EOMI, Normal appearance, PERRL - ENT Exam ENT Exam: Mucous Membranes Moist - Neck Exam Additional comments: supple - Respiratory Exam Respiratory Exam: Clear to Ausculation Bilateral, NORMAL BREATHING PATTERN. absent: Rales, Rhonchi, Wheezes - Cardiovascular Exam Cardiovascular Exam: REGULAR RHYTHM, +S1, +S2 - GI/Abdominal Exam GI & Abdominal Exam: Soft, Normal Bowel Sounds. absent: Tenderness - Exam Exam: Scrotal Swelling (erythema, warmth and swelling better than yesterday) - Extremities Exam Extremities Exam: Normal Capillary Refill, Pedal Edema (slight). absent: Calf Tenderness - Neurological Exam Neurological Exam: Alert, Awake, Oriented x3 - Psychiatric Exam Psychiatric exam: Normal Affect, Normal Mood - Skin Skin Exam: Dry, Warm Assessment and Plan - Assessment and Plan (Free Text) Plan: Mr Waggoner, 41 year old morbidly obese male with BMI of 44, with PMHx of DM , HTN, COPD, SABI, active tobacco use, hx pulmonary emboli, admitted with a pain , swollen scrotum x several days. He had an abscess on L buttocks which pt punctures and drained and it because worse and spread to his scrotum. On 01/26, He had an incision and drainage of (1) perirectal abscess in perineal area and ( 2) scrotal abscess. Post op, Pt developed a low grade fever, which resolved. Post-op diagnosis was necrotizing fasciitis of perineum and scrotal wall, trauma , and urethral stricture. He was downgraded from ICU to med/surg floor. His urine grows coagulase neg staphylocccus, gram (+) cocci. His Wound culture grows coagulase neg staphylocccus. COntinue pain management, infection treatment , and physical therapy. Fornier gangrene, I&D s/p POD 2 Perirectal and scrotal abscesses possibly from Epididymitis, R - Vancomycin and meropenem - coagulase neg staphylocccus - maintain fernandes per urology, local wound care - pain: dilaudid 0.5q6 PRN; Oxycodone IR 30 TID PRN - PICC consult UTI vs gram (+) cocci asymptomatic bactereuria - on ABX per ID Cholethiasis, asymptomatic - Added ursodiol (actigall 300 BID) DM, A1C 6 - NPH 18u ACB, 14u ACD, regular insulin sliding -med HTN CAD risk - Carvedilol 3.125 BID, Lipitor 40, vit D Hx pulmonary emboli on Warfarin, goal INR 2-3. 2.66 today Hx COPD, SABI Smoker, tobacco dependent - Acetylcystein, xopenex - nicoderm - HOLD WARFARIN Morbid obesity - Dietitian referral Chronic pain - lyrica bid, Effecxor XR Qd GI regimen - Colace qd, miralax bid, zofran prn PVX - protonix, AE hose, SCD FEN - NS@150, HHD, Consult - Endocrin - Dr. Mc - Surgery - Dr. Lara - Urol - Dr. Sylvester Andrews - ID - Dr. Marx - IR - Dr. Manzano CT A/P IV (01/26) - scrotal fluid with surrounding tissue - gas in scrotum extending to perineum - distended gallbladder with sludge - fatty liver, hepatomegaly, splenomegaly - enlarge ingunal lymph nodes b/l but no retroperitoneal lymph nodes Testicular U/S - increase vasculular flow to R epididymis - b/l epididymal cyst, enlarged epididymal heads, heterogenoeous - no testicular torsion EKG - NSR 95, RBBB, QTc 500 Abd u/s - gb sludge LE u/s - no dvt CXR on admission - no acive dz 01/27 - no active dz 01/28 - no active dz s/r/d/w Dr. Cummins <Dakotah Cummins U - Last Filed: 02/07/17 14:52> Objective - Vital Signs/Intake and Output Vital Signs (last 24 hours): Temp Pulse Resp BP Pulse Ox 97.8 F 57 L 18 137/73 96 02/02/17 08:15 02/02/17 09:13 02/02/17 08:15 02/02/17 09:13 02/02/17 08:15 - Labs Labs: 02/02/17 05:30 02/02/17 05:30 PT 23.8 SECONDS (9.4-12.5) H 02/02/17 05:30 INR 2.13 (0.93-1.08) H 02/02/17 05:30 APTT 35.0 Seconds (25.1-36.5) 02/02/17 05:30 Attending/Attestation - Attestation I have personally seen and examined this patient.: Yes I have fully participated in the care of the patient.: Yes I have reviewed all pertinent clinical information, including history, physical exam and plan: Yes Notes (Text): Please read/see my dictated notes.
[2017-01-29] MEDS: Ergocalciferol 50,000 Intl Units Cap PO SCH (18:41)
[2017-01-29] MEDS: HYDROmorphone 0.5 mg/0.5 ml ISec IVP PRN (18:41)
--- NOTE | 2017-01-29 19:21 | PN ---
ENDOCRINOLOGY FOLLOWUP NOTE DATE: LOCATION: Room 370, bed 2. This is a 41-year-old male presenting here with uncontrolled type 2 insulin-requiring diabetes and hyperglycemic accelerations which have improved accordingly as noted thereof. He also has a perirectal and scrotal abscesses and underwent incision and drainage procedure and currently IV antibiotic was given. His glucose values have improved and have ranged from 108 to 122 mg/dL. The latest chemistry shows a BUN of 10, sodium 133, potassium 3.8, chloride 103, CO2 25, glucose 123, and creatinine 0.7. At this time, we will continue to modify basal insulin as given with Humulin NPH given as 18 units before breakfast and 14 units before dinner as ordered. We will continue the Humalog coverage scale as given. We will obtain serial chemistry and supplement accordingly as need. We will follow with you. Kirti Mc MD
--- NOTE | 2017-01-29 19:54 | CT ---
EXAM: CT Abdomen and Pelvis With Intravenous Contrast EXAM DATE/TIME: 01/29/2017 1:04 PM CLINICAL HISTORY: The patient age is 41 years old and is male; Condition or disease; Abscess; Abscess location: Scrotum/rectum; Prior surgery; Surgery date: Post-operative (0-2 days); Surgery type: Post op, residual rectal/scrotal abscess Facility exam id and description: Ct abdpelc abd pelvis po iv contrast TECHNIQUE: Axial computed tomography images of the abdomen and pelvis with intravenous contrast. All CT scans at this facility use one or more dose reduction techniques, viz.: automated exposure control; ma/kV adjustment per patient size (including targeted exams where dose is matched to indication; i.e. head); or iterative reconstruction technique. Coronal and sagittal reformatted images were created and reviewed. CONTRAST: 140 mL of [id number] administered intravenously. COMPARISON: CT - ABD PELVIS IV CONTRAST ONLY 2017-01-26 18:57 FINDINGS: Lower thorax: There is increased density dependently within the lung bases bilaterally, suggestive of atelectasis. ABDOMEN: Liver: There is hypodense fatty infiltration of the liver. Liver measures 22.8 cm in the craniocaudad dimension, consistent with hepatomegaly. Gallbladder and bile ducts: The gallbladder is again distended with layering sludge and probable gallstones. Pancreas: Normal contour, without acute peripancreatic stranding. Spleen: There is splenomegaly. The spleen measures 14.8 cm in the AP dimension. Adrenals: No mass. Kidneys and ureters: Mild nonspecific bilateral perinephric standing is seen. There is no hydronephrosis bilaterally. Stomach and bowel: Significant fecal material is identified within the colon and rectum. Appendix: No findings to suggest acute appendicitis. PELVIS: Bladder: A Nava catheter is identified within the bladder, which is decompressed. Reproductive: Unremarkable as visualized. ABDOMEN and PELVIS: Intraperitoneal space: There is mild perihepatic and perisplenic ascites, new compared to the prior study. Bones/joints: Degenerative changes are identified within the visualized lower thoracic spine. Soft tissues: Significant scrotal fluid and surrounding soft tissue swelling are again visualized, similar to the prior study. There are multiple foci of gas within the scrotum extending towards the perineum. These findings are concerning for scrotal abscess or necrotizing fasciitis. There is fatty infiltration of the ventral abdominal wall. Vasculature: No abdominal aortic aneurysm. Lymph nodes: There is bilateral inguinal lymphadenopathy again visualized. A left inguinal lymph node measures 2.3 x 2.1 cm. Mildly enlarged intrapelvic lymph nodes are also visualized. There is no significant retroperitoneal lymphadenopathy. Tubes, lines and devices: A new scrotal drain is visualized. IMPRESSION: 1. Significant scrotal fluid and surrounding soft tissue swelling are again visualized, similar to the prior study. There are multiple foci of gas within the scrotum extending towards the perineum. These findings are concerning for scrotal abscess or necrotizing fasciitis. 2. A new scrotal drain is visualized. 3. There is bilateral inguinal lymphadenopathy again visualized. Mildly enlarged intrapelvic lymph nodes are also visualized. 4. There is mild perihepatic and perisplenic ascites, new compared to the prior study. 5. There is hypodense fatty infiltration of the liver. Hepatomegaly. 6. There is splenomegaly. 7. The gallbladder is again distended with layering sludge and probable gallstones. 8. Incidental/non-acute findings are described above.
[2017-01-29] MEDS ORDERED: Potassium Chloride 20 mEq ER Tab PO ONE (22:57)
--- NOTE | 2017-01-29 23:46 | PN ---
DATE: 01/29/2017 SUBJECTIVE: The patient is in room 370, bed 2, seen earlier this morning. He states that he is having pain all over. He is requesting significant amount of pain medication. He had no fevers. He is having pain in his arms, in his legs, his back, chronic pain syndrome. PHYSICAL EXAMINATION: VITAL SIGNS: Temperature is 98, blood pressure is 120/60, respiratory rate 20, heart rate of 64. HEENT: Unremarkable. NECK: Supple. LUNGS: Decreased breath sounds. HEART: Normal S1 and S2. ABDOMEN: Soft and nontender. LABORATORY DATA: Examination reveals a white count of 13,000, hemoglobin 10, platelets 222. Chemistry reveal the patient to have a BUN of 10 and creatinine of 0.7. Urinalysis is noted. HIV is negative. Hepatitis core, negative. The patient does have from the scrotal cultures, coag-negative. Also his urine culture has a coag-negative Staph. Also in addition to the scrotal cultures, the urine culture, coag-negative Staph is pansensitive. It is resistant to oxacillin. It is methicillin resistant coagulase-negative Staphylococcus. Review of the orders reveals the patient to be on meropenem and vancomycin. MEDICATIONS: Review of medications, the patient received vancomycin at 9 a.m. and 9 p.m. ASSESSMENT AND PLAN: A 41-year-old male with morbid obesity, body mass index of 44 with diabetes mellitus, who was admitted for scrotal pain, perineal pain and found to have sepsis with poor naris with methicillin resistant coagulase-negative Staphylococcus, currently on high dose vancomycin and meropenem with leukocytosis which appears to be improving, mainly per the surgical intervention. If the leukocytosis does not continue to improve, we will order vancomycin trough level at 8 o'clock tomorrow morning, an hour before the 9 o'clock dose. May need to change from vancomycin based on his vancomycin trough level. The patient is on Effexor which is venlafaxine, which is a contraindication to use Zyvox in drug-drug interaction, we found that at home. We will pursue further recommendation upon availability of further results. Barak Marx MD
[2017-01-30] MEDS: HYDROmorphone 0.5 mg/0.5 ml ISec IVP PRN ×4 (00:37→23:50)
[2017-01-30] MEDS: Sodium Chloride 0.9% 1,000 ML IV SCH ×4 (00:45→22:00)
[2017-01-30] MEDS: Acetylcysteine 20% Inhal Soln (4ml) IH SCH ×4 (01:31→20:16)
[2017-01-30] MEDS: Levalbuterol 0.63 MG/3 ML Inhal Soln UD IH SCH ×4 (01:31→20:16)
--- NOTE | 2017-01-30 03:53 | PN ---
DATE: 01/29/2017 SUBJECTIVE: The patient is seen lying in the bed in room 370, bed 2. The patient wants his oxycodone resumed. The patient does not want Duragesic patch and wants his home oxycodone resumed for his pain control. The patient is seen lying in the bed. The patient was seen with the nurse. The patient's overnight nurse's notes were reviewed. The patient complained of lower abdominal groin pain. PHYSICAL EXAMINATION: VITAL SIGNS: T-max is 98.9; 64, 68, 78 blood pressure in the last 24 hours, averaging systolic 110s, diastolic in 50s and 60s; respiration 20; O2 saturation 99% on oxygen. GENERAL: The patient is seen lying in the bed. HEENT: Head examination, normocephalic, atraumatic. HEENT examination shows pinkish pale conjunctivae. Anicteric sclerae. Dry oral mucosa. No neck rigidity. CHEST: Examination kyphosis. LUNGS: Examination shows positive rhonchi bilaterally laterally and at bases. ABDOMEN: Protuberant, obese. Positive umbilical hernia. Positive diffuse lower abdominal tenderness. GENITALIA: Examination shows positive scrotal drain. Positive decreasing swelling and erythema of the scrotum. Positive Nava catheter. EXTREMITIES: Shows no pitting edema, trace swelling. Positive varicose veins. MUSCULOSKELETAL: Examination shows a body mass index of 45. NEUROLOGIC: The patient is alert, awake, oriented x3, he is able to move upper and lower extremity without assistance. Neuro examination is limited. Gait examination could not be tested. DIAGNOSTICS: On 01/29, WBC 13.1, hemoglobin/hematocrit 10.4 and 31.4, platelet 223. Granulocytes 77% segs. PT 29.8, INR 2.66. Sodium 133, potassium 3.8, chloride 103, CO2 of 25, anion gap 9, BUN 10, creatinine 0.7, GFR greater than 60, glucose 123, lactic acid 1.0, calcium 8.7, magnesium 1.7, direct bilirubin 0.7, alkaline phosphatase 243, albumin 2.9. Vitamin D 19.1, triglyceride 255, cholesterol 161, HDL 24. Microbiology cultures, MRSA nares negative. Scrotum cultures, coagulase-negative staph. Urine cultures, coagulase-negative staph. The patient had a repeat CAT scan of the abdomen and pelvis ordered by surgical team. It shows increasing bibasilar atelectasis, fatty liver with hepatomegaly, distended gallbladder with layering sludge and probable gallstone, splenomegaly, bilateral perinephric stranding, colon and rectal fecal stasis, Nava catheter, perihepatic and perisplenic ascites, degenerative joint disease of the thoracic spine, significant scrotal fluid and surrounding soft tissue swelling similar to the prior CAT scan with multiple foci of gas within the scrotum extending towards the perineum with possible scrotal abscess and necrotizing fasciitis and fatty infiltration of the ventral abdominal wall, bilateral inguinal lymphadenopathy, and enlarged intrapelvic adenopathy. CAT scan report noted. EKG results noted. It shows right bundle-branch block pattern. The patient was seen by Endocrinology, Surgery, and Infectious Disease. IMPRESSION AND PLAN: 1. Scrotal, perirectal, perineal abscess with persistent scrotal abscess and necrotizing fasciitis. 2. Increasing bibasilar atelectasis and increasing bibasilar densities. 3. Hepatosplenomegaly with fatty infiltration of the liver and hepatic steatosis. 4. Gallbladder sludge and probable cholelithiasis with distended gallbladder. 5. Hepatosplenomegaly. 6. Nonspecific bilateral perinephric stranding. 7. Colonic rectal fecal stasis. 8. Perihepatic and perisplenic ascites. 9. 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 10. Significant periscrotal fluid and soft tissue swelling, unchanged from prior studies. 11. Multiple foci of gas within the scrotum extending towards the perineum, suggestive of scrotal abscess and necrotizing fasciitis. 12. Fatty infiltration of the ventral abdominal wall. 13. Bilateral inguinal lymphadenopathy and intrapelvic lymphadenopathy. 14. Super morbid obesity. 15. Deconditioning. 16. Transient hypotension. 17. History of hypertension. 18. 19. Narcotic dependent pain syndrome. 20. Leukocytosis with granulocytosis. 21. Elevated erythrocyte sedimentation rate of 98. 22. Normocytic anemia. 23. 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 24. Insulin-requiring diabetes mellitus, well controlled with hemoglobin A1c of 6.0. 25. Hypovitaminosis D. 26. Hypertriglyceridemia with decreased HDL of 24. 27. Elevated C-reactive protein of greater than 15. 28. Lactic acidosis. 29. Hyperprocalcitonemia. 30. Proteinuria, glycosuria, microscopic hematuria, pyuria, bacteriuria. 31. Coagulase-negative Staphylococcus aureus scrotal abscess. 32. Coagulase-negative urinary tract infection. 33. Status post 2 units of fresh frozen plasma transfusion. 34. Right bundle-branch block. 35. Questionable volume overload with increasing bibasilar densities and atelectasis. 36. Questionable cholelithiasis with gallbladder sludge and distended gallbladder. 37. Right epididymitis with enlarged heterogeneous right epididymal head with hypoechoic cyst and an increased vascular flow within the right epididymis. 38. Enlarged left epididymal head with left epididymal head hypoechoic cyst. 39. Scrotal edema and swelling with scrotal abscess. 40. Hepatic steatosis and fatty infiltration of the liver with hepatomegaly. 41. History of narcotic dependent pain syndrome. 42. Insulin-requiring type 2 diabetes mellitus. 43. Coumadin-dependent pulmonary embolism and deep venous thrombosis. 44. Dyslipidemia. 45. Depression. 46. Hypokalemia. 47. Morbid obesity. 48. Constipation, fecal retention. 49. Gait dysfunction. 1. Status post incision and drainage of perirectal abscess. 2. Necrotizing fasciitis. 3. Severe scrotal wall thickening and swelling. 4. Right epididymitis with increased vascular flow. 5. Bilateral epididymal cyst with enlargement of the bilateral epididymal heads heterogenous echogenicity 6. Enlarged right epididymal head and with heterogenous echogenicity with hypoechoic cyst. 7. Right epididymitis. 8. Fatty infiltration of the liver with hepatic steatosis. 9. Hepatosplenomegaly. 10. Gallbladder sludge without cholelithiasis an d cholecystitis. 11. Mild cardiomegaly. 12. Right bundle-branch block. 13. Nicotine addiction and dependence. 14. Narcotic dependent pain syndrome. 15. Multiple perineal scrotal abscess. 16. Sepsis. 17. Insulin-requiring diabetes mellitus. 18. Low grade fever. 19. Hypotension and history of hypertension. 20. Leukocytosis with granulocytosis. 21. Normocytic anemia. 22. Elevated erythrocyte sedimentation rate of 98. 23. 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 24. Hyperglycemia. 25. Hyponatremia. 26. Hypomagnesemia. 27. Elevated alkaline phosphatase, etiology undetermined. 28. Hypertriglyceridemia and hypercholesteremia with decreased HDL. 29. Lactic acidosis. 30. Proteinuria, glycosuria and microscopic hematuria, and bacteriuria 31. Super morbid obesity with body mass index of 45. 32. Perirectal abscess status post incision and drainage postop day number 1. 33. Uncontrolled decompensated type 2 insulin-requiring diabetes mellitus. 34. 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 35. 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 36. Status post incision and drainage washout and packing of the perirectal and scrotal abscess. 1. 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 2. Bilateral adenopathy with intrapelvic adenopathy. 3. Distended gallbladder with gallbladder sludge and possible cholelithiasis. 4. Hepatic steatosis and hepatomegaly and fatty infiltration of the liver. 5. Hepatosplenomegaly. 6. Super morbid obesity. 7. Questionable and possible perineal and scrotal abscess. 8. Bibasilar atelectasis, right more than the left. 9. Hepatic steatosis and fatty infiltration of the liver and hepatic splenomegaly. 10. Distended gallbladder with gallbladder sludge and probable gallstone. 11. Splenomegaly. 12. Bilateral perinephric stranding. 13. Fecal retention and fecal stasis. 14. Prostatic calcification. 15. Degenerative joint disease of the bones and the spine. 16. Inguinal and anterior pelvic soft tissue swelling extending into the scrotum with multiple foci of gas within the scrotum extending towards the perineum suggestive of necrotizing infection versus necrotizing fasciitis. 17. Fat containing ventral abdominal hernia. 18. Inguinal and intrapelvic lymphadenopathy. 19. Sepsis. 20. Fever. 21. Tachycardia. 22. Leukocytosis with granulocytosis. 23. Normocytic anemia. 24. Coumadin dependent, history of deep venous thrombosis and pulmonary embolism. 25. Insulin-requiring and dependent diabetes mellitus. 26. Hyponatremia. 27. Mild hypochloremia. 28. Hyperglycemia. 29. Lactic acidosis. 30. Hypertriglyceridemia, hypercholesteremia with decreased HDL. 31. Proteinuria, glycosuria, hematuria, pyuria and bacteriuria. 32. A negative blood type. 33. Nicotine addiction and dependence. 34. History of chronic narcotic dependent pain syndrome. 35. Hypovitaminosis D. 36. History of depression. 37. Diabetic neuropathy. 38. Hypokalemia. PLAN: At this time, the patient has been ordered serial labs, daily PT and PTT. The patient has been ordered repeat urine cultures. The patient has been ordered consultation with, 1. Endocrinology. 2. Surgery. 3. Urology. 4. Infectious Disease. 5. Interventional Radiology. CURRENT MEDICATIONS: 1. Mucomyst nebulizer 20% 4 mL with Xopenex nebulizer 0.63 mg every 6 hours. 2. Actigall 300 mg twice a day. 3. Colace 100 mg three times a day. 4. Coreg 3.125 twice a day. 5. The patient's narcotic pain medicine adjusted and modified to Dilaudid 0.5 mg IV q.6 p.r.n. 6. Drisdol at 50,000 units three times a week. 7. Effexor 75 mg daily. 8. Humalog medium dose sliding scale coverage a.c. and h.s. 9. NPH 14 units subcutaneous daily with supper, NPH 18 units with breakfast. 10. The patient is started on K-Dur 20 mEq daily. 11. The patient is ordered Lasix 40 mg IV x1 dose. 12. Lipitor 40 mg daily. 13. Lyrica 75 mg twice a day. 14. Meropenem 1 gm IV q.8. 15. MiraLAX 17 gm twice a day. 16. Nicotine patch 21 mg daily. 17. The patient is on oxycodone immediate release 30 mg t.i.d. p.r.n. 18. Protonix 40 mg p.o. daily. 19. Vancomycin 1.5 gm IV q.12. 20. Zofran 4 mg IV q.6 p.r.n. 21. Incentive spirometry. The patient will be ordered chest PT. The patient has been ordered incentive spirometry q.2 hours. The patient has been ordered out of bed to chair, SCDs, CHRISTIAN stockings, occupational therapy, physical therapy ordered. The patient updated about his condition, diagnosis, treatment plan, management plan at length, and all questions and concerns answered. The patient has been followed by surgical team regarding the repeat CAT scan which shows persistent scrotal abscess and necrotizing fasciitis. We will await further surgical intervention. The patient updated about his condition, diagnosis, test results etc., in detail at length and all questions and concerns answered. Dictated and electronically signed, not read. Dakotah Cummins MD MTDD
[2017-01-30] MEDS: Meropenem IV 1 gm in NS 50 ML IVPB SCH ×3 (05:32→22:30)
[2017-01-30] MEDS: oxyCODONE 30 mg Immediate Release Tab PO PRN ×3 (05:32→19:24)
[2017-01-30 06:47] LABS: INR 2.01 (0.93-1.08); PARTIAL THROMBOPLASTIN TIME 34.1 Seconds (25.1-36.5)
[2017-01-30 06:57] LABS: BASO # 0.03 K/mm3 (0.0-2.0); BASO % 0.3 % (0.0-3.0); EOS # 0.2 (0.0-0.7); EOS % 1.8 % (1.5-5.0); GRAN # 7.04 (1.4-6.5); GRAN % 71.9 % (50.0-68.0); LYMPH # 1.9 (1.2-3.4); LYMPH % 19.2 % (22.0-35.0); MEAN CELL VOLUME 89.9 fl (80.0-105.0); MEAN CORPUSCULAR HEMOGLOBIN 28.6 pg (25.0-35.0); MEAN CORPUSCULAR HGB CONC 31.8 g/dl (31.0-37.0); MEAN PLATELET VOLUME 10.1 fl (7.0-11.0); MONO # 0.7 (0.1-0.6); MONO % 6.8 % (1.0-6.0); RED CELL DISTRIBUTION WIDTH 17.3 % (11.5-14.5); WHITE BLOOD COUNT 9.8 10^3/ul (4.5-11.0)
[2017-01-30 07:35] LABS: ALB/GLOB RATIO 0.8 (1.1-1.8); ALKALINE PHOSPHATASE 204 U/L (38-126); ALT/SGPT 34 U/L (7-56); AST/SGOT 34 U/L (17-59); BILIRUBIN,DIRECT 0.5 mg/dL (0.0-0.4); BILIRUBIN,TOTAL 0.5 mg/dL (0.2-1.3); BLOOD UREA NITROGEN 7 mg/dL (7-21); CALCIUM 8.9 mg/dL (8.4-10.5); CARBON DIOXIDE 23 mmol/L (21-33); CHLORIDE 105 mmol/L (98-107); GFR AFRICAN-AMERICAN > 60; GLUCOSE,RANDOM 115 mg/dL (70-110); MAGNESIUM 1.5 mg/dL (1.7-2.2); POTASSIUM 3.9 mmol/L (3.6-5.0); SODIUM 137 mmol/L (132-148); TOTAL PROTEIN 6.4 g/dL (5.8-8.3)
--- NOTE | 2017-01-30 08:05 | CP.PCM.PN ---
Subjective - Date & Time of Evaluation Date of Evaluation: 01/30/17 Time of Evaluation: 06:45 - Subjective Subjective: General Surgery- Dr. Lara Patient seen and examined at bedside this AM. No acute events overnight and per nursing notes. Pt feels better. Patient has not had a BM, +flatus. Denies Nausea ,vomiting, diarrhea, chest pain, shortness of breath. one ruthie removed at bedside during this encounter Objective - Vital Signs/Intake and Output Vital Signs (last 24 hours): Temp Pulse Resp BP Pulse Ox 98.9 F 71 20 116/68 99 01/29/17 16:00 01/29/17 17:20 01/29/17 16:00 01/29/17 17:20 01/29/17 16:00 Intake and Output: 01/30/17 01/30/17 06:59 18:59 Intake Total 5160 Output Total 3450 Balance 1710 - Medications Medications: Current Medications Acetylcysteine (Acetylcysteine 20%) 4 ml IH [id number] [facility] Last Admin: 01/30/17 01:31 Dose: Not Given Atorvastatin Calcium (Lipitor) 40 mg PO DAILY [facility] Last Admin: 01/29/17 10:03 Dose: 40 mg Carvedilol (Coreg) 3.125 mg PO BID [facility] Last Admin: 01/29/17 17:20 Dose: 3.125 mg Docusate Sodium (Colace) 100 mg PO TID [facility] Ergocalciferol (Drisdol 50,000 Intl Units Cap) 1 cap PO Q48H [facility] Stop: 02/18/17 19:31 Last Admin: 01/29/17 18:41 Dose: 1 cap Hydromorphone HCl (Dilaudid) 0.5 mg IVP Q6H PRN PRN Reason: Pain, moderate (4-7) Last Admin: 01/30/17 00:37 Dose: 0.5 mg Vancomycin HCl 1.5 gm/ Sodium (Chloride) 500 mls @ 250 mls/hr IVPB Q12H [facility] PRN Reason: Protocol Last Admin: 01/29/17 21:58 Dose: 250 mls/hr Sodium Chloride (Sodium Chloride 0.9%) 1,000 mls @ 150 mls/hr IV .Q6H40M [facility] Last Admin: 01/30/17 00:45 Dose: 150 mls/hr Meropenem (Merrem Iv 1 Gm Premix) 50 mls @ 100 mls/hr IVPB Q8 [facility] PRN Reason: Protocol Stop: 02/02/17 23:16 Last Admin: 01/30/17 05:32 Dose: 100 mls/hr Magnesium Sulfate 2 gm/ Sodium (Chloride) 104 mls @ 102 mls/hr IVPB Q2H [facility] Stop: 01/30/17 10:47 Insulin Human Lispro (Humalog Med) 0 units SC ACHS [facility] PRN Reason: Protocol Last Admin: 01/29/17 21:25 Dose: Not Given Insulin Human NPH (Humulin N) 14 units SC DAILY@1745 [facility] Last Admin: 01/29/17 17:20 Dose: 14 units Insulin Human NPH (Humulin N) 18 units SC ACB [facility] Last Admin: 01/29/17 10:05 Dose: 18 units Levalbuterol HCl (Xopenex) 0.63 mg IH [id number] [facility] Last Admin: 01/30/17 01:31 Dose: Not Given Magnesium Oxide (Mag-Ox) 400 mg PO DAILY [facility] Nicotine (Nicoderm Cq) 1 patch TD DAILY [facility] Ondansetron HCl (Zofran Inj) 4 mg IVP Q6H PRN PRN Reason: Nausea/Vomiting Oxycodone HCl (Oxycodone Immediate Release Tab) 30 mg PO TID PRN PRN Reason: Pain, moderate (4-7) Last Admin: 01/30/17 05:32 Dose: 30 mg Pantoprazole Sodium (Protonix Ec Tab) 40 mg PO DAILY [facility] Last Admin: 01/29/17 10:05 Dose: 40 mg Polyethylene Glycol (Miralax) 17 gm PO BID [facility] Last Admin: 01/29/17 17:20 Dose: 17 gm Potassium Chloride (K-Dur 20 Meq Er Tab) 20 meq PO BRK [facility] Pregabalin (Lyrica) 75 mg PO BID [facility] Last Admin: 01/29/17 17:20 Dose: 75 mg Ursodiol (Actigall) 300 mg PO BID [facility] Last Admin: 01/29/17 17:20 Dose: 300 mg Venlafaxine HCl (Effexor Xr) 75 mg PO DAILY [facility] Last Admin: 01/29/17 10:04 Dose: 75 mg - Labs Labs: 01/30/17 05:30 01/30/17 05:30 PT 22.4 SECONDS (9.4-12.5) H 01/30/17 05:30 INR 2.01 (0.93-1.08) H 01/30/17 05:30 APTT 34.1 Seconds (25.1-36.5) 01/30/17 05:30 - Constitutional Appears: Non-toxic, No Acute Distress - Head Exam Head Exam: ATRAUMATIC - Eye Exam Eye Exam: EOMI. absent: Scleral icterus - ENT Exam ENT Exam: Mucous Membranes Moist - Respiratory Exam Respiratory Exam: NORMAL BREATHING PATTERN. absent: Accessory Muscle Use, Respiratory Distress - Cardiovascular Exam Cardiovascular Exam: +S1, +S2 - GI/Abdominal Exam GI & Abdominal Exam: Distended, Soft. absent: Guarding, Rigid, Tenderness Additional comments: umbilical hernia, recuts diasthesis - Neurological Exam Neurological Exam: Alert, Awake, Oriented x3 - Psychiatric Exam Psychiatric exam: Normal Affect - Skin Skin Exam: Warm Additional comments: scrotal ruthie in place. induration along scrotum. no palpable crepitus Assessment and Plan - Assessment and Plan (Free Text) Assessment: 41M perineal abscess s/p I&D POD #[address] scan improved from previous imaging Plan: - plan to remove final ruthie tomorrow - c/w abx - pain control PRN - urology recs - c/w medical management per primary - further recs per Dr. Lara surgical attending Christoph Peters PGY1
[2017-01-30] MEDS: Insulin Lispro (humaLOG) MEDIUM Coverage SC SCH ×4 (08:32→22:20)
[2017-01-30] MEDS: Magnesium Sulfate 2 GM in Sodium Chloride 0.9% 100 ML IVPB SCH ×2 (08:40→13:36)
[2017-01-30] MEDS: Potassium Chloride 20 mEq ER Tab PO SCH (08:40)
[2017-01-30] MEDS: Insulin Human NPH 1 UNITS/0.01 ML SC SCH ×2 (08:40→17:49)
[2017-01-30] MEDS: Pantoprazole 40 mg EC Tab PO SCH (10:53)
[2017-01-30] MEDS: Magnesium Oxide 400 mg Tab UD PO SCH (10:53)
[2017-01-30] MEDS: POLYETHYLENE GLYCOL 3350 17 GM/Dose PACKET PO SCH ×2 (10:53→17:52)
[2017-01-30] MEDS: Venlafaxine 75 mg ER Cap PO SCH (10:53)
[2017-01-30] MEDS: Vancomycin 1.5 GM in Sodium Chloride 0.9% 500 ML IVPB SCH ×2 (10:54→21:09)
[2017-01-30] MEDS ORDERED: Magnesium Sulfate 2 GM in Sodium Chloride 0.9% 100 ML IVPB SCH (12:15)
[2017-01-30] MEDS ORDERED: Lidocaine 2% Inj (20ml) ONE (12:58)
--- NOTE | 2017-01-30 14:59 | VASCULAR ---
PROCEDURE: Ultrasound and fluoroscopically placed left upper extremity PICC line. HISTORY: Necrotizing fasciitis. Status post surgery. Long-term IV antibiotics. Needs PICC line. PHYSICIAN(S): Fidel Manzano MD. TECHNIQUE: The relative risks and indications of the procedure were explained to the patient and consent obtained. The patient was placed supine on the arteriogram table and the left arm prepped and draped in the usual sterile fashion. A tourniquet was applied to the left axilla. 1% Xylocaine was used to anesthetize the skin and soft tissues at the puncture site above the elbow. The left basilic vein was punctured under direct ultrasound guidance with a micropuncture set. A 0.018 guidewire was advanced centrally and used to measure the length to the SVC/RA junction. A 5 [place] single-lumen PICC line 55 cm long was advanced to the SVC/RA junction. The catheter was flushed and secured. The patient tolerated the procedure well. IMPRESSION: 1. Ultrasound and fluoroscopically placed left upper extremity PICC line. A 5 [place] single-lumen PICC line 55 cm long was advanced to the SVC/RA junction.
--- NOTE | 2017-01-30 16:52 | CP.PCM.PN ---
Subjective - Date & Time of Evaluation Date of Evaluation: 01/30/17 Time of Evaluation: 10:45 - Subjective Subjective: Comfortable, no fevers overnight, not in distress. Objective - Vital Signs/Intake and Output Vital Signs (last 24 hours): Temp Pulse Resp BP Pulse Ox 98 F 71 19 113/55 L 97 01/30/17 08:58 01/29/17 17:20 01/30/17 08:58 01/30/17 08:58 01/30/17 08:58 Intake and Output: 01/30/17 01/30/17 06:59 18:59 Intake Total 5160 Output Total 3450 Balance 1710 - Medications Medications: Current Medications Acetylcysteine (Acetylcysteine 20%) 4 ml IH [id number] [facility] Last Admin: 01/30/17 08:29 Dose: Not Given Atorvastatin Calcium (Lipitor) 40 mg PO DAILY [facility] Last Admin: 01/29/17 10:03 Dose: 40 mg Carvedilol (Coreg) 3.125 mg PO BID [facility] Last Admin: 01/29/17 17:20 Dose: 3.125 mg Docusate Sodium (Colace) 100 mg PO TID [facility] Ergocalciferol (Drisdol 50,000 Intl Units Cap) 1 cap PO Q48H [facility] Stop: 02/18/17 19:31 Last Admin: 01/29/17 18:41 Dose: 1 cap Hydromorphone HCl (Dilaudid) 0.5 mg IVP Q6H PRN PRN Reason: Pain, moderate (4-7) Last Admin: 01/30/17 08:40 Dose: 0.5 mg Vancomycin HCl 1.5 gm/ Sodium (Chloride) 500 mls @ 250 mls/hr IVPB Q12H [facility] PRN Reason: Protocol Last Admin: 01/29/17 21:58 Dose: 250 mls/hr Sodium Chloride (Sodium Chloride 0.9%) 1,000 mls @ 150 mls/hr IV .Q6H40M [facility] Last Admin: 01/30/17 08:39 Dose: 150 mls/hr Meropenem (Merrem Iv 1 Gm Premix) 50 mls @ 100 mls/hr IVPB Q8 [facility] PRN Reason: Protocol Stop: 02/02/17 23:16 Last Admin: 01/30/17 05:32 Dose: 100 mls/hr Magnesium Sulfate 2 gm/ Sodium (Chloride) 104 mls @ 102 mls/hr IVPB Q2H [facility] Stop: 01/30/17 10:47 Last Admin: 01/30/17 08:40 Dose: 102 mls/hr Insulin Human Lispro (Humalog Med) 0 units SC ACHS [facility] PRN Reason: Protocol Last Admin: 01/30/17 08:32 Dose: Not Given Insulin Human NPH (Humulin N) 14 units SC DAILY@1745 [facility] Last Admin: 01/29/17 17:20 Dose: 14 units Insulin Human NPH (Humulin N) 18 units SC ACB [facility] Last Admin: 01/30/17 08:40 Dose: 18 units Levalbuterol HCl (Xopenex) 0.63 mg IH [id number] [facility] Last Admin: 01/30/17 08:30 Dose: 0.63 mg Magnesium Oxide (Mag-Ox) 400 mg PO DAILY [facility] Nicotine (Nicoderm Cq) 1 patch TD DAILY [facility] Ondansetron HCl (Zofran Inj) 4 mg IVP Q6H PRN PRN Reason: Nausea/Vomiting Oxycodone HCl (Oxycodone Immediate Release Tab) 30 mg PO TID PRN PRN Reason: Pain, moderate (4-7) Last Admin: 01/30/17 05:32 Dose: 30 mg Pantoprazole Sodium (Protonix Ec Tab) 40 mg PO DAILY [facility] Last Admin: 01/29/17 10:05 Dose: 40 mg Polyethylene Glycol (Miralax) 17 gm PO BID [facility] Last Admin: 01/29/17 17:20 Dose: 17 gm Potassium Chloride (K-Dur 20 Meq Er Tab) 20 meq PO BRK [facility] Last Admin: 01/30/17 08:40 Dose: 20 meq Pregabalin (Lyrica) 75 mg PO BID [facility] Last Admin: 01/29/17 17:20 Dose: 75 mg Ursodiol (Actigall) 300 mg PO BID [facility] Last Admin: 01/29/17 17:20 Dose: 300 mg Venlafaxine HCl (Effexor Xr) 75 mg PO DAILY [facility] Last Admin: 01/29/17 10:04 Dose: 75 mg - Labs Labs: 01/30/17 05:30 01/30/17 05:30 PT 22.4 SECONDS (9.4-12.5) H 01/30/17 05:30 INR 2.01 (0.93-1.08) H 01/30/17 05:30 APTT 34.1 Seconds (25.1-36.5) 01/30/17 05:30 - Constitutional Appears: Non-toxic - Head Exam Head Exam: NORMAL INSPECTION - ENT Exam ENT Exam: Mucous Membranes Moist - Neck Exam Neck Exam: absent: Meningismus - Respiratory Exam Respiratory Exam: Decreased Breath Sounds - Cardiovascular Exam Cardiovascular Exam: +S1, +S2 - GI/Abdominal Exam GI & Abdominal Exam: Soft. absent: Tenderness Assessment and Plan - Assessment and Plan (Free Text) Plan: Assessment Sepsis due to perineal abscess / severe skin and skin structure infection growing methicillin-resistant coagulase negative staph S/P I and D POD #4 morbid obesity with BMI 44 chronic pain syndrome Plan Continue Vancomycin and Merrem (day 4 from surgery) - follow up further plans of Surgery will monitor clinically HIV test is negative 01/2017
--- NOTE | 2017-01-30 17:03 | PN ---
DATE: 01/30/2017 ENDOCRINOLOGY FOLLOWUP NOTE LOCATION: In the room 370. SUBJECTIVE: This is a 41-year-old male with recent uncontrolled type 2 insulin-requiring diabetes, presenting here with scrotal and perirectal abscesses and is now being followed closely for metabolic management. He also has a recent hyperglycemic accelerations that have improved accordingly with the initiation of insulin therapy as given. His glucose levels have ranged from 107 to 147 mg/dL. His latest chemistry showed a BUN of 7, sodium 137, potassium 3.9, chloride 105, CO2 23, glucose 115, and creatinine 0.7. So, at this time, we will continue the same basal insulin given as Humulin NPH of 18 units before breakfast and 14 units at dinner time as ordered. We will continue the low-dose correction scale using Humalog insulin as given. We will titrate incremental as indicated to optimize metabolic control. We will follow and advise accordingly. Kirti Mc MD
--- NOTE | 2017-01-30 23:40 | PN ---
DATE: 01/30/2017 LOCATION: The patient is seen lying in the bed again in room 370, bed 2. SUBJECTIVE: The patient is lying in the bed. The patient was seen and examined with the patient's nurse. The patient was still having abdominal pain and perineal pain. The patient's overnight nurse's notes were reviewed. OBJECTIVE: VITAL SIGNS: T-max is 98.9. Pulse 66 to 64, blood pressure 142/78, 118/60, 113/55, 166/80, 110/70, respirations 18 to 20, O2 sat 97% to 98% on room air. Intake 1200, output 1800. HEAD: Normocephalic, atraumatic. HEENT: Shows pinkish pale conjunctivae. Anicteric sclerae. No oropharyngeal lesion. No neck rigidity. CHEST: Symmetrical. LUNG: Shows no crackles, rales. Occasional rhonchi bibasilar. CARDIOVASCULAR: S1, S2, regular rhythm. ABDOMEN: Morbidly obese. GENITALIA: Male. Positive Nava catheter. Positive scrotal swelling decreased and erythema decreased. EXTREMITIES: Shows chronic nonpitting edema of the lower extremity. MUSCULOSKELETAL: Shows a body mass index of 44.7. NEUROLOGIC: The patient is alert, awake, oriented x3. Gait examination could not be tested. The patient is able to move upper extremity and lower extremity without assistance. DIAGNOSTICS: 01/30/2017, WBC 9.8, hemoglobin and hematocrit 10.8 and 34, platelet 266. Granulocytes 72% segs. PT 22.4, INR 2.0. Sodium 137, potassium 3.9, chloride 105, CO2 23, anion gap 13, BUN 7, creatinine 0.7, GFR greater than 60, glucose 107, 147, 104, 115, calcium 8.9, magnesium 1.5. LFTs show alk phos of 204, albumin 2.9. Scrotal and urine cultures, coagulase-negative Staphylococcus aureus. The patient had placement of left upper extremity PICC line placement. IMPRESSION: 1. Sepsis due to perineal abscess and scrotal abscess. 2. Coagulase-negative Staphylococcus aureus scrotal and perineal abscess. 3. Coagulase-negative urinary tract infection. 4. Chronic narcotic-dependent pain syndrome. 5. Super morbid obesity with elevated body mass index of 45. 6. Leukocytosis. 7. Normocytic anemia. 8. Granulocytosis. 9. Elevated erythrocyte sedimentation rate of 98. 10. Coumadin dependent, history of pulmonary embolism and deep venous thrombosis. 11. Hypomagnesemia. 12. Insulin-requiring diabetes mellitus with hemoglobin A1c of 6.0 and fructosamine of 175. 13. Gait dysfunction. 14. Deconditioning. 15. Hypovitaminosis D. 16. Hypertriglyceridemia with decreased HDL. 17. Hyperprocalcitonemia. 18. Proteinuria, microscopic hematuria, pyuria, bacteriuria, and coagulase-negative Staphylococcus aureus urinary tract infection. 19. Insulin-requiring type 2 diabetes mellitus with hyperglycemia. 20. History of deep venous thrombosis of the lower extremity and pulmonary embolism. 21. Dyslipidemia. 22. Depression. 23. Diabetic neuropathy. 24. Gallbladder sludge and hepatosplenomegaly. 25. Constipation. 26. Nicotine dependence. 1. Scrotal, perirectal, perineal abscess with persistent scrotal abscess and necrotizing fasciitis. 2. Increasing bibasilar atelectasis and increasing bibasilar densities. 3. Hepatosplenomegaly with fatty infiltration of the liver and hepatic steatosis. 4. Gallbladder sludge and probable cholelithiasis with distended gallbladder. 5. Hepatosplenomegaly. 6. Nonspecific bilateral perinephric stranding. 7. Colonic rectal fecal stasis. 8. Perihepatic and perisplenic ascites. 9. 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 10. Significant periscrotal fluid and soft tissue swelling, unchanged from prior studies. 11. Multiple foci of gas within the scrotum extending towards the perineum, suggestive of scrotal abscess and necrotizing fasciitis. 12. Fatty infiltration of the ventral abdominal wall. 13. Bilateral inguinal lymphadenopathy and intrapelvic lymphadenopathy. 14. Super morbid obesity. 15. Deconditioning. 16. Transient hypotension. 17. History of hypertension. 18. 19. Narcotic dependent pain syndrome. 20. Leukocytosis with granulocytosis. 21. Elevated erythrocyte sedimentation rate of 98. 22. Normocytic anemia. 23. 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 24. Insulin-requiring diabetes mellitus, well controlled with hemoglobin A1c of 6.0. 25. Hypovitaminosis D. 26. Hypertriglyceridemia with decreased HDL of 24. 27. Elevated C-reactive protein of greater than 15. 28. Lactic acidosis. 29. Hyperprocalcitonemia. 30. Proteinuria, glycosuria, microscopic hematuria, pyuria, bacteriuria. 31. Coagulase-negative Staphylococcus aureus scrotal abscess. 32. Coagulase-negative urinary tract infection. 33. Status post 2 units of fresh frozen plasma transfusion. 34. Right bundle-branch block. 35. Questionable volume overload with increasing bibasilar densities and atelectasis. 36. Questionable cholelithiasis with gallbladder sludge and distended gallbladder. 37. Right epididymitis with enlarged heterogeneous right epididymal head with hypoechoic cyst and an increased vascular flow within the right epididymis. 38. Enlarged left epididymal head with left epididymal head hypoechoic cyst. 39. Scrotal edema and swelling with scrotal abscess. 40. Hepatic steatosis and fatty infiltration of the liver with hepatomegaly. 41. History of narcotic dependent pain syndrome. 42. Insulin-requiring type 2 diabetes mellitus. 43. Coumadin-dependent pulmonary embolism and deep venous thrombosis. 44. Dyslipidemia. 45. Depression. 46. Hypokalemia. 47. Morbid obesity. 48. Constipation, fecal retention. 49. Gait dysfunction. 1. Status post incision and drainage of perirectal abscess. 2. Necrotizing fasciitis. 3. Severe scrotal wall thickening and swelling. 4. Right epididymitis with increased vascular flow. 5. Bilateral epididymal cyst with enlargement of the bilateral epididymal heads heterogenous echogenicity 6. Enlarged right epididymal head and with heterogenous echogenicity with hypoechoic cyst. 7. Right epididymitis. 8. Fatty infiltration of the liver with hepatic steatosis. 9. Hepatosplenomegaly. 10. Gallbladder sludge without cholelithiasis an d cholecystitis. 11. Mild cardiomegaly. 12. Right bundle-branch block. 13. Nicotine addiction and dependence. 14. Narcotic dependent pain syndrome. 15. Multiple perineal scrotal abscess. 16. Sepsis. 17. Insulin-requiring diabetes mellitus. 18. Low grade fever. 19. Hypotension and history of hypertension. 20. Leukocytosis with granulocytosis. 21. Normocytic anemia. 22. Elevated erythrocyte sedimentation rate of 98. 23. 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 24. Hyperglycemia. 25. Hyponatremia. 26. Hypomagnesemia. 27. Elevated alkaline phosphatase, etiology undetermined. 28. Hypertriglyceridemia and hypercholesteremia with decreased HDL. 29. Lactic acidosis. 30. Proteinuria, glycosuria and microscopic hematuria, and bacteriuria 31. Super morbid obesity with body mass index of 45. 32. Perirectal abscess status post incision and drainage postop day number 1. 33. Uncontrolled decompensated type 2 insulin-requiring diabetes mellitus. 34. 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 35. 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 36. Status post incision and drainage washout and packing of the perirectal and scrotal abscess. 1. 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 2. Bilateral adenopathy with intrapelvic adenopathy. 3. Distended gallbladder with gallbladder sludge and possible cholelithiasis. 4. Hepatic steatosis and hepatomegaly and fatty infiltration of the liver. 5. Hepatosplenomegaly. 6. Super morbid obesity. 7. Questionable and possible perineal and scrotal abscess. 8. Bibasilar atelectasis, right more than the left. 9. Hepatic steatosis and fatty infiltration of the liver and hepatic splenomegaly. 10. Distended gallbladder with gallbladder sludge and probable gallstone. 11. Splenomegaly. 12. Bilateral perinephric stranding. 13. Fecal retention and fecal stasis. 14. Prostatic calcification. 15. Degenerative joint disease of the bones and the spine. 16. Inguinal and anterior pelvic soft tissue swelling extending into the scrotum with multiple foci of gas within the scrotum extending towards the perineum suggestive of necrotizing infection versus necrotizing fasciitis. 17. Fat containing ventral abdominal hernia. 18. Inguinal and intrapelvic lymphadenopathy. 19. Sepsis. 20. Fever. 21. Tachycardia. 22. Leukocytosis with granulocytosis. 23. Normocytic anemia. 24. Coumadin dependent, history of deep venous thrombosis and pulmonary embolism. 25. Insulin-requiring and dependent diabetes mellitus. 26. Hyponatremia. 27. Mild hypochloremia. 28. Hyperglycemia. 29. Lactic acidosis. 30. Hypertriglyceridemia, hypercholesteremia with decreased HDL. 31. Proteinuria, glycosuria, hematuria, pyuria and bacteriuria. 32. A negative blood type. 33. Nicotine addiction and dependence. 34. History of chronic narcotic dependent pain syndrome. 35. Hypovitaminosis D. 36. History of depression. 37. Diabetic neuropathy. 38. Hypokalemia. PLAN: Plan at this time, the patient's case has been referred for Systems Programmer Analyst for discharge planning, surgical recommendations noted. Repeat labs ordered for the morning. If Surgery is not planning for any surgical intervention, we can resume Coumadin if cleared by Surgery: 1. The patient is on Mucomyst 20% 4 mL q.6 hours. 2. Actigall 300 mg twice a day. 3. Colace 100 mg three times a day. 4. Coreg 3.125 twice a day. 5. Dilaudid 0.5 mg IV q.6 p.r.n. 6. Drisdol 50,000 units three times a week. 7. Effexor 75 mg daily. 8. Humalog medium-dose sliding scale coverage before meals and at bedtime. 9. NPH insulin 14 units with supper and NPH insulin 18 units with breakfast. 10. K-Dur 20 mEq daily. 11. Lipitor 40 mg daily. 12. Lyrica 75 mg twice a day. 13. Magnesium oxide 400 mg p.o. daily. 14. Meropenem 1 gm IV q.8. 15. MiraLAX 17 gm twice a day. 16. Nicotine patch 21 mg daily. 17. Oxycodone 30 mg t.i.d. p.r.n. 18. The patient is on Protonix 40 mg daily. 19. The patient was given Relistor 8 mg subcutaneous one dose. 20. Senokot was given once. 21. The patient is on IV fluid 0.9 normal saline at 150 mL an hour. 22. Vancomycin 1.5 gm IV q.12. 23. Xopenex nebulizer 0.63 mg q.6 hours. 24. Zofran 4 mg IV q.6. The patient is on chest PT, incentive spirometry. The patient has been out of bed, CHRISTIAN stockings, SCDs, occupational therapy, physical therapy ordered. The patient was seen by physical therapist. The recommendation was physical therapy three to five times per week for 2 weeks and discharge recommendations were home. The patient was seen by Systems Programmer Analyst. Case referred to home IV infusion on IV antibiotics. At present, the patient's case will be referred for resumption of Coumadin if cleared by Surgery and reevaluated with the surgical attending regarding repeat abnormal CAT scan report. The patient has been updated about his condition and diagnosis. The patient has been encouraged out of bed to chair, ambulation, physical therapy, etc. The patient is updated about his condition, diagnosis, treatment plan in layman's language. All questions concerned answered. Dictated and electronically signed, not read. Dakotah Cummins MD [facility]
[2017-01-31] MEDS: oxyCODONE 30 mg Immediate Release Tab PO PRN ×4 (01:31→20:08)
[2017-01-31] MEDS: Acetylcysteine 20% Inhal Soln (4ml) IH SCH ×4 (01:39→21:00)
[2017-01-31] MEDS: Levalbuterol 0.63 MG/3 ML Inhal Soln UD IH SCH ×4 (01:39→21:00)
[2017-01-31] MEDS: Sodium Chloride 0.9% 1,000 ML IV SCH (05:00)
[2017-01-31] MEDS: HYDROmorphone 0.5 mg/0.5 ml ISec IVP PRN ×4 (05:05→23:55)
[2017-01-31] MEDS: Meropenem IV 1 gm in NS 50 ML IVPB SCH ×3 (05:05→22:05)
[2017-01-31 07:07] LABS: ALB/GLOB RATIO 0.8 (1.1-1.8); ALKALINE PHOSPHATASE 164 U/L (38-126); ALT/SGPT 38 U/L (7-56); AST/SGOT 29 U/L (17-59); BILIRUBIN,DIRECT 0.5 mg/dL (0.0-0.4); BILIRUBIN,TOTAL 0.6 mg/dL (0.2-1.3); BLOOD UREA NITROGEN 7 mg/dL (7-21); CALCIUM 8.6 mg/dL (8.4-10.5); CARBON DIOXIDE 27 mmol/L (21-33); CHLORIDE 104 mmol/L (98-107); GFR AFRICAN-AMERICAN > 60; GLUCOSE,RANDOM 100 mg/dL (70-110); MAGNESIUM 1.6 mg/dL (1.7-2.2); POTASSIUM 3.8 mmol/L (3.6-5.0); SODIUM 138 mmol/L (132-148); TOTAL PROTEIN 6.2 g/dL (5.8-8.3)
[2017-01-31 07:15] LABS: BASO # 0.04 K/mm3 (0.0-2.0); BASO % 0.4 % (0.0-3.0); EOS # 0.2 (0.0-0.7); EOS % 1.6 % (1.5-5.0); GRAN # 6.71 (1.4-6.5); GRAN % 69.8 % (50.0-68.0); LYMPH # 1.9 (1.2-3.4); MEAN CELL VOLUME 90.7 fl (80.0-105.0); MEAN CORPUSCULAR HEMOGLOBIN 28.3 pg (25.0-35.0); MEAN CORPUSCULAR HGB CONC 31.2 g/dl (31.0-37.0); MEAN PLATELET VOLUME 9.5 fl (7.0-11.0); MONO # 0.8 (0.1-0.6); MONO % 8.2 % (1.0-6.0); WHITE BLOOD COUNT 9.6 10^3/ul (4.5-11.0)
[2017-01-31] MEDS: Insulin Lispro (humaLOG) MEDIUM Coverage SC SCH (08:06)
[2017-01-31 08:19] LABS: INR 1.89 (0.93-1.08); PARTIAL THROMBOPLASTIN TIME 33.1 Seconds (25.1-36.5)
--- NOTE | 2017-01-31 08:20 | CP.PCM.PN ---
Subjective - Date & Time of Evaluation Date of Evaluation: 01/31/17 Time of Evaluation: 07:45 - Subjective Subjective: (covering for Dr. Cummins) Patient is seen this morning. He is complaining of back pain which he says is chronic. Objective - Vital Signs/Intake and Output Vital Signs (last 24 hours): Temp Pulse Resp BP Pulse Ox 98.7 F 64 18 142/78 98 01/30/17 16:00 01/30/17 17:50 01/30/17 16:00 01/30/17 17:50 01/30/17 16:00 Intake and Output: 01/31/17 01/31/17 06:59 18:59 Intake Total 1280 360 Output Total 2200 1500 Balance -920 -1140 - Medications Medications: Current Medications Acetylcysteine (Acetylcysteine 20%) 4 ml IH [id number] [facility] Last Admin: 01/31/17 01:39 Dose: Not Given Atorvastatin Calcium (Lipitor) 40 mg PO DAILY [facility] Last Admin: 01/30/17 10:52 Dose: 40 mg Carvedilol (Coreg) 3.125 mg PO BID [facility] Last Admin: 01/30/17 17:50 Dose: 3.125 mg Docusate Sodium (Colace) 100 mg PO TID [facility] Last Admin: 01/30/17 17:50 Dose: 100 mg Ergocalciferol (Drisdol 50,000 Intl Units Cap) 1 cap PO Q48H [facility] Stop: 02/18/17 19:31 Last Admin: 01/29/17 18:41 Dose: 1 cap Hydromorphone HCl (Dilaudid) 0.5 mg IVP Q6H PRN PRN Reason: Pain, moderate (4-7) Last Admin: 01/31/17 05:05 Dose: 0.5 mg Vancomycin HCl 1.5 gm/ Sodium (Chloride) 500 mls @ 250 mls/hr IVPB Q12H JUN PRN Reason: Protocol Last Admin: 01/30/17 21:09 Dose: 250 mls/hr Sodium Chloride (Sodium Chloride 0.9%) 1,000 mls @ 150 mls/hr IV .Q6H40M [facility] Last Admin: 01/31/17 05:00 Dose: 150 mls/hr Meropenem (Merrem Iv 1 Gm Premix) 50 mls @ 100 mls/hr IVPB Q8 [facility] PRN Reason: Protocol Stop: 02/02/17 23:16 Last Admin: 01/31/17 05:05 Dose: 100 mls/hr Insulin Human Lispro (Humalog Med) 0 units SC ACHS [facility] PRN Reason: Protocol Last Admin: 01/31/17 08:06 Dose: Not Given Insulin Human NPH (Humulin N) 14 units SC DAILY@1745 [facility] Last Admin: 01/30/17 17:49 Dose: 14 units Insulin Human NPH (Humulin N) 18 units SC ACB [facility] Last Admin: 01/30/17 08:40 Dose: 18 units Levalbuterol HCl (Xopenex) 0.63 mg IH [id number] [facility] Last Admin: 01/31/17 01:39 Dose: Not Given Magnesium Oxide (Mag-Ox) 400 mg PO DAILY [facility] Last Admin: 01/30/17 10:53 Dose: 400 mg Nicotine (Nicoderm Cq) 1 patch TD DAILY [facility] Last Admin: 01/30/17 10:52 Dose: 1 patch Ondansetron HCl (Zofran Inj) 4 mg IVP Q6H PRN PRN Reason: Nausea/Vomiting Oxycodone HCl (Oxycodone Immediate Release Tab) 30 mg PO Q6H PRN PRN Reason: Pain, severe (8-10) Last Admin: 01/31/17 08:02 Dose: 30 mg Pantoprazole Sodium (Protonix Ec Tab) 40 mg PO DAILY [facility] Last Admin: 01/30/17 10:53 Dose: 40 mg Polyethylene Glycol (Miralax) 17 gm PO BID [facility] Last Admin: 01/30/17 17:52 Dose: 17 gm Potassium Chloride (K-Dur 20 Meq Er Tab) 20 meq PO BRK [facility] Last Admin: 01/30/17 08:40 Dose: 20 meq Pregabalin (Lyrica) 75 mg PO BID [facility] Last Admin: 01/30/17 17:49 Dose: 75 mg Ursodiol (Actigall) 300 mg PO BID [facility] Last Admin: 01/30/17 17:49 Dose: 300 mg Venlafaxine HCl (Effexor Xr) 75 mg PO DAILY [facility] Last Admin: 01/30/17 10:53 Dose: 75 mg Warfarin Sodium (Coumadin) 5 mg PO 1800 [facility] PRN Reason: Protocol - Labs Labs: 01/31/17 05:30 01/31/17 05:30 PT 22.4 SECONDS (9.4-12.5) H 01/30/17 05:30 INR 2.01 (0.93-1.08) H 01/30/17 05:30 APTT 34.1 Seconds (25.1-36.5) 01/30/17 05:30 - Constitutional Appears: No Acute Distress - Head Exam Head Exam: ATRAUMATIC, NORMOCEPHALIC - Respiratory Exam Respiratory Exam: Decreased Breath Sounds, Clear to Ausculation Bilateral, NORMAL BREATHING PATTERN - Cardiovascular Exam Cardiovascular Exam: +S1, +S2 - GI/Abdominal Exam GI & Abdominal Exam: Soft. absent: Tenderness - Neurological Exam Neurological Exam: Alert, Awake, Oriented x3 Assessment and Plan - Assessment and Plan (Free Text) Assessment: 41 year old morbidly obese male Sepsis due to perianal abscess and scrotal abscess Urinary tract infection History of pulmonary embolism and DVT on coumadin Plan: Patient is on IV vancomycin and merrem as per infectious disease. Urine and wound culture growing coagulase negative staphylococcus. continue pain medications. continue coumadin for history of pulmonary embolism and DVT. continue insulin for diabetes.
--- NOTE | 2017-01-31 08:21 | CP.PCM.PN ---
Subjective - Date & Time of Evaluation Date of Evaluation: 01/31/17 Time of Evaluation: 08:19 - Subjective Subjective: Surgery Pt s&e. NAEON. + BM. Objective - Vital Signs/Intake and Output Vital Signs (last 24 hours): Temp Pulse Resp BP Pulse Ox 98.7 F 64 18 142/78 98 01/30/17 16:00 01/30/17 17:50 01/30/17 16:00 01/30/17 17:50 01/30/17 16:00 Intake and Output: 01/31/17 01/31/17 06:59 18:59 Intake Total 1280 360 Output Total 2200 1500 Balance -920 -1140 - Medications Medications: Current Medications Acetylcysteine (Acetylcysteine 20%) 4 ml IH [id number] [facility] Last Admin: 01/31/17 01:39 Dose: Not Given Atorvastatin Calcium (Lipitor) 40 mg PO DAILY [facility] Last Admin: 01/30/17 10:52 Dose: 40 mg Carvedilol (Coreg) 3.125 mg PO BID [facility] Last Admin: 01/30/17 17:50 Dose: 3.125 mg Docusate Sodium (Colace) 100 mg PO TID [facility] Last Admin: 01/30/17 17:50 Dose: 100 mg Ergocalciferol (Drisdol 50,000 Intl Units Cap) 1 cap PO Q48H [facility] Stop: 02/18/17 19:31 Last Admin: 01/29/17 18:41 Dose: 1 cap Hydromorphone HCl (Dilaudid) 0.5 mg IVP Q6H PRN PRN Reason: Pain, moderate (4-7) Last Admin: 01/31/17 05:05 Dose: 0.5 mg Vancomycin HCl 1.5 gm/ Sodium (Chloride) 500 mls @ 250 mls/hr IVPB Q12H [facility] PRN Reason: Protocol Last Admin: 01/30/17 21:09 Dose: 250 mls/hr Sodium Chloride (Sodium Chloride 0.9%) 1,000 mls @ 150 mls/hr IV .Q6H40M [facility] Last Admin: 01/31/17 05:00 Dose: 150 mls/hr Meropenem (Merrem Iv 1 Gm Premix) 50 mls @ 100 mls/hr IVPB Q8 [facility] PRN Reason: Protocol Stop: 02/02/17 23:16 Last Admin: 01/31/17 05:05 Dose: 100 mls/hr Insulin Human Lispro (Humalog Med) 0 units SC ACHS [facility] PRN Reason: Protocol Last Admin: 01/31/17 08:06 Dose: Not Given Insulin Human NPH (Humulin N) 14 units SC DAILY@1745 [facility] Last Admin: 01/30/17 17:49 Dose: 14 units Insulin Human NPH (Humulin N) 18 units SC ACB [facility] Last Admin: 01/30/17 08:40 Dose: 18 units Levalbuterol HCl (Xopenex) 0.63 mg IH [id number] [facility] Last Admin: 01/31/17 01:39 Dose: Not Given Magnesium Oxide (Mag-Ox) 400 mg PO DAILY [facility] Last Admin: 01/30/17 10:53 Dose: 400 mg Nicotine (Nicoderm Cq) 1 patch TD DAILY [facility] Last Admin: 01/30/17 10:52 Dose: 1 patch Ondansetron HCl (Zofran Inj) 4 mg IVP Q6H PRN PRN Reason: Nausea/Vomiting Oxycodone HCl (Oxycodone Immediate Release Tab) 30 mg PO Q6H PRN PRN Reason: Pain, severe (8-10) Last Admin: 01/31/17 08:02 Dose: 30 mg Pantoprazole Sodium (Protonix Ec Tab) 40 mg PO DAILY [facility] Last Admin: 01/30/17 10:53 Dose: 40 mg Polyethylene Glycol (Miralax) 17 gm PO BID [facility] Last Admin: 01/30/17 17:52 Dose: 17 gm Potassium Chloride (K-Dur 20 Meq Er Tab) 20 meq PO BRK [facility] Last Admin: 01/30/17 08:40 Dose: 20 meq Pregabalin (Lyrica) 75 mg PO BID [facility] Last Admin: 01/30/17 17:49 Dose: 75 mg Ursodiol (Actigall) 300 mg PO BID [facility] Last Admin: 01/30/17 17:49 Dose: 300 mg Venlafaxine HCl (Effexor Xr) 75 mg PO DAILY [facility] Last Admin: 01/30/17 10:53 Dose: 75 mg Warfarin Sodium (Coumadin) 5 mg PO 1800 [facility] PRN Reason: Protocol - Labs Labs: 01/31/17 05:30 01/31/17 05:30 PT 22.4 SECONDS (9.4-12.5) H 01/30/17 05:30 INR 2.01 (0.93-1.08) H 01/30/17 05:30 APTT 34.1 Seconds (25.1-36.5) 01/30/17 05:30 - Constitutional Appears: No Acute Distress - Head Exam Head Exam: ATRAUMATIC, NORMAL INSPECTION, NORMOCEPHALIC - Eye Exam Eye Exam: EOMI, Normal appearance, PERRL Pupil Exam: NORMAL ACCOMODATION, PERRL - ENT Exam ENT Exam: Mucous Membranes Moist, Normal Exam - Neck Exam Neck Exam: Full ROM, Normal Inspection. absent: Lymphadenopathy - Respiratory Exam Respiratory Exam: Clear to Ausculation Bilateral, NORMAL BREATHING PATTERN - Cardiovascular Exam Cardiovascular Exam: REGULAR RHYTHM, +S1, +S2. absent: Murmur - GI/Abdominal Exam GI & Abdominal Exam: Soft, Normal Bowel Sounds. absent: Distended, Firm, Guarding, Tenderness - Rectal Exam Rectal Exam: absent: Black Stool, Bloody Stool, Hemorrhoids Additional comments: incision minimal drainage. - Exam Exam: Scrotal Swelling. absent: NORMAL INSPECTION External exam: Erythema, Swelling - Extremities Exam Extremities Exam: Full ROM, Normal Capillary Refill, Normal Inspection. absent : Joint Swelling, Pedal Edema - Back Exam Back Exam: NORMAL INSPECTION - Neurological Exam Neurological Exam: Alert, Awake, CN II-XII Intact, Oriented x3 - Psychiatric Exam Psychiatric exam: Normal Affect, Normal Mood - Skin Skin Exam: Erythema, Warm Assessment and Plan - Assessment and Plan (Free Text) Assessment: 41M perineal abscess s/p I&D POD #[address] scan improved from previous imaging Plan: - plan to remove final ruthie - c/w abx - pain control PRN - urology recs about fernandes - c/w medical management per primary - further recs per Dr. Lara surgical attending
[2017-01-31] MEDS ORDERED: Ergocalciferol 50,000 Intl Units Cap PO SCH (10:00)
[2017-01-31] MEDS: Vancomycin 1.5 GM in Sodium Chloride 0.9% 500 ML IVPB SCH ×2 (10:42→22:08)
[2017-01-31] MEDS: Magnesium Oxide 400 mg Tab UD PO SCH (10:43)
[2017-01-31] MEDS: Potassium Chloride 20 mEq ER Tab PO SCH (10:44)
[2017-01-31] MEDS: Venlafaxine 75 mg ER Cap PO SCH (10:45)
[2017-01-31] MEDS: Pantoprazole 40 mg EC Tab PO SCH (10:45)
[2017-01-31] MEDS: POLYETHYLENE GLYCOL 3350 17 GM/Dose PACKET PO SCH ×2 (10:45→10:54)
[2017-01-31] MEDS: Insulin Lispro (humaLOG) LOW Coverage SC SCH ×3 (12:18→22:24)
--- NOTE | 2017-01-31 16:09 | PN ---
DATE: ENDO FOLLOWUP NOTE LOCATION: In room 370. SUBJECTIVE: This is a 41-year-old male admitted with perirectal and scrotal abscesses undergoing incisional drainage procedure and currently receiving IV antibiotic management as given. He also has hyperglycemia acceleration and was started on basal insulin with Humalog coverage scale as given. His glucose values are low normal at this time and have ranged from 92 to 98 and 104 mg/dL. The latest chemistry showed BUN of 7, sodium of 138, potassium of 3.8, chloride of 104, CO2 of 27, glucose of 100, and creatinine of 0.6. Actually, he was on basal insulin given Lantus at bedtime daily given on an outpatient. So at this time, we will discontinued the NPH given twice daily as ordered and switched over to basal insulin, which he was taking at home as given. We will modify his coverage scale to a low dose aggressive using Humalog insulin as given. The coverage scale was started at lunch time today as ordered. We will also add Levemir given overnight to 14 units subcutaneous at bedtime daily as ordered. We also considered addition of a combination of oral hypoglycemic therapy for eventual discharge as ordered. We do not have on our hospital formulary the current oral hypoglycemic therapy that he is taking at home as noted. He was on Jardiance at 10 mg b.i.d. and Trulicity given as 1.5 mg subcutaneous once a week as given. He was also on Toujeo at 60 units subcutaneous daily as given with Glucovance given as 2.5/500 two tablets b.i.d. as ordered. We will be adding for now Amaryl given as 4 mg b.i.d. before meals as ordered. This will be started tonight as given. We will titrate incremental as indicated to optimize metabolic control. We will obtain serial chemistries and supplement accordingly as needed. We will follow. Kirti Mc MD
--- NOTE | 2017-01-31 18:02 | CP.PCM.PN ---
Subjective - Date & Time of Evaluation Date of Evaluation: 01/31/17 Time of Evaluation: 11:35 - Subjective Subjective: Comfortable, no fevers, still with pain in the groin area. No diarrhea, no nausea or vomiting. Objective - Vital Signs/Intake and Output Vital Signs (last 24 hours): Temp Pulse Resp BP Pulse Ox 98.2 F 64 18 119/57 L 95 01/31/17 06:00 01/31/17 06:00 01/31/17 06:00 01/31/17 06:00 01/31/17 06:00 Intake and Output: 01/31/17 01/31/17 06:59 18:59 Intake Total 1280 360 Output Total 2200 1500 Balance -920 -1140 - Medications Medications: Current Medications Acetylcysteine (Acetylcysteine 20%) 4 ml IH [id number] [facility] Last Admin: 01/31/17 08:23 Dose: Not Given Atorvastatin Calcium (Lipitor) 40 mg PO DAILY [facility] Last Admin: 01/30/17 10:52 Dose: 40 mg Carvedilol (Coreg) 3.125 mg PO BID [facility] Last Admin: 01/30/17 17:50 Dose: 3.125 mg Docusate Sodium (Colace) 100 mg PO TID [facility] Last Admin: 01/30/17 17:50 Dose: 100 mg Ergocalciferol (Drisdol 50,000 Intl Units Cap) 1 cap PO Q48H [facility] Stop: 02/18/17 19:31 Last Admin: 01/29/17 18:41 Dose: 1 cap Hydromorphone HCl (Dilaudid) 0.5 mg IVP Q6H PRN PRN Reason: Pain, moderate (4-7) Last Admin: 01/31/17 05:05 Dose: 0.5 mg Vancomycin HCl 1.5 gm/ Sodium (Chloride) 500 mls @ 250 mls/hr IVPB Q12H [facility] PRN Reason: Protocol Last Admin: 01/30/17 21:09 Dose: 250 mls/hr Sodium Chloride (Sodium Chloride 0.9%) 1,000 mls @ 150 mls/hr IV .Q6H40M [facility] Last Admin: 01/31/17 05:00 Dose: 150 mls/hr Meropenem (Merrem Iv 1 Gm Premix) 50 mls @ 100 mls/hr IVPB Q8 [facility] PRN Reason: Protocol Stop: 02/02/17 23:16 Last Admin: 01/31/17 05:05 Dose: 100 mls/hr Insulin Human Lispro (Humalog Med) 0 units SC ACHS [facility] PRN Reason: Protocol Last Admin: 01/31/17 08:06 Dose: Not Given Insulin Human NPH (Humulin N) 14 units SC DAILY@1745 [facility] Last Admin: 01/30/17 17:49 Dose: 14 units Insulin Human NPH (Humulin N) 18 units SC ACB [facility] Last Admin: 01/30/17 08:40 Dose: 18 units Levalbuterol HCl (Xopenex) 0.63 mg IH [id number] [facility] Last Admin: 01/31/17 08:23 Dose: 0.63 mg Magnesium Oxide (Mag-Ox) 400 mg PO DAILY [facility] Last Admin: 01/30/17 10:53 Dose: 400 mg Nicotine (Nicoderm Cq) 1 patch TD DAILY [facility] Last Admin: 01/30/17 10:52 Dose: 1 patch Ondansetron HCl (Zofran Inj) 4 mg IVP Q6H PRN PRN Reason: Nausea/Vomiting Oxycodone HCl (Oxycodone Immediate Release Tab) 30 mg PO Q6H PRN PRN Reason: Pain, severe (8-10) Last Admin: 01/31/17 08:02 Dose: 30 mg Pantoprazole Sodium (Protonix Ec Tab) 40 mg PO DAILY [facility] Last Admin: 01/30/17 10:53 Dose: 40 mg Polyethylene Glycol (Miralax) 17 gm PO BID [facility] Last Admin: 01/30/17 17:52 Dose: 17 gm Potassium Chloride (K-Dur 20 Meq Er Tab) 20 meq PO BRK [facility] Last Admin: 01/30/17 08:40 Dose: 20 meq Pregabalin (Lyrica) 75 mg PO BID [facility] Last Admin: 01/30/17 17:49 Dose: 75 mg Ursodiol (Actigall) 300 mg PO BID [facility] Last Admin: 01/30/17 17:49 Dose: 300 mg Venlafaxine HCl (Effexor Xr) 75 mg PO DAILY [facility] Last Admin: 01/30/17 10:53 Dose: 75 mg Warfarin Sodium (Coumadin) 5 mg PO 1800 [facility] PRN Reason: Protocol - Labs Labs: 01/31/17 05:30 01/31/17 05:30 PT 21.1 SECONDS (9.4-12.5) H 01/31/17 07:25 INR 1.89 (0.93-1.08) H 01/31/17 07:25 APTT 33.1 Seconds (25.1-36.5) 01/31/17 07:25 - Constitutional Appears: Non-toxic - Head Exam Head Exam: NORMAL INSPECTION - Neck Exam Neck Exam: absent: Meningismus - Respiratory Exam Respiratory Exam: Decreased Breath Sounds - Cardiovascular Exam Cardiovascular Exam: +S1, +S2 - GI/Abdominal Exam GI & Abdominal Exam: Soft. absent: Tenderness Additional comments: perineal area with dressings in place Assessment and Plan - Assessment and Plan (Free Text) Plan: Assessment Sepsis due to perineal abscess / severe skin and skin structure infection growing methicillin-resistant coagulase negative staph S/P I and D POD #5 morbid obesity with BMI 44 chronic pain syndrome Plan Continue Vancomycin and Merrem (day 5 from surgery) - unable to rule out other bacteria such as gram negative bacilli in this patient with severe skin/skin structure infection therefore will continue broad-spectrum coverage - follow up further plans of Surgery will continue to monitor clinically HIV test is negative 01/2017
[2017-01-31] MEDS: Ergocalciferol 50,000 Intl Units Cap PO SCH (20:08)
[2017-01-31] MEDS: Insulin Detemir 100 units/ml Vial (Levemir) SC SCH (22:43)
[2017-02-01] MEDS: oxyCODONE 30 mg Immediate Release Tab PO PRN ×4 (01:08→20:18)
[2017-02-01] MEDS: Levalbuterol 0.63 MG/3 ML Inhal Soln UD IH SCH ×4 (02:40→20:44)
[2017-02-01] MEDS: Acetylcysteine 20% Inhal Soln (4ml) IH SCH ×4 (02:40→20:44)
[2017-02-01] MEDS: Meropenem IV 1 gm in NS 50 ML IVPB SCH ×3 (06:18→21:48)
[2017-02-01 06:23] LABS: BASO # 0.04 K/mm3 (0.0-2.0); BASO % 0.4 % (0.0-3.0); EOS # 0.2 (0.0-0.7); EOS % 2.3 % (1.5-5.0); GRAN # 7.69 (1.4-6.5); GRAN % 73.9 % (50.0-68.0); HEMATOCRIT 33.2 % (42.0-52.0); LYMPH # 1.8 (1.2-3.4); LYMPH % 17.1 % (22.0-35.0); MEAN CELL VOLUME 89.7 fl (80.0-105.0); MEAN CORPUSCULAR HEMOGLOBIN 28.4 pg (25.0-35.0); MEAN CORPUSCULAR HGB CONC 31.6 g/dl (31.0-37.0); MEAN PLATELET VOLUME 9.4 fl (7.0-11.0); MONO # 0.7 (0.1-0.6); MONO % 6.3 % (1.0-6.0); RED CELL DISTRIBUTION WIDTH 16.4 % (11.5-14.5); WHITE BLOOD COUNT 10.4 10^3/ul (4.5-11.0)
[2017-02-01 06:27] LABS: ALB/GLOB RATIO 0.8 (1.1-1.8); ALKALINE PHOSPHATASE 155 U/L (38-126); ALT/SGPT 35 U/L (7-56); AST/SGOT 25 U/L (17-59); BILIRUBIN,DIRECT 0.6 mg/dL (0.0-0.4); BILIRUBIN,TOTAL 0.6 mg/dL (0.2-1.3); BLOOD UREA NITROGEN 7 mg/dL (7-21); CALCIUM 8.9 mg/dL (8.4-10.5); CARBON DIOXIDE 30 mmol/L (21-33); CHLORIDE 103 mmol/L (98-107); GFR AFRICAN-AMERICAN > 60; GLUCOSE,RANDOM 112 mg/dL (70-110); MAGNESIUM 1.5 mg/dL (1.7-2.2); POTASSIUM 3.8 mmol/L (3.6-5.0); SODIUM 139 mmol/L (132-148); TOTAL PROTEIN 6.5 g/dL (5.8-8.3)
[2017-02-01 06:36] LABS: INR 1.86 (0.93-1.08); PARTIAL THROMBOPLASTIN TIME 34.4 Seconds (25.1-36.5)
[2017-02-01] MEDS: HYDROmorphone 0.5 mg/0.5 ml ISec IVP PRN ×3 (06:41→18:47)
--- NOTE | 2017-02-01 08:27 | CP.PCM.PN ---
Subjective - Date & Time of Evaluation Date of Evaluation: 02/01/17 Time of Evaluation: 07:30 - Subjective Subjective: (covering for Dr. Cummins) Patient complains of chronic back pain. He is asking for his pain medicine. Objective - Vital Signs/Intake and Output Vital Signs (last 24 hours): Temp Pulse Resp BP Pulse Ox 98.2 F 61 18 140/69 95 01/31/17 06:00 01/31/17 18:19 01/31/17 06:00 01/31/17 18:19 01/31/17 06:00 Intake and Output: 02/01/17 02/01/17 06:59 18:59 Intake Total 420 Output Total 600 Balance -180 - Medications Medications: Current Medications Acetylcysteine (Acetylcysteine 20%) 4 ml IH [id number] [facility] Last Admin: 02/01/17 02:40 Dose: Not Given Atorvastatin Calcium (Lipitor) 40 mg PO DAILY [facility] Last Admin: 01/31/17 10:45 Dose: 40 mg Carvedilol (Coreg) 3.125 mg PO BID [facility] Last Admin: 01/31/17 18:19 Dose: 3.125 mg Docusate Sodium (Colace) 100 mg PO TID [facility] Last Admin: 01/31/17 18:19 Dose: 100 mg Ergocalciferol (Drisdol 50,000 Intl Units Cap) 1 cap PO Q48H [facility] Stop: 02/18/17 19:31 Last Admin: 01/31/17 20:08 Dose: 1 cap Glimepiride (Amaryl) 4 mg PO ACBD [facility] Hydromorphone HCl (Dilaudid) 0.5 mg IVP Q6H PRN PRN Reason: Pain, moderate (4-7) Last Admin: 02/01/17 06:41 Dose: 0.5 mg Vancomycin HCl 1.5 gm/ Sodium (Chloride) 500 mls @ 250 mls/hr IVPB Q12H [facility] PRN Reason: Protocol Last Admin: 01/31/17 22:08 Dose: 250 mls/hr Sodium Chloride (Sodium Chloride 0.9%) 1,000 mls @ 150 mls/hr IV .Q6H40M [facility] Last Admin: 01/31/17 05:00 Dose: 150 mls/hr Meropenem (Merrem Iv 1 Gm Premix) 50 mls @ 100 mls/hr IVPB Q8 [facility] PRN Reason: Protocol Stop: 02/02/17 23:16 Last Admin: 02/01/17 06:18 Dose: 100 mls/hr Insulin Detemir (Levemir) 14 unit SC HS [facility] Last Admin: 01/31/17 22:43 Dose: Not Given Insulin Human Lispro (Humalog Low) 0 units SC ACHS [facility] PRN Reason: Protocol Last Admin: 01/31/17 22:24 Dose: Not Given Levalbuterol HCl (Xopenex) 0.63 mg IH [id number] [facility] Last Admin: 02/01/17 02:40 Dose: Not Given Magnesium Oxide (Mag-Ox) 400 mg PO DAILY [facility] Last Admin: 01/31/17 10:43 Dose: 400 mg Nicotine (Nicoderm Cq) 1 patch TD DAILY [facility] Last Admin: 01/31/17 10:45 Dose: Not Given Ondansetron HCl (Zofran Inj) 4 mg IVP Q6H PRN PRN Reason: Nausea/Vomiting Oxycodone HCl (Oxycodone Immediate Release Tab) 30 mg PO Q6H PRN PRN Reason: Pain, severe (8-10) Last Admin: 02/01/17 07:44 Dose: 30 mg Pantoprazole Sodium (Protonix Ec Tab) 40 mg PO DAILY [facility] Last Admin: 01/31/17 10:45 Dose: 40 mg Polyethylene Glycol (Miralax) 17 gm PO BID [facility] Last Admin: 01/31/17 10:54 Dose: Not Given Potassium Chloride (K-Dur 20 Meq Er Tab) 20 meq PO BRK [facility] Last Admin: 01/31/17 10:44 Dose: 20 meq Pregabalin (Lyrica) 75 mg PO BID [facility] Last Admin: 01/31/17 18:22 Dose: 75 mg Ursodiol (Actigall) 300 mg PO BID [facility] Last Admin: 01/31/17 18:19 Dose: 300 mg Venlafaxine HCl (Effexor Xr) 75 mg PO DAILY [facility] Last Admin: 01/31/17 10:45 Dose: 75 mg Warfarin Sodium (Coumadin) 5 mg PO 1800 [facility] PRN Reason: Protocol Last Admin: 01/31/17 18:22 Dose: 5 mg - Labs Labs: 02/01/17 06:00 02/01/17 06:00 PT 20.7 SECONDS (9.4-12.5) H 02/01/17 06:00 INR 1.86 (0.93-1.08) H 02/01/17 06:00 APTT 34.4 Seconds (25.1-36.5) 02/01/17 06:00 - Constitutional Appears: No Acute Distress - Head Exam Head Exam: ATRAUMATIC, NORMOCEPHALIC - Cardiovascular Exam Cardiovascular Exam: +S1, +S2 - GI/Abdominal Exam GI & Abdominal Exam: Soft, Normal Bowel Sounds. absent: Tenderness - Neurological Exam Neurological Exam: Alert, Awake, Oriented x3 Assessment and Plan - Assessment and Plan (Free Text) Assessment: Sepsis due to perianal abscess and scrotal abscess Urinary tract infection morbid obesity diabetes mellitus H/O PE and DVT Plan: Patient is on IV antibiotics as per infectious disease for abscess. Cultures growing methicillin resistant coagulase negative staphylococcus. Abscess incised and drained by Dr. Lara, surgeon. Patient is back on coumadin for history of DVT and PE. continue amaryl and insulin for diabetes as per endocrinology.
--- NOTE | 2017-02-01 08:50 | CP.PCM.PN ---
Subjective - Date & Time of Evaluation Date of Evaluation: 02/01/17 Time of Evaluation: 06:45 - Subjective Subjective: General Surgery- Dr. Lara Patient seen and examined at bedside this AM. No acute events overnight. Pain control regiment tolerable. Continued drainage from scrotal site. Denies fevers , chills, chest pain, shortness of breath. Nava d/c'd Objective - Vital Signs/Intake and Output Vital Signs (last 24 hours): Temp Pulse Resp BP Pulse Ox 98.2 F 61 18 140/69 95 01/31/17 06:00 01/31/17 18:19 01/31/17 06:00 01/31/17 18:19 01/31/17 06:00 Intake and Output: 02/01/17 02/01/17 06:59 18:59 Intake Total 420 Output Total 600 Balance -180 - Medications Medications: Current Medications Acetylcysteine (Acetylcysteine 20%) 4 ml IH [id number] [facility] Last Admin: 02/01/17 08:29 Dose: Not Given Atorvastatin Calcium (Lipitor) 40 mg PO DAILY [facility] Last Admin: 01/31/17 10:45 Dose: 40 mg Carvedilol (Coreg) 3.125 mg PO BID [facility] Last Admin: 01/31/17 18:19 Dose: 3.125 mg Docusate Sodium (Colace) 100 mg PO TID [facility] Last Admin: 01/31/17 18:19 Dose: 100 mg Ergocalciferol (Drisdol 50,000 Intl Units Cap) 1 cap PO Q48H [facility] Stop: 02/18/17 19:31 Last Admin: 01/31/17 20:08 Dose: 1 cap Glimepiride (Amaryl) 4 mg PO ACBD [facility] Hydromorphone HCl (Dilaudid) 0.5 mg IVP Q6H PRN PRN Reason: Pain, moderate (4-7) Last Admin: 02/01/17 06:41 Dose: 0.5 mg Vancomycin HCl 1.5 gm/ Sodium (Chloride) 500 mls @ 250 mls/hr IVPB Q12H [facility] PRN Reason: Protocol Last Admin: 01/31/17 22:08 Dose: 250 mls/hr Sodium Chloride (Sodium Chloride 0.9%) 1,000 mls @ 150 mls/hr IV .Q6H40M [facility] Last Admin: 01/31/17 05:00 Dose: 150 mls/hr Meropenem (Merrem Iv 1 Gm Premix) 50 mls @ 100 mls/hr IVPB Q8 [facility] PRN Reason: Protocol Stop: 02/02/17 23:16 Last Admin: 02/01/17 06:18 Dose: 100 mls/hr Insulin Detemir (Levemir) 14 unit SC HS [facility] Last Admin: 01/31/17 22:43 Dose: Not Given Insulin Human Lispro (Humalog Low) 0 units SC ACHS [facility] PRN Reason: Protocol Last Admin: 01/31/17 22:24 Dose: Not Given Levalbuterol HCl (Xopenex) 0.63 mg IH [id number] [facility] Last Admin: 02/01/17 08:30 Dose: 0.63 mg Magnesium Oxide (Mag-Ox) 400 mg PO DAILY [facility] Last Admin: 01/31/17 10:43 Dose: 400 mg Nicotine (Nicoderm Cq) 1 patch TD DAILY [facility] Last Admin: 01/31/17 10:45 Dose: Not Given Ondansetron HCl (Zofran Inj) 4 mg IVP Q6H PRN PRN Reason: Nausea/Vomiting Oxycodone HCl (Oxycodone Immediate Release Tab) 30 mg PO Q6H PRN PRN Reason: Pain, severe (8-10) Last Admin: 02/01/17 07:44 Dose: 30 mg Pantoprazole Sodium (Protonix Ec Tab) 40 mg PO DAILY [facility] Last Admin: 01/31/17 10:45 Dose: 40 mg Polyethylene Glycol (Miralax) 17 gm PO BID [facility] Last Admin: 01/31/17 10:54 Dose: Not Given Potassium Chloride (K-Dur 20 Meq Er Tab) 20 meq PO BRK [facility] Last Admin: 01/31/17 10:44 Dose: 20 meq Pregabalin (Lyrica) 75 mg PO BID [facility] Last Admin: 01/31/17 18:22 Dose: 75 mg Ursodiol (Actigall) 300 mg PO BID [facility] Last Admin: 01/31/17 18:19 Dose: 300 mg Venlafaxine HCl (Effexor Xr) 75 mg PO DAILY [facility] Last Admin: 01/31/17 10:45 Dose: 75 mg Warfarin Sodium (Coumadin) 5 mg PO 1800 [facility] PRN Reason: Protocol Last Admin: 01/31/17 18:22 Dose: 5 mg - Labs Labs: 02/01/17 06:00 02/01/17 06:00 PT 20.7 SECONDS (9.4-12.5) H 02/01/17 06:00 INR 1.86 (0.93-1.08) H 02/01/17 06:00 APTT 34.4 Seconds (25.1-36.5) 02/01/17 06:00 - Constitutional Appears: Non-toxic, No Acute Distress - Head Exam Head Exam: ATRAUMATIC - Eye Exam Eye Exam: EOMI. absent: Scleral icterus - ENT Exam ENT Exam: Mucous Membranes Moist - Respiratory Exam Respiratory Exam: NORMAL BREATHING PATTERN. absent: Accessory Muscle Use, Respiratory Distress - Cardiovascular Exam Cardiovascular Exam: +S1, +S2. absent: Bradycardia, Tachycardia - GI/Abdominal Exam GI & Abdominal Exam: Soft. absent: Distended, Firm, Tenderness - Exam Additional comments: scrotal induration decreased ruthie x2 actively draining - Neurological Exam Neurological Exam: Alert, Awake, Oriented x3 - Psychiatric Exam Psychiatric exam: Normal Affect - Skin Skin Exam: Warm Assessment and Plan - Assessment and Plan (Free Text) Assessment: 41M perineal abscess s/p I&D POD #6 Plan: - will keep ruthie x2 * plan to remove last 2 ruthie this week - keep area clean, encourage shower - c/w Abx - local wound care - discussed w/ Dr. Marco Peters PGY1
[2017-02-01] MEDS: Insulin Lispro (humaLOG) LOW Coverage SC SCH ×4 (08:55→22:47)
[2017-02-01] MEDS: Venlafaxine 75 mg ER Cap PO SCH (10:15)
[2017-02-01] MEDS: Potassium Chloride 20 mEq ER Tab PO SCH (10:16)
[2017-02-01] MEDS: Magnesium Oxide 400 mg Tab UD PO SCH (10:17)
[2017-02-01] MEDS: Pantoprazole 40 mg EC Tab PO SCH (10:17)
[2017-02-01] MEDS: Vancomycin 1.5 GM in Sodium Chloride 0.9% 500 ML IVPB SCH ×2 (10:17→21:53)
[2017-02-01] MEDS: Sodium Chloride 0.9% 1,000 ML IV SCH ×2 (10:19→20:25)
[2017-02-01] MEDS: POLYETHYLENE GLYCOL 3350 17 GM/Dose PACKET PO SCH ×2 (10:22→17:45)
--- NOTE | 2017-02-01 13:16 | PN ---
DATE: ENDO FOLLOWUP NOTE LOCATION: Room 370. SUBJECTIVE: This is a 41-year-old male who is presenting here with scrotal and perirectal abscesses and underwent incisional and drainage procedure and also supervening hyperglycemic accelerations, which has improved metabolically as started. His glucose values now are ranging from 109 mg/dL to 129 mg/dL. The latest chemistry showed BUN of 7, sodium of 139, potassium of 3.8, chloride of 103, CO2 of 30, glucose of 112, and creatinine of 0.6. So at this time, we will continue the modified basal and oral hypoglycemic therapy as given. We will continue the Levemir given as 14 units subcu at bedtime daily as ordered. We will continue also the Amaryl given as 4 mg b.i.d. before meals as ordered. We will continue the low-dose correction scale using regular insulin as ordered. He was actually on the combination of oral hypoglycemic therapy and basal insulin therapy for home management as given. We will obtain serial chemistries and supplement accordingly as needed. We will follow with you. Kirti Mc MD
[2017-02-01] MEDS: Magnesium Sulfate 2 GM in Sodium Chloride 0.9% 100 ML IVPB SCH ×2 (18:00→20:19)
--- NOTE | 2017-02-01 18:16 | CP.PCM.PN ---
Subjective - Date & Time of Evaluation Date of Evaluation: 02/01/17 Time of Evaluation: 11:10 - Subjective Subjective: Comfortable, no fevers, still with perineal pain. Objective - Vital Signs/Intake and Output Vital Signs (last 24 hours): Temp Pulse Resp BP Pulse Ox 98.2 F 61 18 140/69 95 01/31/17 06:00 01/31/17 18:19 01/31/17 06:00 01/31/17 18:19 01/31/17 06:00 Intake and Output: 02/01/17 02/01/17 06:59 18:59 Intake Total 420 Output Total 600 Balance -180 - Medications Medications: Current Medications Acetylcysteine (Acetylcysteine 20%) 4 ml IH [id number] [facility] Last Admin: 02/01/17 08:29 Dose: Not Given Atorvastatin Calcium (Lipitor) 40 mg PO DAILY [facility] Last Admin: 01/31/17 10:45 Dose: 40 mg Carvedilol (Coreg) 3.125 mg PO BID [facility] Last Admin: 01/31/17 18:19 Dose: 3.125 mg Docusate Sodium (Colace) 100 mg PO TID [facility] Last Admin: 01/31/17 18:19 Dose: 100 mg Ergocalciferol (Drisdol 50,000 Intl Units Cap) 1 cap PO Q48H [facility] Stop: 02/18/17 19:31 Last Admin: 01/31/17 20:08 Dose: 1 cap Glimepiride (Amaryl) 4 mg PO ACBD [facility] Hydromorphone HCl (Dilaudid) 0.5 mg IVP Q6H PRN PRN Reason: Pain, moderate (4-7) Last Admin: 02/01/17 06:41 Dose: 0.5 mg Vancomycin HCl 1.5 gm/ Sodium (Chloride) 500 mls @ 250 mls/hr IVPB Q12H [facility] PRN Reason: Protocol Last Admin: 01/31/17 22:08 Dose: 250 mls/hr Sodium Chloride (Sodium Chloride 0.9%) 1,000 mls @ 150 mls/hr IV .Q6H40M [facility] Last Admin: 01/31/17 05:00 Dose: 150 mls/hr Meropenem (Merrem Iv 1 Gm Premix) 50 mls @ 100 mls/hr IVPB Q8 [facility] PRN Reason: Protocol Stop: 02/02/17 23:16 Last Admin: 02/01/17 06:18 Dose: 100 mls/hr Insulin Detemir (Levemir) 14 unit SC HS [facility] Last Admin: 01/31/17 22:43 Dose: Not Given Insulin Human Lispro (Humalog Low) 0 units SC ACHS [facility] PRN Reason: Protocol Last Admin: 02/01/17 08:55 Dose: Not Given Levalbuterol HCl (Xopenex) 0.63 mg IH [id number] [facility] Last Admin: 02/01/17 08:30 Dose: 0.63 mg Magnesium Oxide (Mag-Ox) 400 mg PO DAILY [facility] Last Admin: 01/31/17 10:43 Dose: 400 mg Nicotine (Nicoderm Cq) 1 patch TD DAILY [facility] Last Admin: 01/31/17 10:45 Dose: Not Given Ondansetron HCl (Zofran Inj) 4 mg IVP Q6H PRN PRN Reason: Nausea/Vomiting Oxycodone HCl (Oxycodone Immediate Release Tab) 30 mg PO Q6H PRN PRN Reason: Pain, severe (8-10) Last Admin: 02/01/17 07:44 Dose: 30 mg Pantoprazole Sodium (Protonix Ec Tab) 40 mg PO DAILY [facility] Last Admin: 01/31/17 10:45 Dose: 40 mg Polyethylene Glycol (Miralax) 17 gm PO BID [facility] Last Admin: 01/31/17 10:54 Dose: Not Given Potassium Chloride (K-Dur 20 Meq Er Tab) 20 meq PO BRK [facility] Last Admin: 01/31/17 10:44 Dose: 20 meq Pregabalin (Lyrica) 75 mg PO BID [facility] Last Admin: 01/31/17 18:22 Dose: 75 mg Ursodiol (Actigall) 300 mg PO BID [facility] Last Admin: 01/31/17 18:19 Dose: 300 mg Venlafaxine HCl (Effexor Xr) 75 mg PO DAILY [facility] Last Admin: 01/31/17 10:45 Dose: 75 mg Warfarin Sodium (Coumadin) 5 mg PO 1800 [facility] PRN Reason: Protocol Last Admin: 01/31/17 18:22 Dose: 5 mg - Labs Labs: 02/01/17 06:00 02/01/17 06:00 PT 20.7 SECONDS (9.4-12.5) H 02/01/17 06:00 INR 1.86 (0.93-1.08) H 02/01/17 06:00 APTT 34.4 Seconds (25.1-36.5) 02/01/17 06:00 - Constitutional Appears: Non-toxic - Head Exam Head Exam: NORMAL INSPECTION - ENT Exam ENT Exam: Mucous Membranes Moist - Neck Exam Neck Exam: absent: Meningismus - Respiratory Exam Respiratory Exam: Decreased Breath Sounds - Cardiovascular Exam Cardiovascular Exam: +S1, +S2 - GI/Abdominal Exam GI & Abdominal Exam: Soft. absent: Tenderness Assessment and Plan - Assessment and Plan (Free Text) Plan: Assessment Sepsis due to perineal abscess / severe skin and skin structure infection growing methicillin-resistant coagulase negative staph S/P I and D POD #6 morbid obesity with BMI 44 chronic pain syndrome Plan Continue Vancomycin and Merrem (day 6 from surgery) - unable to rule out other bacteria such as gram negative bacilli in this patient with severe skin/skin structure infection therefore will continue broad-spectrum coverage - Surgery monitoring to see if they can remove the ruthie drains this week will continue to follow clinically HIV test is negative 01/2017
[2017-02-01 18:55] VITALS: O2SAT 96
[2017-02-01] MEDS: Insulin Detemir 100 units/ml Vial (Levemir) SC SCH (23:30)
[2017-02-02] MEDS: oxyCODONE 30 mg Immediate Release Tab PO PRN ×3 (01:41→14:41)
[2017-02-02] MEDS: Meropenem IV 1 gm in NS 50 ML IVPB SCH ×2 (05:36→13:03)
[2017-02-02 06:29] LABS: BASO # 0.02 K/mm3 (0.0-2.0); BASO % 0.2 % (0.0-3.0); EOS # 0.2 (0.0-0.7); EOS % 2.4 % (1.5-5.0); GRAN # 7.69 (1.4-6.5); GRAN % 75.5 % (50.0-68.0); HEMATOCRIT 35.2 % (42.0-52.0); LYMPH # 1.7 (1.2-3.4); LYMPH % 16.9 % (22.0-35.0); MEAN CORPUSCULAR HEMOGLOBIN 28.9 pg (25.0-35.0); MEAN CORPUSCULAR HGB CONC 32.1 g/dl (31.0-37.0); MEAN PLATELET VOLUME 9.4 fl (7.0-11.0); MONO # 0.5 (0.1-0.6); RED CELL DISTRIBUTION WIDTH 16.5 % (11.5-14.5); WHITE BLOOD COUNT 10.2 10^3/ul (4.5-11.0)
[2017-02-02] MEDS: HYDROmorphone 0.5 mg/0.5 ml ISec IVP PRN (06:35)
[2017-02-02 06:39] LABS: INR 2.13 (0.93-1.08)
[2017-02-02 07:07] LABS: ALB/GLOB RATIO 0.8 (1.1-1.8); ALKALINE PHOSPHATASE 151 U/L (38-126); ALT/SGPT 21 U/L (7-56); AST/SGOT 37 U/L (17-59); BILIRUBIN,DIRECT 0.5 mg/dL (0.0-0.4); BILIRUBIN,TOTAL 0.5 mg/dL (0.2-1.3); BLOOD UREA NITROGEN 6 mg/dL (7-21); CALCIUM 8.9 mg/dL (8.4-10.5); CARBON DIOXIDE 30 mmol/L (21-33); CHLORIDE 103 mmol/L (98-107); GFR AFRICAN-AMERICAN > 60; GLUCOSE,RANDOM 76 mg/dL (70-110); MAGNESIUM 1.9 mg/dL (1.7-2.2); POTASSIUM 3.7 mmol/L (3.6-5.0); SODIUM 139 mmol/L (132-148); TOTAL PROTEIN 6.9 g/dL (5.8-8.3)
--- NOTE | 2017-02-02 07:29 | CP.PCM.PN ---
Subjective - Date & Time of Evaluation Date of Evaluation: 02/02/17 Time of Evaluation: 07:00 - Subjective Subjective: General Surgery- Dr. Lara Patient seen and examined at bedside this AM. No acute events overnight. Patient able to urinate. remains tender around the scrotal area. swelling and erythema decreasing. one ruthie removed at bedside during encounter. denies fevers, chills, chest pain, shortness of breath, nausea, vomiting, diarrhea. Objective - Vital Signs/Intake and Output Vital Signs (last 24 hours): Temp Pulse Resp BP Pulse Ox 98.1 F 60 20 102/46 L 96 02/01/17 18:54 02/01/17 18:54 02/01/17 18:54 02/01/17 18:54 02/01/17 18:54 Intake and Output: 02/02/17 02/02/17 06:59 18:59 Intake Total 2380 Balance 2380 - Medications Medications: Current Medications Acetylcysteine (Acetylcysteine 20%) 4 ml IH [id number] [facility] Last Admin: 02/01/17 20:44 Dose: Not Given Atorvastatin Calcium (Lipitor) 40 mg PO DAILY [facility] Last Admin: 02/01/17 10:15 Dose: 40 mg Carvedilol (Coreg) 3.125 mg PO BID [facility] Last Admin: 02/01/17 17:59 Dose: 3.125 mg Docusate Sodium (Colace) 100 mg PO TID [facility] Last Admin: 02/01/17 17:59 Dose: 100 mg Ergocalciferol (Drisdol 50,000 Intl Units Cap) 1 cap PO Q48H [facility] Stop: 02/18/17 19:31 Last Admin: 01/31/17 20:08 Dose: 1 cap Glimepiride (Amaryl) 4 mg PO ACBD [facility] Last Admin: 02/01/17 17:59 Dose: 4 mg Hydromorphone HCl (Dilaudid) 0.5 mg IVP Q6H PRN PRN Reason: Pain, moderate (4-7) Last Admin: 02/02/17 06:35 Dose: 0.5 mg Vancomycin HCl 1.5 gm/ Sodium (Chloride) 500 mls @ 250 mls/hr IVPB Q12H [facility] PRN Reason: Protocol Last Admin: 02/01/17 21:53 Dose: 250 mls/hr Sodium Chloride (Sodium Chloride 0.9%) 1,000 mls @ 150 mls/hr IV .Q6H40M [facility] Last Admin: 02/01/17 20:25 Dose: 150 mls/hr Meropenem (Merrem Iv 1 Gm Premix) 50 mls @ 100 mls/hr IVPB Q8 [facility] PRN Reason: Protocol Stop: 02/02/17 23:16 Last Admin: 02/02/17 05:36 Dose: 100 mls/hr Insulin Detemir (Levemir) 14 unit SC HS [facility] Last Admin: 02/01/17 23:30 Dose: 14 unit Insulin Human Lispro (Humalog Low) 0 units SC ACHS [facility] PRN Reason: Protocol Last Admin: 02/01/17 22:47 Dose: Not Given Levalbuterol HCl (Xopenex) 0.63 mg IH [id number] [facility] Last Admin: 02/01/17 20:44 Dose: 0.63 mg Magnesium Oxide (Mag-Ox) 400 mg PO DAILY [facility] Last Admin: 02/01/17 10:17 Dose: 400 mg Nicotine (Nicoderm Cq) 1 patch TD DAILY [facility] Last Admin: 02/01/17 10:22 Dose: Not Given Ondansetron HCl (Zofran Inj) 4 mg IVP Q6H PRN PRN Reason: Nausea/Vomiting Oxycodone HCl (Oxycodone Immediate Release Tab) 30 mg PO Q6H PRN PRN Reason: Pain, severe (8-10) Last Admin: 02/02/17 01:41 Dose: 30 mg Pantoprazole Sodium (Protonix Ec Tab) 40 mg PO DAILY [facility] Last Admin: 02/01/17 10:17 Dose: 40 mg Polyethylene Glycol (Miralax) 17 gm PO BID [facility] Last Admin: 02/01/17 17:45 Dose: Not Given Potassium Chloride (K-Dur 20 Meq Er Tab) 20 meq PO BRK [facility] Last Admin: 02/01/17 10:16 Dose: 20 meq Pregabalin (Lyrica) 75 mg PO BID [facility] Last Admin: 02/01/17 17:59 Dose: 75 mg Ursodiol (Actigall) 300 mg PO BID [facility] Last Admin: 02/01/17 17:59 Dose: 300 mg Venlafaxine HCl (Effexor Xr) 75 mg PO DAILY [facility] Last Admin: 02/01/17 10:15 Dose: 75 mg Warfarin Sodium (Coumadin) 5 mg PO 1800 [facility] PRN Reason: Protocol Last Admin: 02/01/17 17:59 Dose: 5 mg - Labs Labs: 02/02/17 05:30 02/02/17 05:30 PT 23.8 SECONDS (9.4-12.5) H 02/02/17 05:30 INR 2.13 (0.93-1.08) H 02/02/17 05:30 APTT 35.0 Seconds (25.1-36.5) 02/02/17 05:30 - Constitutional Appears: Non-toxic, No Acute Distress - Head Exam Head Exam: ATRAUMATIC - Eye Exam Eye Exam: EOMI. absent: Scleral icterus - ENT Exam ENT Exam: Mucous Membranes Moist - Respiratory Exam Respiratory Exam: NORMAL BREATHING PATTERN. absent: Accessory Muscle Use, Respiratory Distress - Cardiovascular Exam Cardiovascular Exam: +S1, +S2. absent: Bradycardia, Tachycardia - GI/Abdominal Exam GI & Abdominal Exam: Soft. absent: Distended, Firm, Guarding, Rigid, Tenderness Additional comments: umbilical hernia, rectus diasthesis - Rectal Exam Additional comments: ruthie x2 one removed today. dark drainage from scrotum - Neurological Exam Neurological Exam: Alert, Awake, Oriented x3 - Skin Skin Exam: Erythema, Warm Assessment and Plan - Assessment and Plan (Free Text) Assessment: 41M perineal abscess s/p I&D POD #7 Plan: - ruthie x2 * removed 1 ruthie - keep area clean, encourage shower - c/w Abx - local wound care - patient would like to go home today; can be discharged from a surgical standpoint. - follow up with Dr. Lara in clinic - further recs per Dr. Lara surgical attending Christoph Peters PGY1
[2017-02-02 08:15] VITALS: BP 137/73; PULSE 57; RESP 18; TEMP 97.8
[2017-02-02] MEDS: Acetylcysteine 20% Inhal Soln (4ml) IH SCH ×2 (08:32→13:09)
[2017-02-02] MEDS: Levalbuterol 0.63 MG/3 ML Inhal Soln UD IH SCH ×2 (08:33→13:09)
[2017-02-02] MEDS: Magnesium Oxide 400 mg Tab UD PO SCH (09:12)
[2017-02-02] MEDS: Venlafaxine 75 mg ER Cap PO SCH (09:12)
[2017-02-02] MEDS: Pantoprazole 40 mg EC Tab PO SCH (09:13)
[2017-02-02] MEDS: Potassium Chloride 20 mEq ER Tab PO SCH (09:13)
[2017-02-02] MEDS: Insulin Lispro (humaLOG) LOW Coverage SC SCH ×2 (09:14→12:00)
[2017-02-02] MEDS: Vancomycin 1.5 GM in Sodium Chloride 0.9% 500 ML IVPB SCH (09:14)
[2017-02-02] MEDS: POLYETHYLENE GLYCOL 3350 17 GM/Dose PACKET PO SCH (09:18)
--- NOTE | 2017-02-02 12:09 | CP.PCM.PN ---
Subjective - Date & Time of Evaluation Date of Evaluation: 02/02/17 Time of Evaluation: 10:40 - Subjective Subjective: Comfortable in bed, no fevers overnight, still with perineal pain but a little less. Objective - Vital Signs/Intake and Output Vital Signs (last 24 hours): Temp Pulse Resp BP Pulse Ox 97.8 F 57 L 18 137/73 96 02/02/17 08:15 02/02/17 09:13 02/02/17 08:15 02/02/17 09:13 02/02/17 08:15 Intake and Output: 02/02/17 02/02/17 06:59 18:59 Intake Total 2380 Balance 2380 - Medications Medications: Current Medications Acetylcysteine (Acetylcysteine 20%) 4 ml IH [id number] [facility] Last Admin: 02/02/17 08:32 Dose: Not Given Atorvastatin Calcium (Lipitor) 40 mg PO DAILY [facility] Last Admin: 02/02/17 09:13 Dose: 40 mg Carvedilol (Coreg) 3.125 mg PO BID [facility] Last Admin: 02/02/17 09:13 Dose: 3.125 mg Docusate Sodium (Colace) 100 mg PO TID [facility] Last Admin: 02/02/17 09:13 Dose: 100 mg Ergocalciferol (Drisdol 50,000 Intl Units Cap) 1 cap PO Q48H [facility] Stop: 02/18/17 19:31 Last Admin: 01/31/17 20:08 Dose: 1 cap Glimepiride (Amaryl) 4 mg PO ACBD [facility] Last Admin: 02/02/17 08:44 Dose: Not Given Hydromorphone HCl (Dilaudid) 0.5 mg IVP Q6H PRN PRN Reason: Pain, moderate (4-7) Last Admin: 02/02/17 06:35 Dose: 0.5 mg Vancomycin HCl 1.5 gm/ Sodium (Chloride) 500 mls @ 250 mls/hr IVPB Q12H JUN PRN Reason: Protocol Last Admin: 02/02/17 09:14 Dose: 250 mls/hr Sodium Chloride (Sodium Chloride 0.9%) 1,000 mls @ 150 mls/hr IV .Q6H40M [facility] Last Admin: 02/01/17 20:25 Dose: 150 mls/hr Meropenem (Merrem Iv 1 Gm Premix) 50 mls @ 100 mls/hr IVPB Q8 JUN PRN Reason: Protocol Stop: 02/02/17 23:16 Last Admin: 02/02/17 05:36 Dose: 100 mls/hr Insulin Detemir (Levemir) 14 unit SC HS [facility] Last Admin: 02/01/17 23:30 Dose: 14 unit Insulin Human Lispro (Humalog Low) 0 units SC ACHS JUN PRN Reason: Protocol Last Admin: 02/02/17 09:14 Dose: Not Given Levalbuterol HCl (Xopenex) 0.63 mg IH [id number] [facility] Last Admin: 02/02/17 08:33 Dose: 0.63 mg Magnesium Oxide (Mag-Ox) 400 mg PO DAILY [facility] Last Admin: 02/02/17 09:12 Dose: 400 mg Nicotine (Nicoderm Cq) 1 patch TD DAILY [facility] Last Admin: 02/02/17 09:18 Dose: Not Given Ondansetron HCl (Zofran Inj) 4 mg IVP Q6H PRN PRN Reason: Nausea/Vomiting Oxycodone HCl (Oxycodone Immediate Release Tab) 30 mg PO Q6H PRN PRN Reason: Pain, severe (8-10) Last Admin: 02/02/17 08:36 Dose: 30 mg Pantoprazole Sodium (Protonix Ec Tab) 40 mg PO DAILY [facility] Last Admin: 02/02/17 09:13 Dose: 40 mg Polyethylene Glycol (Miralax) 17 gm PO BID [facility] Last Admin: 02/02/17 09:18 Dose: Not Given Potassium Chloride (K-Dur 20 Meq Er Tab) 20 meq PO BRK [facility] Last Admin: 02/02/17 09:13 Dose: 20 meq Pregabalin (Lyrica) 75 mg PO BID [facility] Last Admin: 02/02/17 09:13 Dose: 75 mg Ursodiol (Actigall) 300 mg PO BID [facility] Last Admin: 02/02/17 09:12 Dose: 300 mg Venlafaxine HCl (Effexor Xr) 75 mg PO DAILY [facility] Last Admin: 02/02/17 09:12 Dose: 75 mg Warfarin Sodium (Coumadin) 5 mg PO 1800 JUN PRN Reason: Protocol Last Admin: 02/01/17 17:59 Dose: 5 mg - Labs Labs: 02/02/17 05:30 02/02/17 05:30 PT 23.8 SECONDS (9.4-12.5) H 02/02/17 05:30 INR 2.13 (0.93-1.08) H 02/02/17 05:30 APTT 35.0 Seconds (25.1-36.5) 02/02/17 05:30 - Constitutional Appears: Non-toxic - Head Exam Head Exam: NORMAL INSPECTION - Respiratory Exam Respiratory Exam: Decreased Breath Sounds - Cardiovascular Exam Cardiovascular Exam: +S1, +S2 - GI/Abdominal Exam GI & Abdominal Exam: Soft. absent: Tenderness - Exam Exam: NORMAL INSPECTION (dressings in place) Assessment and Plan - Assessment and Plan (Free Text) Plan: Assessment Sepsis due to perineal abscess / severe skin and skin structure infection growing methicillin-resistant coagulase negative staph S/P I and D POD #7 morbid obesity with BMI 44 chronic pain syndrome Plan Continue Vancomycin and Merrem (day 7 from surgery) - unable to rule out other bacteria such as gram negative bacilli in this patient with severe skin/skin structure infection therefore will continue broad-spectrum coverage - Surgery monitoring to see if they can remove the ruthie drains this week will continue to follow clinically - would recommend at least another 2-3 weeks of antibiotics with weekly ESR, CRP, CBC, CMP, Vanco trough (12.7 on 01/30 and our target is 10-15 for skin and soft tissue infections) HIV test is negative 01/2017
--- NOTE | 2017-02-02 12:10 | PN ---
DATE: SUBJECTIVE: Seen the scrotal and perirectal areas are much improved. He is able to walk around and feeling better. He still needs the IV antibiotics. Per my point of view, the wound care can be done at home with a visiting nurse. One Marty remains. Blake Lara MD
--- NOTE | 2017-02-02 19:52 | PN ---
ENDOCRINOLOGY FOLLOWUP NOTE DATE: LOCATION: Room 370. SUBJECTIVE: This is a 41-year-old male with recent uncontrolled type 2 insulin-requiring diabetes, presenting here with perirectal and scrotal abscesses and underwent incision and drainage procedure and is now improving clinically and metabolically as noted thereof. Overnight, he had low normal glycemic profile with glucose levels ranging from 56 to 76 and 106 mg/dL. LABORATORY DATA: The latest chemistry showed a BUN of 6. Sodium 139, potassium 3.7, chloride 103, CO2 of 30, glucose 76 and creatinine 0.6. ASSESSMENT AND PLAN: So at this time, we will modify his basal and bolus insulin regimen and actually lower the Levemir to units subq at bedtime daily to start tonight. We will continue the low-dose correction scale using Humalog insulin as given. We will also modify the prandial insulin and discontinue the Humalog given at mealtime. We will continue as mentioned low dose and modify basal insulin, which will eventually be discontinued as his clinical condition improves. We will follow with you. We will also consider the addition of Levemir as his glycemic fluctuations supervene. Kirti Mc MD
[2017-02-02] MEDS ORDERED: Insulin Detemir 100 units/ml Vial (Levemir) SC SCH (22:00)
--- NOTE | 2017-02-03 07:41 | PN ---
ADDENDUM DATE: 01/28/2017 This is an addendum to the progress note done by Dr. Otilia Miller for 01/28/2017. IMPRESSION AND PLAN: 1. Dakota gangrene. 2. Status post incision and drainage. 3. Perirectal and scrotal abscess. 4. Probable right epididymitis. 5. Gram-positive cocci urinary tract infection and bacteriuria. 6. Gallbladder sludge and possible cholelithiasis. 7. Insulin-requiring diabetes mellitus with hemoglobin A1c of 6. 8. Hypertension. 9. Super morbid obesity. 10. History of pulmonary embolism and deep venous thrombosis. 11. History of nicotine dependence. 12. History of sleep apnea. 13. Chronic narcotic-dependent pain syndrome. 14. Right bundle-branch block. 15. Inguinal and intrapelvic lymphadenopathy. 16. Gait dysfunction. 17. Deconditioning. 18. Transient hypotension. 19. Bilateral lower extremity venous stasis and history of deep venous thrombosis. 20. Leukocytosis with granulocytosis. 21. Normocytic anemia. 22. Elevated erythrocyte sedimentation rate of 98. 23. Elevated alkaline phosphatase. 24. Hypovitaminosis D. 25. Hypertriglyceridemia. 26. Hyperprocalcitonemia. 27. Lactic acidosis. 28. Hypomagnesemia. 29. Proteinuria, microscopic hematuria, pyuria, and bacteriuria. 30. Coagulase-negative Staphylococcus aureus urinary tract infection. 31. Right bundle-branch block. 32. Necrotizing fasciitis of the perineum and scrotal wall and urethral stricture. 33. Status post Nava catheter insertion. The patient is followed up by Surgery, Endocrinology, Urology, Intensive Care Unit, and Infectious disease. The patient will be continued on the therapeutic intervention as per the MAR. Dictated and electronically signed, not read. Dakotah Cummins MD DOLLY
--- NOTE | 2017-02-03 08:43 | DS ---
FINAL PROGRESS NOTE AND DISCHARGE SUMMARY HISTORY OF PRESENT ILLNESS: The patient is seen lying in room number 370, bed 2. The patient was seen and examined with the patient's nurse, Rosangela Shaver. The patient still has chronic pain issues. The patient was seen by surgery today. PHYSICAL EXAMINATION: VITAL SIGNS: T-max is 98.1. The patient's blood pressure is 137/73 and 120/46. The patient's respirations are 18 to 20 and O2 saturation is 96%. INTAKE AND OUTPUT: Intake and output is not documented. GENERAL: The patient is seen and examined, lying in the bed. HEENT: Head examination shows normocephalic and atraumatic. HEENT examination shows pinkish pale conjunctiva. Pinkish pale conjunctiva. Anicteric sclerae. CARDIOVASCULAR: Examination shows S1 and S2, regular rhythm. LUNGS: Examination shows occasional rhonchi upper lung staley. GASTROINTESTINAL: Abdomen is obese and protuberant. GENITALIA: Male. No Nava catheter. Significantly decreased swelling of the scrotum nor erythema noted. Positive one [place] strain noted. EXTREMITIES: Shows chronic swelling of the lower extremity and no pitting edema, no calf numbness, and no Homans' sign. MUSCULOSKELETAL: Examination shows a body mass index which is elevated at 45. NEUROLOGIC: The patient is alert, awake, and oriented x3. He is able to move upper and lower extremity without assistance. Gait examination could not be tested. VASCULAR: Examination shows palpable pulses. NEUROLOGIC: The patient is alert, awake, and oriented x3. Cranial nerves II through XII are limited. DIAGNOSTIC STUDIES: On 02/02/2017, WBC of 10.2, hemoglobin and hematocrit of 11.3 and 35.2, and platelet of 275 with granulocytes 75% segs. PT of 23.8 and INR of 2.31. Sodium of 139, potassium of 3.7, chloride of 103, CO2 of 30, anion gap of 6, and BUN of 0.6. GFR is greater than 60, glucose is 76, calcium is 8.9, and magnesium is 1.9. LFTs shows alkaline phosphatase of 151. Hepatitis A, B and C and HIV negative. The patient's scrotum cultures are growing coagulase-negative Staphylococcus. Urine cultures; coagulase-negative Staphylococcus aureus. Urine cultures are negative. The patient received 2 units of FFP. The patient is seen by the Surgery team today.. The patient's one Marty drain was removed.. The patient was cleared for discharge from surgical point of view by the Surgical team. FINAL IMPRESSION PLAN AND DISCHARGE DIAGNOSES FINAL IMPRESSION PLAN AND DISCHARGE DIAGNOSES: 1. Scrotal abscess and cellulitis with perineal abscess and cellulitis with necrotizing infection and necrotizing fasciitis. 2. Sepsis. 3. Right middle lobe atelectasis. 4. Hepatic steatosis with hepatosplenomegaly. 5. Distended gallbladder with gallbladder sludge and probable cholelithiasis of increased density. 6. Splenomegaly. 7. Nonspecific bilateral perinephric stranding. 8. Colonic fecal retention. 9. 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 10. Necrotizing infection and fasciitis with soft tissue swelling bilaterally in the groin and anterior pelvic soft tissue extending into the scrotum with significant scrotal fluid and multiple foci of gas within the scrotum extending towards the perineum. 11. Fat containing ventral abdominal hernia. 12. Inguinal lymphadenopathy and intrapelvic lymphadenopathy. 13. Morbid obesity with elevated body mass index of 45. 14. Chronic narcotic dependent pain syndrome. 15. Bibasilar atelectasis. 16. Fatty infiltration of the liver and hepatic steatosis and hepatosplenomegaly. 17. Probable cholelithiasis with distended gallbladder and layering gallbladder sludge. 18. Splenomegaly. 19. Colonic fecal retention. 20. Perihepatic perisplenic ascites. 21. Fatty infiltration of the ventral abdominal wall. 22. Bilateral inguinal lymphadenopathy and intrapelvic lymphadenopathy. 23. Bilateral epididymal cysts with enlargement of the bilateral epididymal head. 24. Right epididymitis with increased vascular flow. 25. Left upper extremity peripherally inserted central catheter line placement. 26. Necrotizing fasciitis of the perineum and scrotum and urethral stricture status post Anva catheter placement and removal. 27. Perirectal his and scrotal abscesses. 28. 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 29. Incision and drainage washout and packing of the perirectal and scrotal abscesses. 30. Insulin-requiring diabetes mellitus. 31. Morbid obesity. 32. Transient hypotension. 33. Leukocytosis with granulocytosis. 34. Normocytic anemia. 35. Elevated erythrocyte sedimentation rate of 98. 36. 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 37. Transient hyponatremia. 38. Insulin-requiring diabetes mellitus with hemoglobin A1c of 6.0 and hyperglycemia. 39. Hypomagnesemia. 40. Hypovitaminosis D. 41. Hypertriglyceridemia with decreased HDL. 42. Hyper-procalcitonemia 43. Proteinuria, microscopic hematuria, pyuria, and bacteriuria. 44. Coagulase-negative Staphylococcus aureus urinary tract infection and scrotal abscess. 45. Status post 2 units of fresh frozen plasma transfusion. 46. Sepsis secondary to scrotal and perineal abscess and severe skin and skin structure infection, secondary to methicillin-resistant coagulase-negative Staphylococcus. 47. Methicillin-resistant staph Staphylococcus coagulase-negative urinary tract infection and scrotal abscess and sepsis. 48. Gallbladder sludge. 49. History of depression. 50. Diabetic neuropathy. 51. Constipation. 52. Nicotine dependence. 1. Scrotal, perirectal, perineal abscess with persistent scrotal abscess and necrotizing fasciitis. 2. Increasing bibasilar atelectasis and increasing bibasilar densities. 3. Hepatosplenomegaly with fatty infiltration of the liver and hepatic steatosis. 4. Gallbladder sludge and probable cholelithiasis with distended gallbladder. 5. Hepatosplenomegaly. 6. Nonspecific bilateral perinephric stranding. 7. Colonic rectal fecal stasis. 8. Perihepatic and perisplenic ascites. 9. 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 10. Significant periscrotal fluid and soft tissue swelling, unchanged from prior studies. 11. Multiple foci of gas within the scrotum extending towards the perineum, suggestive of scrotal abscess and necrotizing fasciitis. 12. Fatty infiltration of the ventral abdominal wall. 13. Bilateral inguinal lymphadenopathy and intrapelvic lymphadenopathy. 14. Super morbid obesity. 15. Deconditioning. 16. Transient hypotension. 17. History of hypertension. 18. 19. Narcotic dependent pain syndrome. 20. Leukocytosis with granulocytosis. 21. Elevated erythrocyte sedimentation rate of 98. 22. Normocytic anemia. 23. 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 24. Insulin-requiring diabetes mellitus, well controlled with hemoglobin A1c of 6.0. 25. Hypovitaminosis D. 26. Hypertriglyceridemia with decreased HDL of 24. 27. Elevated C-reactive protein of greater than 15. 28. Lactic acidosis. 29. Hyperprocalcitonemia. 30. Proteinuria, glycosuria, microscopic hematuria, pyuria, bacteriuria. 31. Coagulase-negative Staphylococcus aureus scrotal abscess. 32. Coagulase-negative urinary tract infection. 33. Status post 2 units of fresh frozen plasma transfusion. 34. Right bundle-branch block. 35. Questionable volume overload with increasing bibasilar densities and atelectasis. 36. Questionable cholelithiasis with gallbladder sludge and distended gallbladder. 37. Right epididymitis with enlarged heterogeneous right epididymal head with hypoechoic cyst and an increased vascular flow within the right epididymis. 38. Enlarged left epididymal head with left epididymal head hypoechoic cyst. 39. Scrotal edema and swelling with scrotal abscess. 40. Hepatic steatosis and fatty infiltration of the liver with hepatomegaly. 41. History of narcotic dependent pain syndrome. 42. Insulin-requiring type 2 diabetes mellitus. 43. Coumadin-dependent pulmonary embolism and deep venous thrombosis. 44. Dyslipidemia. 45. Depression. 46. Hypokalemia. 47. Morbid obesity. 48. Constipation, fecal retention. 49. Gait dysfunction. 1. Status post incision and drainage of perirectal abscess. 2. Necrotizing fasciitis. 3. Severe scrotal wall thickening and swelling. 4. Right epididymitis with increased vascular flow. 5. Bilateral epididymal cyst with enlargement of the bilateral epididymal heads heterogenous echogenicity 6. Enlarged right epididymal head and with heterogenous echogenicity with hypoechoic cyst. 7. Right epididymitis. 8. Fatty infiltration of the liver with hepatic steatosis. 9. Hepatosplenomegaly. 10. Gallbladder sludge without cholelithiasis an d cholecystitis. 11. Mild cardiomegaly. 12. Right bundle-branch block. 13. Nicotine addiction and dependence. 14. Narcotic dependent pain syndrome. 15. Multiple perineal scrotal abscess. 16. Sepsis. 17. Insulin-requiring diabetes mellitus. 18. Low grade fever. 19. Hypotension and history of hypertension. 20. Leukocytosis with granulocytosis. 21. Normocytic anemia. 22. Elevated erythrocyte sedimentation rate of 98. 23. 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 24. Hyperglycemia. 25. Hyponatremia. 26. Hypomagnesemia. 27. Elevated alkaline phosphatase, etiology undetermined. 28. Hypertriglyceridemia and hypercholesteremia with decreased HDL. 29. Lactic acidosis. 30. Proteinuria, glycosuria and microscopic hematuria, and bacteriuria 31. Super morbid obesity with body mass index of 45. 32. Perirectal abscess status post incision and drainage postop day number 1. 33. Uncontrolled decompensated type 2 insulin-requiring diabetes mellitus. 34. 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 35. 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 36. Status post incision and drainage washout and packing of the perirectal and scrotal abscess. 1. 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 2. Bilateral adenopathy with intrapelvic adenopathy. 3. Distended gallbladder with gallbladder sludge and possible cholelithiasis. 4. Hepatic steatosis and hepatomegaly and fatty infiltration of the liver. 5. Hepatosplenomegaly. 6. Super morbid obesity. 7. Questionable and possible perineal and scrotal abscess. 8. Bibasilar atelectasis, right more than the left. 9. Hepatic steatosis and fatty infiltration of the liver and hepatic splenomegaly. 10. Distended gallbladder with gallbladder sludge and probable gallstone. 11. Splenomegaly. 12. Bilateral perinephric stranding. 13. Fecal retention and fecal stasis. 14. Prostatic calcification. 15. Degenerative joint disease of the bones and the spine. 16. Inguinal and anterior pelvic soft tissue swelling extending into the scrotum with multiple foci of gas within the scrotum extending towards the perineum suggestive of necrotizing infection versus necrotizing fasciitis. 17. Fat containing ventral abdominal hernia. 18. Inguinal and intrapelvic lymphadenopathy. 19. Sepsis. 20. Fever. 21. Tachycardia. 22. Leukocytosis with granulocytosis. 23. Normocytic anemia. 24. Coumadin dependent, history of deep venous thrombosis and pulmonary embolism. 25. Insulin-requiring and dependent diabetes mellitus. 26. Hyponatremia. 27. Mild hypochloremia. 28. Hyperglycemia. 29. Lactic acidosis. 30. Hypertriglyceridemia, hypercholesteremia with decreased HDL. 31. Proteinuria, glycosuria, hematuria, pyuria and bacteriuria. 32. A negative blood type. 33. Nicotine addiction and dependence. 34. History of chronic narcotic dependent pain syndrome. 35. Hypovitaminosis D. 36. History of depression. 37. Diabetic neuropathy. 38. Hypokalemia. PLAN: At this time, the patient has been cleared by all subspecialty. The patient has declined to go to rehab. The patient will be discharged to Rehab if accepted or if the patient agrees or discharge home with home IV antibiotics, Home Wound Care visiting nurse, home health aide, and home PT. The patient has been advised to follow up with the PMD within 1 week. Also follow up with Surgery within 1 week and Urology followup within 1 week and follow up with Endocrinology within 1 week and Urology follow up within 1 week. MEDICATIONS: Discharge medications will be as follows. The patient is to resume most of his home medications. Discharge medications are Lipitor 40 mg daily, Coreg 3.125 twice a day, and vitamin D 50,000 units weekly. Colace 100 mg three times a day, Trulicity 1.5 mg subcutaneous weekly, Jardiance 10 mg twice a day, Lasix 40 mg daily, Amaryl 4 mg breakfast and dinner. Glyburide and metformin combination 2.5/500 two tablets twice a day,Toujeo SoloStar 60 units subcutaneous daily, and magnesium oxide 400 mg daily. Meropenem 1 g IV q. 8 hours. as per Infectious Diseases recommendation. Nicotine patch 21 mg daily. Oxycodone immediate release 30 mg t.i.d. p.r.n., Protonix 40 mg daily, K-Dur 20 mEq twice a day, Lyrica 75 mg twice a day, Actigall 300 mg twice a day, vancomycin 1.5 grams IV q. 12 hours., and Effexor 75 mg daily. Coumadin; the patient will resume the Coumadin which the patient is already on at home 5 mg every other day Thursday, Thursday, and and 6 mg Thursday, Thursday, Thursday, and Thursday. The patient during this hospitalization was extensively explained about his condition, diagnosis, test results, and recommendation by all the physicians was explained to the patient on a daily basis in layman's language. All questions concerned answered. The patient was advised close follow up with Surgery, Urology, PMD and Endocrinology. The patient was strictly counseled about cessation of smoking, weight loss, compliance with diet, and activity. Time spent in the entire discharge process more than 45 minutes. Dictated and electronically signed, not read. Signing off Dakotah Cummins MD Dakotah Cummins MD DOLLY
--- NOTE | 2017-02-17 20:52 | OP ---
PROCEDURE DATE: 01/26/2017 PREOPERATIVE DIAGNOSIS: Perirectal abscess, possibly with Dakota's. POSTOPERATIVE DIAGNOSIS: Perirectal abscess, possibly with Dakota's. OPERATION PERFORMED: Abscess drainage and debridement. DESCRIPTION OF PROCEDURE: In the operating room, the patient was identified by name, name of procedure, laterality, my rosanna. There were swelling in the scrotum and abscess in the perineum. The abscess was opened, drained. Amber was used widely to drain the infection. The scrotal sac was opened and drained. Penroses were placed in a loop sutured to itself. The area was lightly packed. The patient was taken to the recovery room in good condition after sponge and needle counts were declared correct and having noted that the rectum was otherwise unremarkable. There was no residual perirectal abscess at all. Blake Lara MD MTDLoretta
== END 2017-02-02 17:16 | disposition home or self-care (01) | DRG 581 ==
LOC: ED 17:33 → ERH 19:25 → 2RSO 21:21 → ICU 23:44 → 3RSO 01-28 16:03
PROVIDERS: ADMIT Internal Medicine; ATTEND Internal Medicine
PROC: 0V95XZZ Drainage of Scrotum, External Approach (ICD-10-PCS; 2017-01-26)
PROC: 0D9P00Z Drainage of Rectum with Drainage Device, Open Approach (ICD-10-PCS; principal; 2017-01-26 22:00)
PROC: 3E0F7GC Introduction of Other Therapeutic Substance into Respiratory Tract, Via Natural or Artificial Opening (ICD-10-PCS; 2017-01-27)
PROC: 30233K1 Transfusion of Nonautologous Frozen Plasma into Peripheral Vein, Percutaneous Approach (ICD-10-PCS; 2017-01-27)
PROC: 02HV33Z Insertion of Infusion Device into Superior Vena Cava, Percutaneous Approach (ICD-10-PCS; 2017-01-30)
PROC: B548ZZA Ultrasonography of Superior Vena Cava, Guidance (ICD-10-PCS; 2017-01-30)
DX: A41.2 Sepsis due to unspecified staphylococcus (principal); M72.6 Necrotizing fasciitis; E87.2 Acidosis; F11.20 Opioid dependence, uncomplicated; E11.65 Type 2 diabetes mellitus with hyperglycemia; E11.40 Type 2 diabetes mellitus with diabetic neuropathy, unspecified; E66.01 Morbid (severe) obesity due to excess calories; I50.42 Chronic combined systolic (congestive) and diastolic (congestive) heart failure; K61.1 Rectal abscess; L02.215 Cutaneous abscess of perineum; J44.9 Chronic obstructive pulmonary disease, unspecified; E87.1 Hypo-osmolality and hyponatremia; E87.6 Hypokalemia; R18.8 Other ascites; N39.0 Urinary tract infection, site not specified; I11.0 Hypertensive heart disease with heart failure; N49.2 Inflammatory disorders of scrotum; N49.3 Fournier gangrene; E83.42 Hypomagnesemia; K76.0 Fatty (change of) liver, not elsewhere classified; R16.2 Hepatomegaly with splenomegaly, not elsewhere classified; Z68.42 Body mass index [BMI] 45.0-49.9, adult; E78.5 Hyperlipidemia, unspecified; F17.210 Nicotine dependence, cigarettes, uncomplicated; E55.9 Vitamin D deficiency, unspecified; I87.2 Venous insufficiency (chronic) (peripheral); E78.00 Pure hypercholesterolemia, unspecified; K59.00 Constipation, unspecified; E78.1 Pure hyperglyceridemia; D64.9 Anemia, unspecified; F41.1 Generalized anxiety disorder; G47.33 Obstructive sleep apnea (adult) (pediatric); N50.3 Cyst of epididymis; G89.4 Chronic pain syndrome; M47.814 Spondylosis without myelopathy or radiculopathy, thoracic region; R26.9 Unspecified abnormalities of gait and mobility; H91.90 Unspecified hearing loss, unspecified ear; F32.9 Major depressive disorder, single episode, unspecified; I45.10 Unspecified right bundle-branch block; N35.9 Urethral stricture, unspecified; N45.1 Epididymitis; R31.29 Other microscopic hematuria; Z79.4 Long term (current) use of insulin; Z86.711 Personal history of pulmonary embolism; Z86.718 Personal history of other venous thrombosis and embolism; Z79.01 Long term (current) use of anticoagulants; K43.9 Ventral hernia without obstruction or gangrene